=== PATIENT | female | born 1985 | race Caucasian/White ===

== ENCOUNTER 2024-09-24 13:46 | Emergency (ER) | payer BC, SELFPAY ==
[2024-09-24 14:00] VITALS: BP 139/83; PULSE 108; TEMP 37.2; O2SAT 100; BMI 29.2
--- NOTE | 2024-09-24 14:08 | ED.UPPEXIN1 ---
HPI HPI - Extremity Injury (Upper) General Chief Complaint: Extremity Injury, Upper Stated Complaint: UPPER EXTREMITY INJURY Time Seen by Provider: 09/24/24 14:01 Source: patient Mode of arrival: walk-in Limitations: no limitations History of Present Illness HPI narrative: 39 year old female presents to the ED for right wrist pain, N/T. Onset was today while using her wood splitter. States it pulled on her arm. The pain is worse when making a fist. Denies kierra to the elbow. Related Data Allergies Allergy/AdvReac Type Severity Reaction Status Date / Time acetaminophen (From Vicodin) AdvReac Severe teeth icth Verified 09/24/24 14:04 hydrocodone (From Vicodin) AdvReac Severe teeth icth Verified 09/24/24 14:04 Opioid HPI Opioid Management Most Recent Pain and Opioid Data: No Data to Display Review of Systems ROS Constitutional Denies: fever or chills Ears, nose, mouth, and throat Denies: neck pain Cardiovascular Denies: chest pain Respiratory Denies: shortness of breath Musculoskeletal Reports: extremity pain and joint pain; Denies: back pain, neck pain or extremity swelling Neurological Reports: numbness in extremities; Denies: weakness in extremities PFSH PFSH Social History Little interest or pleasure in doing things: not at all Feeling down, depressed, or hopeless: not at all Exam Constitutional Vital Signs, click to edit/add: Last Vital Signs Temp 99 F 09/24/24 14:00 Pulse 108 H 09/24/24 14:00 Resp 20 09/24/24 14:00 BP 139/83 09/24/24 14:00 Pulse Ox 100 09/24/24 14:00 O2 Del Method Room Air 09/24/24 14:00 Common normals: no apparent distress and oriented x3 General appearance: cooperative Eye Common normals: conjunctivae normal and no scleral icterus Neck & C-Spine Common normals: supple Chest Chest: symmetrical chest wall rise Cardio Common normals: regular rate Rate: regular rate Peripheral pulses: radial pulses present Extremity Other: Tenderness to right wrist. No swelling or deformity noted. Full ROM to right hand and elbow. Denies tenderness to right hand and elbow. Distal sensation intact. Neuro Common normals: oriented x3 and moves all extremities Sensorium/orientation: awake and alert Course Vital Signs Vital signs: Vital Signs Temperature 99 F 09/24/24 14:00 Pulse Rate 108 H 09/24/24 14:00 Respiratory Rate 20 09/24/24 14:00 Blood Pressure 139/83 09/24/24 14:00 Pulse Oximetry 100 09/24/24 14:00 Oxygen Delivery Method Room Air 09/24/24 14:00 Temperature 99 F 09/24/24 14:00 Pulse Rate 108 H 09/24/24 14:00 Respiratory Rate 20 09/24/24 14:00 Blood Pressure 139/83 09/24/24 14:00 Pulse Oximetry 100 09/24/24 14:00 Oxygen Delivery Method Room Air 09/24/24 14:00 MDM - Extremity Injury (Upper) MDM Narrative Medical decision making narrative: X-ray showed no acute osseous abnormality. Findings were discussed. An vi wrap was applied. The application was checked and was appropriate; the RUE remained NVI. Follow up with pcp and/or an orthopedist for a recheck, further evaluation and treatment. Differential Diagnosis Differential diagnosis: Likely sprain and strain of wrist and fracture of wrist Medical Records Attestation: I reviewed the patient's medical records. Imaging Data XR: Attestation: I have reviewed the pertinent imaging results. Radiologist's impression: ITS Impressions Wrist X-Ray 09/24/24 14:17 IMPRESSION: 1. No acute bone abnormality. Electronically authenticated by: MARCELLO JOHNS Date: 09/24/2024 14:35 Discharge Plan Discharge Chief Complaint: Extremity Injury, Upper Clinical Impression: Sprain of right wrist Patient Disposition: Home, Self-Care Time of Disposition Decision: 14:42 Condition: Good Mode of Transportation: Private Vehicle Print Language: Filipino Instructions: How to Use an Elastic Bandage (ED), Wrist Sprain (ED) Additional Instructions: Return to the ER for worsening symptoms. Referrals: FRACISCO YI [Primary Care Provider] - 1 week Marcello Granger MD [Physician] - 1 week
--- NOTE | 2024-09-24 14:17 | XR_ITS ---
The [address] [address] Patient Name: GÓMEZ MCRAE MRN: [id number] date: 1985 Sex: F Assigned Patient Location: ER Current Patient Location: ED.MAIN Accession/Order Number: [id number] Exam Date: 09/24/2024 14:10 Report Date: 09/24/2024 14:35 At the request of: LILIBETH CANNON Procedure: XR wrist RT min 3V PROCEDURE: XR wrist RT min 3V HISTORY: injury COMPARISON: None. FINDINGS: BONES:Separate corticated ossification distal to the ulnar stylet process; remote fracture with incomplete osseous healing versus an ectopic bone formation. No acute fracture, dislocation, bone lesion. No significant degenerative joint disease. SOFT TISSUES:No visible soft tissue swelling. EFFUSION:None visible. OTHER: Negative. XR/XR wrist RT min 3V IMPRESSION: 1. No acute bone abnormality. Electronically authenticated by: PATSY JOHNS Date: 09/24/2024 14:35
== END 2024-09-24 15:00 | disposition home or self-care (01) ==
PROVIDERS: Emergency Provider Emergency Medicine; PCP Family Medicine
DX: S63.501A Unspecified sprain of right wrist, initial encounter (principal); X50.9XXA Other and unspecified overexertion or strenuous movements or postures, initial encounter
CPT/HCPCS: 73110; 99283

== ENCOUNTER 2024-11-25 11:42 | Outpatient (OUT) | payer BC, SELFPAY ==
--- NOTE | 2024-11-25 | XR_ITS ---
[address] [address] Patient Name: GÓMEZ MCRAE MRN: [id number] date: 1985 Sex: F Assigned Patient Location: Current Patient Location: Accession/Order Number: [id number] Exam Date: 11/25/2024 13:25 Report Date: 11/25/2024 13:26 At the request of: PATSY MARTÍNEZ MD Procedure: XR wrist RT min 3V 3 views right wrist plain film COMPARISON: 09/24/2024 HISTORY: Acute right wrist pain. Pain into the fifth metacarpal region. ACUTE FINDINGS: No acute findings. Old ulnar styloid fracture. DEGENERATIVE CHANGE: Unremarkable SOFT TISSUE FINDINGS: Unremarkable JOINT EFFUSION: None POSTOP CHANGES: None BONE MINERALIZATION: Adequate XR/XR wrist RT min 3V IMPRESSION: No acute bony findings. Impression dictated by: Luciano Stratton M.D.11/25/2024 1:26 PM Dictation Location: [facility] Electronically authenticated by: [id number] Y Date: 11/25/2024 13:26
--- OUTSIDE RECORDS SUMMARY | 2024-11-25 11:56 | XMS_ITS | CCD ---
Author Organization [facility] Care Team Providers Care Mobile Home Installer Name Role Phone DEANGELO MUKHERJEE Unavailable Unavailable CHRIS RAMOS Unavailable Unavailable Daren, Jayson U. Unavailable Unavailable No Family Physician Unavailable Unavailable No Family Physician Unavailable Unavailable Daren, Jayson U. Unavailable Unavailable No Family Physician Unavailable Unavailable No Family Physician Unavailable Unavailable Daren, Jayson Uddin Unavailable Unavailable Yunier, Humaira Unavailable Unavailable Yunier, Humaira Unavailable Unavailable Yunier, Humaira Unavailable Unavailable Yunier, Humaira Unavailable Unavailable EPIFANIO MOSLEY JR Referring Unavailable Pawel HA Admitting Unavailable Pawel HA Attending Unavailable EPIFANIO MOSLEY JR Referring Unavailable Unavailable Primary Care Provider UnavailANNA Cooley Attending Unavailable FLAVIA VILLANUEVA Primary Care Unavailable Bunting, DO Saad Primary Care Provider [phone] Bunting, DO Saad Attending Provider Bunting, DO Saad Primary Care Provider DO Bharath Soto Attending Provider Bunting, DO Saad Primary Care Provider [phone] DO Bharath Soto Attending Provider Bunting, Saad R Primary Care Provider Bunting, DO Saad Primary Care Provider [phone] Bunting, DO Saad Attending Provider MICHAEL LEIGH Attending Unavailable MICHAEL LEIGH Referring Unavailable MICHAEL LEIGH Attending Unavailable MAHESH ZAPATA Attending Unavailable Bunting, Saad Attending Unavailable Bunting, Saad Primary Care Unavailable Bunting, Saad Admitting Unavailable Bunting, Saad Attending Unavailable Bunting, Saad Primary Care Unavailable Bunting, Saad Admitting Unavailable Allergies Allergy Classification Reported Allergen(s) Allergy Type Date of Onset Reaction(s) Facility (6 sources) Acetaminophen / HYDROcodone; Translations: [HYDROCODONE-ACET AMINOPHEN] Drug Allergy 5 Rash [facility] Repository (6 sources) avocado oil; Translations: [AVOCADO] Drug Allergy 5 Other (See Comments), Anaphylaxis, Hives, Itching, Unknown [facility] Repository Medications Current Medications Medication Drug Class(es) Dates Sig (Normalized) Sig (Original) fluticasone propionate 0.05 mg/actuat metered dose nasal spray (1 source) Corticosteroid Start: 12-07-2020 take 2 spray(s) nasal route once daily fluticasone (FLONASE) 50 MCG/ACT nasal spray Indications: Retention cyst of nasal sinus SPRAY 2 SPRAYS INTO EACH NOSTRIL EVERY DAY 1 Bottle 1 12/07/2020 Active ibuprofen 200 mg oral tablet (4 sources) Nonsteroidal Anti-inflammatory Drug ibuprofen 200 MG tablet Take by mouth Active meloxicam 15 mg oral tablet (1 source) Nonsteroidal Anti-inflammatory Drug Start: 03-19-2022 take 1 tablet by mouth once daily as needed for pain meloxicam (MOBIC) 15 MG tablet Take 1 tablet by mouth daily as needed for Pain 90 tablet 1 03/19/2022 Active SUMAtriptan 50 mg oral tablet (1 source) Serotonin-1b and Serotonin-1d Receptor Agonist Start: 05-03-2018 SUMAtriptan (IMITREX) 50 MG tablet Indications: Intractable migraine with status migrainosus, unspecified migraine type Take 1 tablet by mouth once as needed for Migraine Can take second dose 2 hrs later if headache persists 9 tablet 0 05/03/2018 Active Completed/Discontinued Medications Medication Drug Class(es) Dates Sig (Normalized) Sig (Original) acetaminophen 500 mg oral tablet (5 sources) Start: 03-19-2022 End: 03-19-2022 acetaminophen (TYLENOL) tablet 1,000 mg acetaminophen (T ylenol) 325 MG suppository Insert into the rectum Active 1 ml ketorolac tromethamine 30 mg/ml cartridge (1 source) Nonsteroidal Anti-inflammatory Drug, Cyclooxygenase Inhibitor Start: 03-19-2022 End: 03-19-2022 ketorolac (TORADOL) injection 30 mg Problems Active Problems Problem Classification Problem Date Documented Date Episodic/Chronic Abdominal pain (2 sources) Finding of sensation of abdomen; Translations: [Unspecified abdominal pain] 05-14-2024 Episodic Adjustment disorders (1 source) Adjustment disorder with depressed mood; Translations: [Adjustment disorder with depressed mood] Onset: 07-07-2018 07-07-2018 Chronic Disorders of lipid metabolism (1 source) Hypercholesterolemia; Translations: [Pure hypercholesterolemia, unspecified] Onset: 05-11-2004 05-01-2018 Chronic Headache; including migraine (1 source) Migraine; Translations: [Migraine, unspecified, not intractable, without status migrainosus] Onset: 07-04-2018 07-04-2018 Chronic Immunizations and screening for infectious disease (2 sources) Patient encounter status; Translations: [Encounter for screening for human papillomavirus (HPV)] 05-14-2024 Episodic Nonmalignant breast conditions (1 source) Unspecified lump in the right breast, unspecified quadrant; Translations: [Unspecified lump in the right breast, unspecified quadrant] Onset: 06-06-2024 Episodic Other endocrine disorders (1 source) Polycystic ovary; Translations: [Polycystic ovarian syndrome] Onset: 02-27-2004 08-25-2017 Chronic Other female genital disorders (2 sources) Cervical intraepithelial neoplasia grade 1; Translations: [Mild cervical dysplasia] 05-14-2024 Episodic Other non-traumatic joint disorders (1 source) Pain in right hip; Translations: [Pain in right hip] Onset: 10-05-2018 Episodic Other screening for suspected conditions (not mental disorders or infectious disease) (2 sources) Cancer cervix screening status; Translations: [Encounter for screening for malignant neoplasm of cervix] 05-14-2024 Episodic Superficial injury; contusion (1 source) Contusion of right forearm; Translations: [Contusion of right forearm, initial encounter] Episodic Unclassified (1 source) Unknown / UNK(Unknown) Onset: 05-07-2018 Past or Other Problems Problem Classification Problem Date Documented Date Episodic/Chronic Cancer of cervix (1 source) Low grade squamous intraepithelial lesion on cervical Papanicolaou smear; Translations: [Low grade squamous intraepithelial lesion on cytologic smear of cervix (LGSIL)] Onset: 09-21-2016 08-25-2017 Episodic Residual codes; unclassified (1 source) Influenza vaccination declined; Translations: [Immunization not carried out because of patient refusal] Onset: 08-12-2020 08-12-2020 Episodic Residual codes; unclassified (1 source) Tobacco user; Translations: [Tobacco use] Onset: 08-12-2020 08-12-2020 Episodic Sprains and strains (1 source) Acetabular labrum tear; Translations: [Other sprain of unspecified hip, initial encounter] Onset: 10-27-2015 08-25-2017 Episodic Unclassified (1 source) R51 XRAY Onset: 05-07-2018 Results Test Name Value Interpretation Reference Range Facility US extremity nonvascularon 1 US extremity nonvascular [facility] Main [place] [address] [place] [address] Ultrasound Report Signed Patient: Jayla Perla MR#: [id number] : 1985 Acct:[id number] Age/Sex: 39 / F ADM Date: 06/06/24 Loc: [facility] Room: Type: [facility] Attending Dr: Saad Mcclain DO Ordering Provider: Saad Mcclain DO Date of Service: 06/06/24 US/US extremity nonvascular: BILATERAL AXILLARY MASS ([id number]) US/US extremity nonvascular: AXILLARY Copies to: Saad Mcclain DO US extremity nonvascular, US extremity nonvascular 06/06/2024 8:09 AM SIGNS AND SYMPTOMS: Axillary pain bilaterally COMPARISON: None. FINDINGS: Grayscale and color Doppler sonographic images of the axilla were obtained bilaterally. Within the left axilla there are benign-appearing lymph nodes measuring up to 1.1 cm in short axis without evidence of cortical thickening. There is no evidence of mass, architectural distortion, fluid collection, or cystic change. Within the right axilla there are benign-appearing lymph nodes measuring up to 0.5 cm in short axis. There is no evidence of cortical thickening. No evidence of mass, architectural distortion, fluid collection, or cystic change. US/US extremity nonvascular IMPRESSION: Prominent axillary lymph nodes are noted, left greater than right. No features suspicious for malignancy. Close clinical observation is recommended with repeat imaging as symptoms warrant. ASSESSMENT: BIRADS-2 Benign RECOMMENDATION: Close clinical observation is recommended with repeat imaging as symptoms warrant. Impression dictated by: Sri Ricci M.D.06/06/2024 8:36 AM Dictation Location: [facility] Tech: Jennifer Méndez Transcribed By: JAMIE 06/06/24835 Dictated By: Sri Ricci II, MD 06/06/24830 Signed By: 06/06/24835 Normal [facility] Alanine aminotransferase [En zymatic activity/volume] in Serum or PlasmaOrdered By: Saad Bunting on 05-29-2024 ALT [Catalytic activity/Vol] 9 U/L Normal 7-52 [facility] Comment on above: Performed By: #### C MP, CBC, LIPID, LDH #### [place] [address] [place] Albumin [Mass/volume] in Ser um or Plasma by Bromocresol green (BCG) dye binding methoOrdered By: Saad Bunting on 05-29-2024 Albumin BCG dye [Mass/Vol] 4.6 g/dL 3.5-5.7 [facility] Alkaline phosphatase [Enzyma tic activity/volume] in Serum or PlasmaOrdered By: Saad Bunting on 05-29-2024 ALP [Catalytic activity/Vol] 63 U/L Normal 34-104 [facility] Comment on above: Performed By: #### C MP, CBC, LIPID, LDH #### [facility] [address] [place] [address] Aspartate aminotransferase [ Enzymatic activity/volume] in Serum or PlasmaOrdered By: Saad Bunting on 05-29-2024 AST [Catalytic activity/Vol] 13 U/L Normal 13-39 [facility] Comment on above: Performed By: #### C MP, CBC, LIPID, LDH #### [facility] [address] [place] [address] Automated basophil %Ordered By: Saad Bunting on 05-29-2024 Basophils/100 WBC (Bld) 0.7 % Normal . [facility] Comment on above: Performed By: #### C MP, CBC, LIPID, LDH #### [facility] [address] [place] [address] [place] Automated basophil countOrde red By: Saad Bunting on 10-09-2024 Basophils (Bld) [#/Vol] 0.0 10*3/uL Normal 0.0-0.2 [facility] Comment on above: Result Comment: PERF ORMED BY: [place] [address] PATHOLOGIST ENAMEL APPLIER RENE VALENZUELA M.D. Performed By: #### C MP, CBC, LIPID, LDH #### [address] Automated blood monocyte cou ntOrdered By: Saad Bunting on 05-29-2024 Monocytes (Bld) [#/Vol] 0.4 10*3/uL Normal 0.0-0.8 [facility] Comment on above: Performed By: #### C MP, CBC, LIPID, LDH #### [address] Automated eosinophil %Ordere d By: Saad Bunting on 05-29-2024 Eosinophils/100 WBC (Bld) 1.9 % Normal . [facility] Comment on above: Performed By: #### C MP, CBC, LIPID, LDH #### [address] Automated eosinophil countOr dered By: Saad Bunting on 05-29-2024 Eosinophils (Bld) [#/Vol] 0.1 10*3/uL Normal 0.0-0.45 [facility] Comment on above: Performed By: #### C MP, CBC, LIPID, LDH #### [address] Automated monocyte %Ordered By: Saad Bunting on 05-29-2024 Monocytes/100 WBC (Bld) 5.1 % Normal . [facility] Comment on above: Performed By: #### C MP, CBC, LIPID, LDH #### [address] Automated neutrophil %Ordere d By: Saad Bunting on 05-29-2024 Neutrophils/100 WBC (Bld) 60.9 % Normal . [facility] Comment on above: Performed By: #### C MP, CBC, LIPID, LDH #### [facility] [address] [place] [address] [place] Bilirubin.total [Mass/volume ] in Serum or PlasmaOrdered By: Saad Bunting on 05-29-2024 Bilirubin [Mass/Vol] 0.6 mg/dL Normal 0.3-1.0 [facility] Comment on above: Performed By: #### C MP, CBC, LIPID, LDH #### [facility] [address] [place] [address] [place] Calcium [Mass/volume] in Ser um or PlasmaOrdered By: Saad Bunting on 05-29-2024 Calcium [Mass/Vol] 9.4 mg/dL Normal 8.6-10.3 [facility] Comment on above: Performed By: #### C MP, CBC, LIPID, LDH #### [facility] [address] Carbon dioxide, total [Moles /volume] in Serum or PlasmaOrdered By: Saad Bunting on 05-29-2024 CO2 [Moles/Vol] 23.8 mmol/L Normal 21.0-31.0 [facility] Comment on above: Performed By: #### C MP, CBC, LIPID, LDH #### [facility] [address] [place] [address] [place] Chloride [Moles/volume] in S nidhi or PlasmaOrdered By: Saad Bunting on 05-29-2024 Chloride [Moles/Vol] 107 mmol/L Normal 98-107 [facility] Comment on above: Performed By: #### C MP, CBC, LIPID, LDH #### [facility] [address] [place] [address] [place] Cholesterol [Mass/volume] in Serum or PlasmaOrdered By: Saad Bunting on 05-29-2024 Cholesterol [Mass/Vol] 204 mg/dL High 140-200 [facility] Comment on above: Chol less than 200 m g/dl low riskChol 201-239 mg/dl borderline riskChol 240 mg/dl and greater high risk Result Comment: Chol less than 200 mg/dl low risk Chol 201-239 mg/dl borderline risk Chol 240 mg/dl and greater high risk Performed By: #### C MP, CBC, LIPID, LDH #### [address] Cholesterol in LDL Calc [Mas s/Vol]Ordered By: Saad Mcclain on 05-29-2024 Cholesterol in LDL [Mass/Vol] 127 mg/dL High 0-100 [facility] Comment on above: LDL ATP III CLASSIFI CATIONLDL less than 100 mg/dL OptimalLDL 100-129 mg/dL Near or above optimalLDL 130-159 mg/dL Borderline highLDL 160-189 mg/dL HighLDL greater than 189 mg/dL Very high Cholesterol in VLDL Calc [Ma ss/Vol]Ordered By: Saad Mcclain on 05-29-2024 Cholesterol in VLDL [Mass/Vol] 32 mg/dL [facility] Complete Blood Count Auto Di ffon 05-29-2024 Mean Corpuscular HGB Conc 33.8 g/dL Normal 32.0-35.0 [facility] Comment on above: Performed By: #### C MP, CBC, LIPID, LDH #### [address] NRBC% 0.1 /100{WBC} Normal 0-0.5 [facility] Comment on above: Performed By: #### C MP, CBC, LIPID, LDH #### [address] Comprehensive Metabolic Pane aurora 05-29-2024 Albumin [Mass/Vol] 4.6 g/dL Normal 3.5-5.7 [facility] Comment on above: Performed By: #### C MP, CBC, LIPID, LDH #### [place] [address] [place] GFR/1.73 sq M.predicted MDRD (S/P/Bld) [Vol rate/Area] mL/min/{1.73_m2} Normal [facility] Comment on above: Performed By: #### C MP, CBC, LIPID, LDH #### [address] Creatinine [Mass/volume] in Serum or PlasmaOrdered By: Saad Mcclain on 05-29-2024 Creatinine [Mass/Vol] 0.73 mg/dL Normal 0.60-1.20 [facility] Comment on above: Performed By: #### C MP, CBC, LIPID, LDH #### [facility] [address] Erythrocyte distribution wid th [Ratio] by Automated countOrdered By: Saad Mcclain on 05-29-2024 Erythrocyte distribution width (RBC) [Ratio] 13.5 % Normal 11.9-15.3 [facility] Comment on above: Performed By: #### C MP, CBC, LIPID, LDH #### [address] Erythrocytes [#/volume] in B lood by Automated countOrdered By: Saad Mcclain on 05-29-2024 RBC (Bld) [#/Vol] 4.57 10*6/uL Normal 3.60-5.00 [facility] Comment on above: Performed By: #### C MP, CBC, LIPID, LDH #### [address] Glucose [Mass/volume] in Ser um or PlasmaOrdered By: Saad Mcclain on 05-29-2024 Glucose [Mass/Vol] 93 mg/dL Normal 70-100 [facility] Comment on above: ADA recommended refe rence rangeRandom Glucose Reference Range is dependent on time and content of last meal. Glucose of more than 200 mg/dL in a nonstressed, ambulatory subject supports the diagnosis of Diabetes Mellitus. Result Comment: [place] om Glucose Reference Range is dependent on time and content of last meal. Glucose of more than 200 mg/dL in a nonstressed, ambulatory subject supports the diagnosis of Diabetes Mellitus. ADA recommended reference range Performed By: #### C MP, CBC, LIPID, LDH #### [address] Hematocrit [Volume Fraction] of Blood by Automated countOrdered By: Saad Mcclain on 05-29-2024 Hematocrit (Bld) [Volume fraction] 40.2 % Normal 34.0-46.4 [facility] Comment on above: Performed By: #### C MP, CBC, LIPID, LDH #### [facility] [address] Hemoglobin [Mass/volume] in BloodOrdered By: Saad Mcclain on 05-29-2024 Hemoglobin (Bld) [Mass/Vol] 13.6 g/dL Normal 11.8-15.4 [facility] Comment on above: Performed By: #### C MP, CBC, LIPID, LDH #### [facility] [address] LDH Lactate Dehydrogenaseon 05-29-2024 LDH Lactate Dehydrogenase 117 U/L Low 140-271 [facility] Comment on above: Performed By: #### C MP, CBC, LIPID, LDH #### [facility] [address] Lactate dehydrogenase [Enzym atic activity/volume] in Serum or Plasma by Lactate to pyOrdered By: Saad Mcclain on 05-29-2024 LDH Lactate to pyruvate reaction [Catalytic activity/Vol] 117 U/L Low 140-271 [facility] Leukocytes [#/volume] correc peggy for nucleated erythrocytes in Blood by Automated counOrdered By: Saad Mcclain on 05-29-2024 WBC corrected for nucl RBC Auto (Bld) [#/Vol] 6.9 10*3/uL 3.8-11.6 [facility] Leukocytes [#/volume] in Blo od by Automated countOrdered By: Saad Mcclain on 05-29-2024 WBC (Bld) [#/Vol] 6.9 10*3/uL Normal 3.8-11.6 [facility] Comment on above: Performed By: #### C MP, CBC, LIPID, LDH #### [facility] [address] Lipid Panelon 05-29-2024 LDL Cholesterol,Calculate d 127 mg/dL High 0-100 [facility] Comment on above: Result Comment: LDL ATP III CLASSIFICATION LDL less than 100 mg/dL Optimal LDL 100-129 mg/dL Near or above optimal LDL 130-159 mg/dL Borderline high LDL 160-189 mg/dL High LDL greater than 189 mg/dL Very high Performed By: #### C MP, CBC, LIPID, LDH #### [address] Triglyceride w/Reflex 164 mg/dL High 0-149 [facility] Comment on above: Result Comment: TRIG ATP III CLASSIFICATION TRIG less than 150 mg/dL Normal TRIG 150-199 mg/dL Borderline high TRIG 200-500 mg/dL High TRIG greater than 500 mg/dL Very high Standard traceable to the Center for Disease Conrtrol and Prevention (CDC) test method. Performed By: #### C MP, CBC, LIPID, LDH #### [address] VLDL CHOLESTEROL 32 mg/dL Normal [facility] Comment on above: Performed By: #### C MP, CBC, LIPID, LDH #### [address] Lymphocytes [#/volume] in Bl ood by Automated countOrdered By: Saad Bunting on 05-29-2024 Lymphocytes (Bld) [#/Vol] 2.2 10*3/uL Normal 1.00-4.8 [facility] Comment on above: Performed By: #### C MP, CBC, LIPID, LDH #### [address] Lymphocytes/100 leukocytes i n Blood by Automated countOrdered By: Saad Bunting on 05-29-2024 Lymphocytes/100 WBC (Bld) 31.4 % Normal . [facility] Comment on above: Performed By: #### C MP, CBC, LIPID, LDH #### [address] MCH [Entitic mass] by Automa peggy countOrdered By: Saad Bunting on 05-29-2024 MCH (RBC) [Entitic mass] 29.7 pg Normal 24.7-34.3 [facility] Comment on above: Performed By: #### C MP, CBC, LIPID, LDH #### [address] MCHC Auto (RBC) [Mass/Vol]Or dered By: Saad Bunting on 05-29-2024 MCHC (RBC) [Mass/Vol] 33.8 g/dL 32.0-35.0 [facility] MCV [Entitic volume] by Auto mated countOrdered By: Saad Bunting on 05-29-2024 MCV (RBC) [Entitic vol] 87.9 fL Normal 80-100 [facility] Comment on above: Performed By: #### C MP, CBC, LIPID, LDH #### [address] [place] 05-29-2024 Monotest Negative Normal Negative [facility] Comment on above: Result Comment: PERF ORMED BY: [place] [address] PATHOLOGIST ENAMEL APPLIER RENE VALENZUELA M.D. Performed By: #### M ONOTEST #### [address] Neutrophils [#/volume] in Bl ood by Automated countOrdered By: Saad Bunting on 05-29-2024 Neutrophils (Bld) [#/Vol] 4.2 10*3/uL Normal 1.8-7.7 [facility] Comment on above: Performed By: #### C MP, CBC, LIPID, LDH #### [address] No Panel InformationOrdered By: Saad Bunting on 05-29-2024 Estimated GFR (CKD-EPI) > 60.0 mL/Min [facility] Creatinine Clearance (Chem N/A [facility] Nucleated erythrocytes [Pres ence] in Blood by Automated countOrdered By: Saad Bunting on 05-29-2024 Nucleated RBC Auto Ql (Bld) 0.1 /100{WBC} 0-0.5 [facility] Platelet mean volume [Entiti c volume] in Blood by Automated countOrdered By: Saad Bunting on 05-29-2024 Platelet mean volume (Bld) [Entitic vol] 8.4 fL Normal 6.3-10.7 [facility] Comment on above: Performed By: #### C MP, CBC, LIPID, LDH #### [address] Platelets [#/volume] in Bloo d by Automated countOrdered By: Saad Bunting on 05-29-2024 Platelets (Bld) [#/Vol] 304 10*3/uL Normal 150-450 [facility] Comment on above: Performed By: #### C MP, CBC, LIPID, LDH #### [address] Potassium [Moles/volume] in Serum or PlasmaOrdered By: Saad Bunting on 05-29-2024 Potassium [Moles/Vol] 4.0 mmol/L Normal 3.5-5.1 [facility] Comment on above: Performed By: #### C MP, CBC, LIPID, LDH #### [address] Protein [Mass/volume] in Ser um or PlasmaOrdered By: Saad Bunting on 05-29-2024 Protein [Mass/Vol] 7.1 g/dL Normal 6.4-8.9 [facility] Comment on above: Performed By: #### C MP, CBC, LIPID, LDH #### [address] Serum globulin measurement b y calculation (mass/volume)Ordered By: Saad Bunting on 05-29-2024 Globulin (S) [Mass/Vol] 2.5 g/dL Normal [facility] Comment on above: Performed By: #### C MP, CBC, LIPID, LDH #### [address] Serum heterophile antibody d etection by latex agglutinationOrdered By: Saad Bunting on 05-29-2024 Heterophile Ab LA Ql (S) Negative Negative [facility] Serum or plasma albumin/glob ulin mass ratioOrdered By: Saad Bunting on 05-29-2024 Albumin/Globulin [Mass ratio] 1.8 {ratio} Normal [facility] Comment on above: Performed By: #### C MP, CBC, LIPID, LDH #### [address] [place] [address] [place] Serum or plasma anion gap de terminationOrdered By: Saad Bunting on 05-29-2024 Anion gap [Moles/Vol] 11.2 mmol/L Normal 6.0-15.0 [facility] Comment on above: Performed By: #### C MP, CBC, LIPID, LDH #### [address] Serum or plasma high density lipoprotein (HDL) cholesterol measurementOrdered By: Saad Bunting on 05-29-2024 Cholesterol in HDL [Mass/Vol] 44 mg/dL Normal 23-92 [facility] Comment on above: HDL CHOL ATP-III CLA SSIFICATION Cardiovascular RiskHDL > or equal to 60 mg/dL LOWHDL < 40 mg/dL HIGH Result Comment: HDL CHOL ATP-III CLASSIFICATION Cardiovascular Risk HDL > or equal to 60 mg/dL LOW HDL < 40 mg/dL HIGH Performed By: #### C MP, CBC, LIPID, LDH #### [address] Serum or plasma total choles terol/high density lipoprotein (HDL) cholesterol mass ratOrdered By: Saad Bunting on 05-29-2024 Cholesterol.total/Cho lesterol in HDL [Mass ratio] 4.6 {ratio} Normal <5.0 [facility] Comment on above: Result Comment: PERF ORMED BY: [place] [address] PATHOLOGIST ENAMEL APPLIER RENE VALENZUELA M.D. Performed By: #### C MP, CBC, LIPID, LDH #### [address] Sodium [Moles/volume] in Ser um or PlasmaOrdered By: Saad Bunting on 05-29-2024 Sodium [Moles/Vol] 138 mmol/L Normal 136-145 [facility] Comment on above: Performed By: #### C MP, CBC, LIPID, LDH #### [address] Triglyceride [Mass/volume] i n Serum or PlasmaOrdered By: Saad Bunting on 05-29-2024 Triglyceride [Mass/Vol] 164 mg/dL High 0-149 [facility] Comment on above: TRIG ATP III CLASSIF ICATIONTRIG less than 150 mg/dL NormalTRIG 150-199 mg/dL Borderline highTRIG 200-500 mg/dL High TRIG greater than 500 mg/dL Very highStandard traceable to the Center for Disease Conrtrol and Prevention (CDC) test method. Urea nitrogen [Mass/volume] in Serum or PlasmaOrdered By: Saad Mcclain on 05-29-2024 Urea nitrogen [Mass/Vol] 13 mg/dL Normal 7-25 [facility] Comment on above: Performed By: #### C MP, CBC, LIPID, LDH #### [facility] [address] Image-guided pap and hpv mrn a e6/e7 reflex genotypes 16, 18/45on 05-21-2024 Radio Antenna Installer Cyto stain Nom (Cvx/Vag) [ID] Comment [facility] Comment on above: Mynor ramesh, Seed Trucker (ASCP) Cytology report Cyto stain Doc (Cvx/Vag) Comment Abnormal [facility] Comment on above: EPITHELIAL CELL ABNO RMALITY. LOW-GRADE SQUAMOUS INTRAEPITHELIAL LESION (LSIL); (ENCOMPASSING HUMAN PAPILLOMAVIRUS /MILD DYSPLASIA/CIN1). Cytology report Cyto stain.thin prep Doc (Cvx/Vag) Comment [facility] Comment on above: This liquid based Th inPrep(R) pap test was screened with the use of an image guided system. HPV 16+18+31+33+35+39+45+ 51+52+56+58+59+66+68 DNA Probe+sig amp Ql (Cvx) Negative Negative [facility] Comment on above: This nucleic acid am plification test detects fourteen high- risk HPV types (16,18,31,33,35,39,45,51,52,56,58,59,66,68) without differentiation. HPV Genotype Reflex Comment [facility] Comment on above: Criteria not met, HP V Genotype not performed. Interpretation and review of laboratory results Abnormal [facility] Microscopic observation Other stain Nom (Unsp spec) . [facility] Note: Comment [facility] Comment on above: The Pap smear is a s creening test designed to aid in the detection of premalignant and malignant conditions of the uterine cervix. It is not a diagnostic procedure and should not be used as the sole means of detecting cervical cancer. Both false-positive and false-negative reports do occur. Pathologist Cyto stain Nom (Cvx/Vag) [ID] Comment [facility] Comment on above: Evelia Moran MD, Pa thologist Recommended follow-up Cyto stain Nom (Cvx/Vag) Comment Abnormal [facility] Comment on above: Suggest follow up as clinically appropriate. Statement of adequacy Cyto stain (Cvx/Vag) [Interp] Comment [facility] Comment on above: Satisfactory for wandy luation. Endocervical and/or squamous metaplastic cells (endocervical component) are present. Performed at: - [facility] [address] [id number] Park Interpretive Specialist: Ashley Ladd MD, Phone: [phone] Performed at: - [facility] [id number] Park Interpretive Specialist: Ashley Ladd MD, Phone: [phone] Specimen Comment: No. of containers..01 ThinPrep Vial [facility] No Panel Informationon 05-21 Diagnosis ICD code [Identifier] Comment [facility] Comment on above: Z12.4 Z11.51 R87.612 Choriogonadotropin.beta subu nit [Units/volume] in Serum or PlasmaOrdered By: Bharath Soto on 11-02-2022 HCG.beta subunit Qn m[IU]/mL [facility] Comment on above: Approximate Approxim ate hCG Gestational Age Range (mIU/ml) (weeks)0.2-1 5-50 1-2 50-500 2-3 100-5,000 3-4 500-10,000 4-5 1,000-50,000 5-6 10,000-100,000 6-8 15,000-200,000 8-12 10,000-100,000 Choriogonadotropin.beta subu nit [Units/volume] in Serum or PlasmaOrdered By: Bharath Soto on 10-04-2022 HCG.beta subunit Qn 1.01 m[IU]/mL [facility] Comment on above: Approximate Approxim ate hCG Gestational Age Range (mIU/ml) (weeks)0.2-1 5-50 1-2 50-500 2-3 100-5,000 3-4 500-10,000 4-5 1,000-50,000 5-6 10,000-100,000 6-8 15,000-200,000 8-12 10,000-100,000 Albumin [Mass/volume] in Ser um or PlasmaOrdered By: Saad Mcclain on 05-25-2022 Albumin [Mass/Vol] 4.0 g/dL 3.2-5.5 [facility] Cholesterol [Mass/volume] in Serum or PlasmaOrdered By: Saad Mcclain on 05-25-2022 Cholesterol [Mass/Vol] 215 mg/dL 140-200 [facility] Comment on above: Chol less than 200 m g/dl low riskChol 201-239 mg/dl borderline riskChol 240 mg/dl and greater high risk Cholesterol in LDL Calc [Mas s/Vol]Ordered By: Saad Mcclain on 05-25-2022 Cholesterol in LDL [Mass/Vol] 131 mg/dL 0-100 [facility] Comment on above: LDL ATP III CLASSIFI CATIONLDL less than 100 mg/dL OptimalLDL 100-129 mg/dL Near or above optimalLDL 130-159 mg/dL Borderline highLDL 160-189 mg/dL HighLDL greater than 189 mg/dL Very high Cholesterol in VLDL Calc [Ma ss/Vol]Ordered By: Saad Mcclain on 05-25-2022 Cholesterol in VLDL [Mass/Vol] 32 mg/dL [facility] Creatinine and Glomerular fi ltration rate.predicted panel (S/P/Bld)Ordered By: Saad Mcclain on 05-25-2022 Creatinine [Mass/Vol] 0.73 mg/dL 0.44-1.03 [facility] Estimated glomerular filtrat ion rate (GFR) non- AmericanOrdered By: Saad Mcclain on 05-25-2022 GFR/1.73 sq M.predicted among non-blacks MDRD (S/P/Bld) [Vol rate/Area] > 60 mL/Min [facility] Globulin Calc (S) [Mass/Vol] Ordered By: Saad Mcclain on 05-25-2022 Globulin (S) [Mass/Vol] 2.9 g/dL [facility] No Panel InformationOrdered By: Saad Mcclain on 05-25-2022 Estimated GFR () > 60 mL/Min [facility] Comment on above: GFR estimated refere nce range: According to KDOQI guidelines, <60 ml/min/1.73m2 is sufficient to diagnose a patient with chronic kidney disease. Pharmacy Creatinine Clearance (Chem N/A [facility] Protein [Mass/volume] in Ser um or PlasmaOrdered By: Saad Mcclain on 05-25-2022 Protein [Mass/Vol] 6.9 g/dL 6.1-7.9 [facility] Serum or plasma alanine jean-baptiste otransferase measurement without P-5'-P (enzymatic activiOrdered By: Saad Mcclain on 05-25-2022 ALT No additional P-5'-P [Catalytic activity/Vol] 17 U/L 1060 [facility] Serum or plasma albumin/glob ulin mass ratioOrdered By: Saad Mcclain on 05-25-2022 Albumin/Globulin [Mass ratio] 1.4 {ratio} [facility] Serum or plasma alkaline elbert sphatase measurement (enzymatic activity/volume)Ordered By: Saad Mcclain on 05-25-2022 ALP [Catalytic activity/Vol] 69 U/L 32-92 [facility] Serum or plasma anion gap de terminationOrdered By: Saad Mcclain on 05-25-2022 Anion gap [Moles/Vol] 13.5 mmol/L 6.0-15.0 [facility] Serum or plasma aspartate am inotransferase measurement (enzymatic activity/volume)Ordered By: Saad Mcclain on 05-25-2022 AST [Catalytic activity/Vol] 21 U/L 10-42 [facility] Serum or plasma calcium brandin urement (mass/volume)Ordered By: Saad Mcclain on 05-25-2022 Calcium [Mass/Vol] 9.5 mg/dL 8.2-10.2 [facility] Serum or plasma chloride anthony surement (moles/volume)Ordered By: Saad Mcclain on 05-25-2022 Chloride [Moles/Vol] 103 mmol/L 95-114 [facility] Serum or plasma glucose brandin urement (mass/volume)Ordered By: Saad Mcclain on 05-25-2022 Glucose [Mass/Vol] 79 mg/dL 70-100 [facility] Comment on above: ADA recommended refe rence rangeRandom Glucose Reference Range is dependent on time and content of last meal. Glucose of more than 200 mg/dL in a nonstressed, ambulatory subject supports the diagnosis of Diabetes Mellitus. Serum or plasma high density lipoprotein (HDL) cholesterol measurementOrdered By: Saad Mcclain on 05-25-2022 Cholesterol in HDL [Mass/Vol] 51 mg/dL 35-85 [facility] Comment on above: HDL CHOL ATP-III CLA SSIFICATION Cardiovascular RiskHDL > or equal to 60 mg/dL LOWHDL < 40 mg/dL HIGH Serum or plasma potassium me asurement (moles/volume)Ordered By: Saad Mcclain on 05-25-2022 Potassium [Moles/Vol] 4.0 mmol/L 3.5-5.1 [facility] Serum or plasma sodium measu rement (moles/volume)Ordered By: Saad Mcclain on 05-25-2022 Sodium [Moles/Vol] 137 mmol/L 136-146 [facility] Serum or plasma total biliru bin measurement (mass/volume)Ordered By: Saad Mcclain on 05-25-2022 Bilirubin [Mass/Vol] 0.8 mg/dL 0.3-1.2 [facility] Serum or plasma total carbon dioxide measurement (moles/volume)Ordered By: Saad Mcclain on 05-25-2022 CO2 [Moles/Vol] 24.5 mmol/L 22.0-30.0 [facility] Serum or plasma total choles terol/high density lipoprotein (HDL) cholesterol mass ratOrdered By: Saad Mcclain on 05-25-2022 Cholesterol.total/Cho lesterol in HDL [Mass ratio] 4.2 {ratio} <5.0 [facility] Serum or plasma urea nitroge n measurement (mass/volume)Ordered By: Saad Mcclain on 05-25-2022 Urea nitrogen [Mass/Vol] 9 mg/dL 9- [facility] Triglyceride [Mass/volume] i n Serum or PlasmaOrdered By: Saad Mcclain on 05-25-2022 Triglyceride [Mass/Vol] 163 mg/dL 35-149 [facility] Comment on above: TRIG ATP III CLASSIF ICATIONTRIG less than 150 mg/dL NormalTRIG 150-199 mg/dL Borderline highTRIG 200-500 mg/dL High TRIG greater than 500 mg/dL Very highStandard traceable to the Center for Disease Conrtrol and Prevention (CDC) test method. XR RADIUS ULNA RIGHT (2 VIEW S)on 03-19-2022 XR RADIUS ULNA RIGHT (2 VIEWS) EXAMINATION: XR RADIUS ULNA RIGHT (2 VIEWS) HISTORY: Pain after a fall COMPARISON: None available. TECHNIQUE: AP and lateral views of the radius and ulna. FINDINGS: No acute fracture. Chronic ossific density along the tip of the ulnar styloid process. Soft tissues appear within normal limits. IMPRESSION: No acute osseous abnormality. Interpreted by: Flavio Phipps DO Signed by: Flavio Phipps DO 03/20/22 Final result Normal [facility] CBC With Platelet and Differ entialon 08-12-2020 Basophils (Bld) [#/Vol] 0.0 10*3/uL Normal 0.0-0.2 [facility] Comment on above: Performed By: #### C BCWD #### [facility] [address] [place] [address] Basophils/100 WBC (Bld) 0.5 % Normal [facility] Comment on above: Performed By: #### C BCWD #### [facility] [address] [place] [address] Eosinophils (Bld) [#/Vol] 0.2 10*3/uL Normal 0.0-0.7 [facility] Comment on above: Performed By: #### C BCWD #### [facility] [address] [place] [address] Eosinophils/100 WBC (Bld) 2.1 % Normal [facility] Comment on above: Performed By: #### C BCWD #### [facility] [address] [place] [address] Erythrocyte distribution width (RBC) [Ratio] 14.3 % Normal 11.5-14.5 [facility] Comment on above: Performed By: #### C BCWD #### [facility] [address] [place] [address] Hematocrit (Bld) [Volume fraction] 41.5 % Normal 37.0-47.0 [facility] Comment on above: Performed By: #### C BCWD #### [facility] [address] [place] [address] Hemoglobin (Bld) [Mass/Vol] 13.8 g/dL Normal 12.0-16.0 [facility] Comment on above: Performed By: #### C BCWD #### [facility] [address] [place] [address] Lymphocytes (Bld) [#/Vol] 2.0 10*3/uL Normal 1.0-4.8 [facility] Comment on above: Performed By: #### C BCWD #### [facility] [address] [place] [address] Lymphocytes/100 WBC (Bld) 24.9 % Normal [facility] Comment on above: Performed By: #### C BCWD #### [facility] [address] [place] [address] MCH (RBC) [Entitic mass] 29.9 pg Normal 27.0-31.3 [facility] Comment on above: Performed By: #### C BCWD #### [facility] [address] [place] [address] MCHC (RBC) [Mass/Vol] 33.2 % Normal 33.0-37.0 [facility] Comment on above: Performed By: #### C BCWD #### [facility] [address] [place] [address] MCV (RBC) [Entitic vol] 90.2 fL Normal 82.0-100.0 [facility] Comment on above: Performed By: #### C BCWD #### [facility] [address] [place] [address] Monocytes (Bld) [#/Vol] 0.4 10*3/uL Normal 0.2-0.8 [facility] Comment on above: Performed By: #### C BCWD #### [facility] [address] [place] [address] Monocytes/100 WBC (Bld) 4.5 % Normal [facility] Comment on above: Performed By: #### C BCWD #### [facility] [address] [place] [address] Neutrophils (Bld) [#/Vol] 5.5 10*3/uL Normal 1.4-6.5 [facility] Comment on above: Performed By: #### C BCWD #### [facility] [address] [place] [address] Neutrophils/100 WBC (Bld) 68.0 % Normal [facility] Comment on above: Performed By: #### C BCWD #### [facility] [address] [place] [address] Platelets (Bld) [#/Vol] 292 10*3/uL Normal 130-400 [facility] Comment on above: Performed By: #### C BCWD #### [facility] [address] [place] [address] RBC (Bld) [#/Vol] 4.60 10*6/uL Normal 4.20-5.40 [facility] Comment on above: Performed By: #### C BCWD #### [facility] [address] [place] [address] WBC (Bld) [#/Vol] 8.1 10*3/uL Normal 4.8-10.8 [facility] Comment on above: Performed By: #### C BCWD #### [facility] [address] [place] [address] Comprehensive Metabolic Pane [place] 08-12-2020 Albumin [Mass/Vol] 4.8 g/dL Critically high 3.5-4.6 [facility] Comment on above: Performed By: #### C MP #### [facility] [address] [place] [address] ALP [Catalytic activity/Vol] 87 U/L Normal 40-130 [facility] Comment on above: Performed By: #### C MP #### [facility] [address] [place] [address] ALT [Catalytic activity/Vol] 8 U/L Normal 0-33 [facility] Comment on above: Performed By: #### C MP #### [facility] [address] [place] [address] Anion gap [Moles/Vol] 11 mmol/L Normal 9-15 [facility] Comment on above: Performed By: #### C MP #### [facility] [address] [place] [address] AST [Catalytic activity/Vol] 20 U/L Normal 0-35 [facility] Comment on above: Performed By: #### C MP #### [facility] [address] [place] [address] Bilirubin [Mass/Vol] 0.5 mg/dL Normal 0.2-0.7 [facility] Comment on above: Performed By: #### C MP #### [facility] [address] [place] [address] Calcium [Mass/Vol] 9.4 mg/dL Normal 8.5-9.9 [facility] Comment on above: Performed By: #### C MP #### [facility] [address] [place] [address] Chloride [Moles/Vol] 103 mmol/L Normal 95-107 [facility] Comment on above: Performed By: #### C MP #### [facility] [address] [place] [address] CO2 [Moles/Vol] 23 mmol/L Normal 20-31 [facility] Comment on above: Performed By: #### C MP #### [facility] [address] [place] [address] Creatinine [Mass/Vol] 0.60 mg/dL Normal 0.50-0.90 [facility] Comment on above: Performed By: #### C MP #### [facility] [address] [place] [address] GFR/1.73 sq M predicted among blacks MDRD (S/P/Bld) [Vol rate/Area] mL/min/{1.73_m2} Normal >60 [facility] Comment on above: Result Comment: >60 mL/min/1.73m2 EGFR, calc. for ages 18 and older using the MDRD formula (not corrected for weight), is valid for stable renal function. Performed By: #### C MP #### [facility] [address] [place] [address] GFR/1.73 sq M.predicted MDRD (S/P/Bld) [Vol rate/Area] mL/min/{1.73_m2} Normal >60 [facility] Comment on above: Result Comment: >60 mL/min/1.73m2 EGFR, calc. for ages 18 and older using the MDRD formula (not corrected for weight), is valid for stable renal function. Performed By: #### C MP #### [facility] [address] [place] [address] Globulin (S) [Mass/Vol] 2.4 g/dL Normal 2.3-3.5 [facility] Comment on above: Performed By: #### C MP #### [facility] [address] [place] [address] Glucose [Mass/Vol] 89 mg/dL Normal 70-99 [facility] Comment on above: Performed By: #### C MP #### [facility] [address] [place] [address] Potassium [Moles/Vol] 4.4 mmol/L Normal 3.4-4.9 [facility] Comment on above: Performed By: #### C MP #### [facility] [address] [place] [address] Protein [Mass/Vol] 7.2 g/dL Normal 6.3-8.0 [facility] Comment on above: Performed By: #### C MP #### [facility] [address] [place] [address] Sodium [Moles/Vol] 137 mmol/L Normal 135-144 [facility] Comment on above: Performed By: #### C MP #### [facility] [address] [place] [address] Urea nitrogen [Mass/Vol] 7 mg/dL Normal 6-20 [facility] Comment on above: Performed By: #### C MP #### [facility] [address] [place] [address] Lipid Panelon 08-12-2020 Cholesterol [Mass/Vol] 198 mg/dL Normal 0-199 [facility] Comment on above: Result Comment: ATP III Cholesterol classification is Desirable. Performed By: #### L IPID #### [facility] [address] [place] [address] Cholesterol in HDL [Mass/Vol] 43 mg/dL Normal 40-59 [facility] Comment on above: Result Comment: ATP III HDL Cholesterol Classification is Desirable. Expected Values: Males: >55 = No Risk 35-55 = Moderate Risk <35 = High Risk Females: >65 = No Risk 45-65 = Moderate Risk <45 = High Risk NCEP Guidelines: Third Report December 2000 >59 = negative risk factor for CHD <40 = major risk factor for CHD Performed By: #### L IPID #### [facility] [address] [place] [address] Cholesterol in LDL [Mass/Vol] 117 mg/dL Normal 0-129 [facility] Comment on above: Result Comment: ATP III LDL Classification is Near Optimal. Performed By: #### L IPID #### [facility] [address] [place] [address] Triglyceride [Mass/Vol] 191 mg/dL Critically high 0-150 [facility] Comment on above: Result Comment: ATP III Triglycerides Classification is Borderline High. Performed By: #### L IPID #### [facility] [address] [place] [address] MRI LUMBAR SPINE WO IVCONon 11-22-2018 MRI LUMBAR SPINE WO IVCON * * *Final Report* * * DATE OF EXAM: Nov 22 2018 4:18PM [facility]NM 0303 - MRI LUMBAR SPINE WO IVCON / PROCEDURE REASON: multiple diagnoses * * * * Physician Interpretation * * * * EXAMINATION: MRI LUMBAR SPINE WO IVCON CLINICAL HISTORY: Chronic low back pain without sciatica. TECHNIQUE: Routine lumbosacral spine MR protocol without gadolinium. MQ: [id number] COMPARISON: None. RESULT: Counting reference: Lumbosacral junction. For the purposes of this report, L4-5 is considered the level of the iliac crest and there are 5 lumbar-type vertebrae. Anatomic variant: Transitional L5 vertebral body. Alignment: There is a levoscoliosis of lumbar spine with apex at L2. No segmentation anomalies are identified. Bone marrow signal/fracture: No evidence of pathologic marrow infiltration. No evidence of prior fracture. Conus: The conus is within normal limits of signal intensity and morphology. Conus terminates at L1. Nerve roots are normal in appearance. Paraspinal soft tissues: Paraspinal soft tissues are within normal limits. Lower thoracic spine: Visualized lower thoracic canal and foramina are patent. T12-L1: Canal and foramina are patent. L1-L2: Canal and foramina are patent. L2-L3: Canal and foramina are patent L3-L4: Canal and foramina are patent L4-L5: Canal and foramina are patent. Facet hypertrophy bilaterally. L5-S1: Canal and foramina are patent Sacrum and iliac wings: The visualized sacrum and iliac wings are within normal limits. IMPRESSION: Mild degenerative facet disease in lower lumbar spine. No focal protrusion or extrusion. Anatomic Thoracic/Lumbar Variant: Transitional L5 vertebral body. L4-5 is considered the level of the iliac crest and there are 5 lumbar-type vertebrae. Material Coordinator: PSCBeck Transcribe Date/Time: Nov 22 2018 4:20P Dictated by : DELORIS RAM MD This examination was interpreted and the report reviewed and electronically signed by: DELORIS RAM MD on Nov 22 2018 4:35PM EST [id number] Normal [facility] PROGRESSon 11-22-2018 PROGRESS HNO ID: [id number] Author: Jose Armando Perdue [employer] Service: ? Author Type: ? Type: Progress Notes Filed: 11/22/2018 4:19 PM Note Text: Radiology Service Progress Note PATIENT NAME: Jayla Perla DATE OF SERVICE: November 22, 2018 TIME: 3:49 PM PATIENT IDENTITY VERIFICATION COMPLETED USING TWO (2) METHODS: Patient confirmed name verbally. PATIENT GENDER DATA: Female. status: : No status: NO. PATIENT RELEVANT IMPLANT DATA REVIEWED: Yes RADIOLOGY DEPARTMENT: MR; Exam(s) Completed: Spine: Lumbar spine PERIPHERAL IV DATA: Not applicable SIGNED BY: Jose Armando Perdue [employer] November 22, 2018 3:49 PM Normal [facility] CNOVon 11-08-2018 CNOV Office Visit (PAINLN ) JAYLA PERLA ([id number]) 1985 F Date Time Provider Department 11/08/18 3:15 PM SURAJ DANIELSON During your visit today, we recorded the following information about you: Pulse Blood pressure Weight Height 101/minute 119/76 82.4 kg 1.626 m Suraj Danielson MD 11/25/2018 2:15 PM Signed SUBJECTIVE: Ms. Perla a 33 year old female referred by Dr. Dodson presents with the complaint of low back and rt hip/leg pain. Patient reports the date of onset of symptoms as 6 months ago and describes the location of the pain as low back, rt hip that radiates down rt leg.. The pain is chronic, Back is sore, rt hip is stabbing and numbness that shoots down her leg, and rated as back is a 1 or 2, hip is 7/10 on a scale of 1-10, with radiation. PAIN RATIO: (back:leg): rt hip Patient reports that LBP is increased by walking and relieved by heat/ice. Ambulation distance (before needing to sit): hard to say has to push through pain at work Standing time (before needing to sit): has to push through pain at work OTHER BACK PAIN SYMPTOMS: NIGHT PAIN: yes PARESTHESIA: down the right leg POOR SLEEP: yes BOWEL/BLADDER INCONTINENCE OR RETENTION: No ACTIVITY LIMITATIONS: pushes through it PREVIOUS TREATMENTS LASTING SIX WEEKS IN THE LAST SIX MONTHS Active conservative therapy lasting 6 weeks in the last six months (see below) 1. Physical therapy: No 2. Home exercise program after PT: yes 3. Occupational therapy: No 4. A physician supervised home exercise program (HEP): No 5. Guest Services Officer: No Passive conservative therapy lasting 6 weeks in the last six months (see below) 1. Medical devises: No 2. Acupuncture: No 3. Tens unit: has used in the past and this did help 4. Prescription pain medication: Yes - flexeril 5. NSAIDS: aleve prn OCCUPATIONAL HISTORY: HISTORY OF TRAUMA/OVERUSE OF AREA: No REVIEW OF SYSTEMS: GENERAL: fatigue HEENT: Negative for frequent or significant headaches NECK: Negative for lumps, goiter, pain and significant neck swelling RESPIRATORY: Negative for cough, hemoptysis, wheezing, COPD, dyspnea or shortness of breath CARDIOVASCULAR: Negative for chest pain, leg swelling, hypertension, CHF or palpitations GI: No nausea, vomiting, or diarrhea and No heartburn or reflux symptoms : No history of dysuria, frequency or incontinence, No difficulty urinating, nocturia > 1 time per night or hematuria 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 LMP: 10/03/18. MUSCULOSKELETAL: low back, rt hip SKIN: Negative for lesions, rash, and itching PSYCH: anxiety, sleep disturbance HEMATOLOGY/LYMPHOLOGY Positive for bruises easily ENDOCRINE: Negative for cold or heat intolerance, polyuria, polydipsia and goiter PAST MEDICAL HISTORY Diagnosis Date - LGSIL on Pap smear of cervix 09/2016 colpo 03/2017 ascus only, neg hpv - Nipple discharge 07/2015 right - Obesity (BMI 30-39.9) 09/16/2015 - Papanicolaou smear of cervix with low grade squamous intraepithelial lesion (LGSIL) 07/09/2015 Did not follow up with colposcopy - Right hip pain - Smoker 09/16/2015 - Urolithiasis PAST MEDICAL HISTORY Diagnosis Date - LGSIL on Pap smear of cervix 09/2016 colpo 03/2017 ascus only, neg hpv - Nipple discharge 07/2015 right - Obesity (BMI 30-39.9) 09/16/2015 - Papanicolaou smear of cervix with low grade squamous intraepithelial lesion (LGSIL) 07/09/2015 Did not follow up with colposcopy - Right hip pain - Smoker 09/16/2015 - Urolithiasis PAST SURGICAL HISTORY Procedure Laterality Date - COLONOSCOPY - EGD - HIP SURGERY HX 09/2015 - PAST SURGICAL HISTORY OF 07/28/2015 left breast ductotomy EXAMINATION: [id number]: Scoliosis: No Pelvic Tilt: No Leg Length discrepancy: Equal LATERAL: Cervical Lordosis: No Thoracic Kyphosis: No Lumbar Lordosis: No RANGE OF MOTION CERVICAL: Flexion: Not Limited Extension: Not Limited Rotation L: Not Limited Rotation R: Not Limited Side Bending R: Not Limited Side Bending L: Not Limited LUMBAR: Flexion: Not Limited Extension: Not Limited Rotation L: Not Limited Rotation R: Not Limited Side Bending R: Not Limited Side Bending L: Not Limited FINGER TO FLOOR DISTANCE: Knee Gait: Normal Toe Walking: Normal Heel Walking: Normal REFLEXES R L Biceps (C6): 1-2+ 1-2+ Triceps (C7): 1-2+ 1-2+ Brachioradiolis (C6): 1-2+ 1-2+ Ankle (S1): 2+ 2+ Knee (L4): 2+ 2+ STRENGTH (0-5): R L Deltoid (AB:C5,6): 5 5 Biceps (Flex:C5,6): 5 5 Wrist Ext.(C6,7): 5 5 Interrosei (C8,T1): 5 5 PSOAS (L2,3): 5 5 Gluteus (L5,S1,2): 5 5 Quadriceps (L3,4): 5 5 EHL (L5): 5 5 Soleus (S1): 5 5 SLR: Seated - Right Negative, Left Negative Babinski Negative Negative HIP: ROM is WNL with pain in flexion, extension and internal rotation. FABERES: Negative ENOCH TEST 1) Tenderness: Appropriate 2) Simulation/Axial Loading/ROT: Appropriate 3) Distraction: Seated SLR: Appropriate 4) Reqional Disturbances: Appropriate 5) Overreaction: Appropriate PHYSICAL EXAMINATION: GENERAL APPEARANCE: Well appearing, in no acute distress SKIN: Skin color, texture, turgor normal. No rashes or lesions. HEAD: Normocephalic. No masses, lesions, tenderness or abnormalities EYES: Conjunctivae/corneas clear. Pupils are equally round and reactive to light. Extraocular movements are intact. NECK: Neck supple, no adenopathy; thyroid symmetric, normal size, no bruits. LUNGS: Lungs clear to auscultation, No wheezing or rhonchi HEART: negative. RRR without murmur, gallop, or rubs. No ectopy. ABDOMEN: Abdomen soft, non-tender. Bowel sounds normal. No masses, organomegaly EXTREMITIES: Extremities normal. No deformities, edema, or skin discoloration. Good capillary refill. PULSES: Normal lower extremity pulses. NEURO: Gait normal. Reflexes normal and symmetric. Sensation grossly intact. IMPRESSION: This is a 33 year old female with history of chronic right hip and low back pain. She reports she started to have this pain approximately 8 years ago. She reports initially she would have some intermittent right groin. She reports this would occur with external/internal rotation of her hip. She reports feeling a popping sensation would this would occur. She initially as seen by Orthopedics and was found to have labrum tear. She is s/p Right hip arthroscopy with Dr. Clay 09/21/2015. She reports following this surgery she reports she did not have any relief of her pain. She has tried PT with no relief of her pain. She got an MRI of hip that showed a labrum tear. She does report having some low back pain (band like across her low back) . She reports having associated numbness and tingling (entire leg to the foot - constant) that started 6 months ago. She reports this numbness and tingling is constant. She reports changing position does not worsen or improve this numbness. She reports her low back pain is the same despite position. She has tried PT, flexeril, alleve with no relief of her pain. PLAN: Discussed the above findings and potential options with the patient. MRI of lumbar spine Return to office after the above. Suraj Danielson MD addendum: MRI appears to show no lumbar structural pathology that would be obviously concordant with her Rt LE pain pattern. Has facet OA L 4-5 - may explain some axial LBP with some degree of radiation into LE. Will see her in [facility] - option for LE EMG after reviewing symptoms with her at that time. Suraj Danielson MD Referring Provider: CHUYITA CLAY [[id number]] Allergies As of Date: 11/08/2018 Noted Allergy Reaction AVOCADO 07/27/2015 16 - Unknown VICODIN (HYDROCODONE-ACETAMINOPHE* 2 - Rash Date Reviewed: 11/08/2018 Reviewed by: Deb Hsu Ma - Fully Assessed Reason for Visit: Low Back Pain [126] rt hip pain [Other] Visit Diagnosis:Chronic bilateral low back pain without sciatica [M54.5, G89.29] Order(s):MRI LUMBAR SPINE WO IVCON [[id number]] Order #: [id number] FUTURE Prescriptions as of 11/08/2018 Sig: FLEXERIL ORAL Take 10 mg by mouth as needed. Problem List As Of Date 11/08/2018 Noted Resolved Migraine without aura, without mention of intra*INVALID FOR*09/16/2015 Headache(784.0) [R51] INVALID FOR*09/16/2015 Epistaxis [R04.0] INVALID FOR*07/27/2015 Migraine [346] INVALID FOR*09/16/2015 POLYCYSTIC OVARIES [E28.2] INVALID FOR* HYPERLIPIDEMIA NEC/NOS [E78.5] INVALID FOR* Calculus of ureter [N20.1] INVALID FOR*07/27/2015 Nipple discharge [N64.52] INVALID FOR*08/12/2015 More... Obesity (BMI 30-39.9) [E66.9] INVALID FOR* Smoker [F17.200] INVALID FOR* Acetabular labrum tear [S73.199A] INVALID FOR* Status post arthroscopy of hip [Z98.890] INVALID FOR* Papanicolaou smear of cervix with low grade squ*INVALID FOR* More... Status post colposcopy [Z98.890] INVALID FOR* More... Right hip pain [M25.551] LGSIL on Pap smear of cervix [R87.612] INVALID FOR* More... Encounter Status:Closed by SURAJ DANIELSON MD on 11/25/18 [facility] PROGRESSon 11-08-2018 PROGRESS HNO ID: [id number] Author: Suraj Danielson Service: ? Author Type: Physician Type: Progress Notes Filed: 11/25/2018 2:15 PM Note Text: SUBJECTIVE: Ms. Perla a 33 year old female referred by Dr. Dodson presents with the complaint of low back and rt hip/leg pain. Patient reports the date of onset of symptoms as 6 months ago and describes the location of the pain as low back, rt hip that radiates down rt leg.. The pain is chronic, Back is sore, rt hip is stabbing and numbness that shoots down her leg, and rated as back is a 1 or 2, hip is 7/10 on a scale of 1-10, with radiation. PAIN RATIO: (back:leg): rt hip Patient reports that LBP is increased by walking and relieved by heat/ice. Ambulation distance (before needing to sit): hard to say has to push through pain at work Standing time (before needing to sit): has to push through pain at work OTHER BACK PAIN SYMPTOMS: NIGHT PAIN: yes PARESTHESIA: down the right leg POOR SLEEP: yes BOWEL/BLADDER INCONTINENCE OR RETENTION: No ACTIVITY LIMITATIONS: pushes through it PREVIOUS TREATMENTS LASTING SIX WEEKS IN THE LAST SIX MONTHS Active conservative therapy lasting 6 weeks in the last six months (see below) 1. Physical therapy: No 2. Home exercise program after PT: yes 3. Occupational therapy: No 4. A physician supervised home exercise program (HEP): No 5. Guest Services Officer: No Passive conservative therapy lasting 6 weeks in the last six months (see below) 1. Medical devises: No 2. Acupuncture: No 3. Tens unit: has used in the past and this did help 4. Prescription pain medication: Yes - flexeril 5. NSAIDS: aleve prn OCCUPATIONAL HISTORY: HISTORY OF TRAUMA/OVERUSE OF AREA: No REVIEW OF SYSTEMS: GENERAL: fatigue HEENT: Negative for frequent or significant headaches NECK: Negative for lumps, goiter, pain and significant neck swelling RESPIRATORY: Negative for cough, hemoptysis, wheezing, COPD, dyspnea or shortness of breath CARDIOVASCULAR: Negative for chest pain, leg swelling, hypertension, CHF or palpitations GI: No nausea, vomiting, or diarrhea and No heartburn or reflux symptoms : No history of dysuria, frequency or incontinence, No difficulty urinating, nocturia > 1 time per night or hematuria 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 LMP: 10/03/18. MUSCULOSKELETAL: low back, rt hip SKIN: Negative for lesions, rash, and itching PSYCH: anxiety, sleep disturbance HEMATOLOGY/LYMPHOLOGY Positive for bruises easily ENDOCRINE: Negative for cold or heat intolerance, polyuria, polydipsia and goiter PAST MEDICAL HISTORY Diagnosis Date - LGSIL on Pap smear of cervix 09/2016 colpo 03/2017 ascus only, neg hpv - Nipple discharge 07/2015 right - Obesity (BMI 30-39.9) 09/16/2015 - Papanicolaou smear of cervix with low grade squamous intraepithelial lesion (LGSIL) 07/09/2015 Did not follow up with colposcopy - Right hip pain - Smoker 09/16/2015 - Urolithiasis PAST MEDICAL HISTORY Diagnosis Date - LGSIL on Pap smear of cervix 09/2016 colpo 03/2017 ascus only, neg hpv - Nipple discharge 07/2015 right - Obesity (BMI 30-39.9) 09/16/2015 - Papanicolaou smear of cervix with low grade squamous intraepithelial lesion (LGSIL) 07/09/2015 Did not follow up with colposcopy - Right hip pain - Smoker 09/16/2015 - Urolithiasis PAST SURGICAL HISTORY Procedure Laterality Date - COLONOSCOPY - EGD - HIP SURGERY HX 09/2015 - PAST SURGICAL HISTORY OF 07/28/2015 left breast ductotomy EXAMINATION: [id number]: Scoliosis: No Pelvic Tilt: No Leg Length discrepancy: Equal LATERAL: Cervical Lordosis: No Thoracic Kyphosis: No Lumbar Lordosis: No RANGE OF MOTION CERVICAL: Flexion: Not Limited Extension: Not Limited Rotation L: Not Limited Rotation R: Not Limited Side Bending R: Not Limited Side Bending L: Not Limited LUMBAR: Flexion: Not Limited Extension: Not Limited Rotation L: Not Limited Rotation R: Not Limited Side Bending R: Not Limited Side Bending L: Not Limited FINGER TO FLOOR DISTANCE: Knee Gait: Normal Toe Walking: Normal Heel Walking: Normal REFLEXES R L Biceps (C6): 1-2+ 1-2+ Triceps (C7): 1-2+ 1-2+ Brachioradiolis (C6): 1-2+ 1-2+ Ankle (S1): 2+ 2+ Knee (L4): 2+ 2+ STRENGTH (0-5): R L Deltoid (AB:C5,6): 5 5 Biceps (Flex:C5,6): 5 5 Wrist Ext.(C6,7): 5 5 Interrosei (C8,T1): 5 5 PSOAS (L2,3): 5 5 Gluteus (L5,S1,2): 5 5 Quadriceps (L3,4): 5 5 EHL (L5): 5 5 Soleus (S1): 5 5 SLR: Seated - Right Negative, Left Negative Babinski Negative Negative HIP: ROM is WNL with pain in flexion, extension and internal rotation. FABERES: Negative ENOCH TEST 1) Tenderness: Appropriate 2) Simulation/Axial Loading/ROT: Appropriate 3) Distraction: Seated SLR: Appropriate 4) Reqional Disturbances: Appropriate 5) Overreaction: Appropriate PHYSICAL EXAMINATION: GENERAL APPEARANCE: Well appearing, in no acute distress SKIN: Skin color, texture, turgor normal. No rashes or lesions. HEAD: Normocephalic. No masses, lesions, tenderness or abnormalities EYES: Conjunctivae/corneas clear. Pupils are equally round and reactive to light. Extraocular movements are intact. NECK: Neck supple, no adenopathy; thyroid symmetric, normal size, no bruits. LUNGS: Lungs clear to auscultation, No wheezing or rhonchi HEART: negative. RRR without murmur, gallop, or rubs. No ectopy. ABDOMEN: Abdomen soft, non-tender. Bowel sounds normal. No masses, organomegaly EXTREMITIES: Extremities normal. No deformities, edema, or skin discoloration. Good capillary refill. PULSES: Normal lower extremity pulses. NEURO: Gait normal. Reflexes normal and symmetric. Sensation grossly intact. IMPRESSION: This is a 33 year old female with history of chronic right hip and low back pain. She reports she started to have this pain approximately 8 years ago. She reports initially she would have some intermittent right groin. She reports this would occur with external/internal rotation of her hip. She reports feeling a popping sensation would this would occur. She initially as seen by Orthopedics and was found to have labrum tear. She is s/p Right hip arthroscopy with Dr. Clay 09/21/2015. She reports following this surgery she reports she did not have any relief of her pain. She has tried PT with no relief of her pain. She got an MRI of hip that showed a labrum tear. She does report having some low back pain (band like across her low back) . She reports having associated numbness and tingling (entire leg to the foot - constant) that started 6 months ago. She reports this numbness and tingling is constant. She reports changing position does not worsen or improve this numbness. She reports her low back pain is the same despite position. She has tried PT, flexeril, alleve with no relief of her pain. PLAN: Discussed the above findings and potential options with the patient. MRI of lumbar spine Return to office after the above. Suraj Danielson MD addendum: MRI appears to show no lumbar structural pathology that would be obviously concordant with her Rt LE pain pattern. Has facet OA L 4-5 - may explain some axial LBP with some degree of radiation into LE. Will see her in [facility] - option for LE EMG after reviewing symptoms with her at that time. Suraj Danielson MD [facility] PROGRESS HNO ID: [id number] Author: Lis Morales (Rt) Hasmukh Service: ? Author Type: Federal Air Marshal Type: Progress Notes Filed: 11/08/2018 3:33 PM Note Text: Radiology Service Progress Note PATIENT NAME: Jayla Perla DATE OF SERVICE: November 08, 2018 TIME: 3:32 PM PATIENT IDENTITY VERIFICATION COMPLETED USING TWO (2) METHODS: Patient confirmed name verbally and Date of . PATIENT GENDER DATA: Female. status: : No status: NO. PATIENT RELEVANT IMPLANT DATA REVIEWED: Not Applicable RADIOLOGY DEPARTMENT: General X-ray: Exam(s) Completed: Spine X-Ray(s): Lumbar AP / LAT / L5-S1 PERIPHERAL IV DATA: Not applicable SIGNED BY: RT Andrew November 08, 2018 3:32 PM [facility] XR LUMBAR 2V AP/LATon 2018 XR LUMBAR 2V AP/LAT * * *Final Report* * * DATE OF EXAM: Nov 08 2018 3:34PM [id number] [id number] - XR LUMBAR 2V AP/LAT / PROCEDURE REASON: Back pain, unspecified back location, unspecified back pain laterality, unspecif * * * * Physician Interpretation * * * * XR LUMBAR 2V AP/LAT CLINICAL INDICATION: Back pain, unspecified back location, unspecified back pain laterality, unspecified chronicity COMPARISON: None. RESULT: L5 is a transitional vertebra. There is narrowing of the L5-S1 disc space. Vertebral body height and alignment is maintained. No spondylolisthesis. Levoscoliosis centered at the L2-3 level. IMPRESSION: Transitional L5 vertebral body. Levoscoliosis. Material Coordinator: PSCB Transcribe Date/Time: Nov 08 2018 3:42P Dictated by : KUMAR CHAN MD This examination was interpreted and the report reviewed and electronically signed by: KUMAR CHAN MD on Nov 08 2018 3:44PM EST [id number] [facility] CNOVon 10-30-2018 CNOV Office Visit (SPHTB) JAYLA PERLA ([id number]) 1985 F Date Time Provider Department 10/30/18 10:45 AM CHUYITA CLAY [facility] During your visit today, we recorded the following information about you: Weight Height 80.3 kg 1.626 m Krissy Peace MD 10/30/2018 4:51 PM Signed DEPARTMENT OF ORTHOPAEDICS Consultation as a request of Dr. Mosley. Chief Complaint: Right hip pain HISTORY OF PRESENT ILLNESS: This is a pleasant 33 year old female, who presents today with a chief complaint of right hip pain. She had labral repair by Dr. Clay 3 years ago and had continued pain after the surgery. She had an intra-articular injection that took all of her pain away for 24 hours but then it returned. She was mostly pain free until 6 months ago. She notes return of the sharp stabbing pain in her hip joint. She also notes that the entire right leg will go numb. She states this is almost constant. She notes the numbness is interferring with her work. Injury/ Trauma: Denies PAIN EVALUATION 10/30/2018 Pain Level: 6 Pain Location: ? right hip right hip Description: Aching;Sharp;Stabbing Duration Amount of Time: ? 6 months 6 months Frequency: Continuous Intervention: Medication;Reposition;Exerci se;Cold;Relaxation Pain location: anterior Duration of pain/ symptoms: 6 months Frequency: intermittent Intensity: moderate Quality: sharp, aching and shooting She Denies nocturnal pain. She reports numbness or tingling of the entire extremity She denies popping, clicking, catching, locking, grinding, instability, buckling, or giving way. 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: PAST MEDICAL HISTORY Diagnosis Date - LGSIL on Pap smear of cervix 09/2016 colpo 03/2017 ascus only, neg hpv - Nipple discharge 07/2015 right - Obesity (BMI 30-39.9) 09/16/2015 - Papanicolaou smear of cervix with low grade squamous intraepithelial lesion (LGSIL) 07/09/2015 Did not follow up with colposcopy - Right hip pain - Smoker 09/16/2015 - Urolithiasis PAST SURGICAL HISTORY Procedure Laterality Date - COLONOSCOPY - EGD - HIP SURGERY HX 09/2015 - PAST SURGICAL HISTORY OF 07/28/2015 left breast ductotomy Current Outpatient Medications: cyclobenzaprine HCl (FLEXERIL ORAL) Take 10 mg by mouth as needed. Disp: Rfl: No current facility-administered medications for this visit. ALLERGIES Allergen Reactions - Avocado Unknown - Vicodin [Hydrocodon* Rash FAMILY HISTORY Problem Relation Age of Onset - Breast Cancer Paternal Grandmother 40's - Cancer Father mesothelioma - Hypertension Father - Diabetes Mother - Diabetes Paternal Grandfather - Hypertension Sister - Coronary Artery Disease Sister - Ischemic Heart Disease Maternal Grandfather Social History Tobacco Use - Smoking status: Current Every Day Smoker Packs/day: 1.00 Years: 10.00 Pack years: 10.00 Types: Cigarettes Start date: 07/27/2005 - Smokeless tobacco: Never Used - Tobacco comment: 1.0 pack per day Substance Use Topics - Alcohol use: Yes Comment: Once per month if that (rarely) - Drug use: No REVIEW OF SYSTEMS: GENERAL: No weight loss, malaise or fevers HEENT: Negative for frequent or significant headaches, No changes in hearing or vision, no nose bleeds or other nasal problems NECK: Negative for lumps, goiter, pain and significant neck swelling RESPIRATORY: Negative for cough, hemoptysis, wheezing, COPD, dyspnea or shortness of breath CARDIOVASCULAR: Negative for chest pain, leg swelling, hypertension, CHF or palpitations GI: No nausea, vomiting, or diarrhea : No history of dysuria, frequency or incontinence TRANSIT AUTHORITY POLICE OFFICER: Negative for abnormal vaginal bleeding, abnormal vaginal discharge MUSCULOSKELETAL: R hip pain and RLE numbness SKIN: Negative for lesions, rash, and itching HEMATOLOGY/LYMPHOLOGY: Negative for prolonged bleeding, bruising easily or swollen nodes ENDOCRINE: Negative for cold or heat intolerance, polyuria, polydipsia and goiter RADIOGRAPHS: right AP pelvis, AP hip and frog lateral dated within 90 days revealed no acute processes, fractures, or dislocations. There is not a cam lesion. X-Rays Reviewed and discussed. OTHER STUDIES: Not applicable right MRI dated within 30 days revealed increased labral signal medial to prior anchor/repair PHYSICAL EXAM: Ht 5' 4 (1.63m) Wt 177 lb (80.3kg) BMI 30.37 kg/(m2). General: Appears stated age, well built, in no apparent distress. Psychiatric: Mood and affect appropriate. Alert and oriented x 3 without evidence of abnormal respiratory effort. Musculoskeletal Exam: Gait normal, Posture: erect and normal. Exam: Right Left Single Leg Trendelenburg Negative Negative Hip flexion 110 110 IR 60 60 ER 20 20 Anterior impingement positive negative Dynamic labral stress positive negative ANNEMARIE positive negative Posterior Impingement negative negative EVAN negative negative Strength Right Left Supine HF 5/5 5/5 Upright HF 5/5 5/5 Adduction 5/5 5/5 Abduction 5/5 5/5 Tenderness with Palpation: Right Left Greater Troch Negative Negative Gluteus Medius Negative Negative Piriformis Negative Negative Adductor tendons Positive Negative PROCEDURE: Not applicable IMPRESSION: 1. right Hip Labral Tear. 2. RLE numbness PLAN: 1. Medication: None. 2. Test(s)/Imaging/Referral(s): Spine referral. 3. Intervention: Diagnostic hip injection. She will keep ap ain diary after the injection 4. Follow-up: Following above. Krissy Peace MD Sports Medicine/Orthopaedic Surgery Chuyita Clay MD 10/30/2018 4:51 PM Signed I have reviewed the history and physical obtained by my resident or fellow. HPI explored in detail with the patient. Pt was seen by me and killian findings were confirmed. I agree with the findings as documented. I personally participated the patient's assessment and treatment recommendations. Chuyita Clay MD Referring Provider: SELF [[id number]] Allergies As of Date: 10/30/2018 Noted Allergy Reaction AVOCADO 07/27/2015 16 - Unknown VICODIN (HYDROCODONE-ACETAMINOPHE* 2 - Rash Date Reviewed: 10/30/2018 Reviewed by: Chuyita Clay - Fully Assessed Reason for Visit: Pain [78] Cmt: right hip consult Primary Visit Diagnosis:Pain in right hip [M25.551] Other Visit Diagnosis:Radiculopathy, lumbar region [M54.16] Order(s):IMAGING GUIDED ASP/INJ HIP JT/BURSA RT [[id number]] Order #: [id number] F[facility]URE CONSULT TO [facility] [[id number]] Order #: [id number]: 1 Prescriptions as of 10/30/2018 Sig: FLEXERIL ORAL Take 10 mg by mouth as needed. Problem List As Of Date 10/30/2018 Noted Resolved Migraine without aura, without mention of intra*INVALID FOR*09/16/2015 Headache(784.0) [R51] INVALID FOR*09/16/2015 Epistaxis [R04.0] INVALID FOR*07/27/2015 Migraine [346] INVALID FOR*09/16/2015 POLYCYSTIC OVARIES [E28.2] INVALID FOR* HYPERLIPIDEMIA NEC/NOS [E78.5] INVALID FOR* Calculus of ureter [N20.1] INVALID FOR*07/27/2015 Nipple discharge [N64.52] INVALID FOR*08/12/2015 More... Obesity (BMI 30-39.9) [E66.9] INVALID FOR* Smoker [F17.200] INVALID FOR* Acetabular labrum tear [S73.199A] INVALID FOR* Status post arthroscopy of hip [Z98.890] INVALID FOR* Papanicolaou smear of cervix with low grade squ*INVALID FOR* More... Status post colposcopy [Z98.890] INVALID FOR* More... Right hip pain [M25.551] LGSIL on Pap smear of cervix [R87.612] INVALID FOR* More... Disposition: Return for patient to contact office 2 weeks after injection. Follow-up and Disposition History Recorded Encounter Status:Closed by CHUYITA CLAY MD on 10/30/18 [facility] PROGRESSon 10-30-2018 PROGRESS HNO ID: [id number] Author: Chuyita Clay Service: ? Author Type: Physician Type: Progress Notes Filed: 10/30/2018 4:51 PM Note Text: I have reviewed the history and physical obtained by my resident or fellow. HPI explored in detail with the patient. Pt was seen by me and killian findings were confirmed. I agree with the findings as documented. I personally participated the patient's assessment and treatment recommendations. Chuyita Clay MD [facility] PROGRESS HNO ID: [id number] Author: Lis Hickey (Rt) Service: ? Author Type: Federal Air Marshal Type: Progress Notes Filed: 10/30/2018 3:16 PM Note Text: Radiology Service Progress Note PATIENT NAME: Jayla Perla DATE OF SERVICE: October 30, 2018 TIME: 3:15 PM PATIENT IDENTITY VERIFICATION COMPLETED USING TWO (2) METHODS: Patient confirmed name verbally and Date of . PATIENT GENDER DATA: Female. status: : No status: NO. PATIENT RELEVANT IMPLANT DATA REVIEWED: Not Applicable RADIOLOGY DEPARTMENT: General X-ray: Exam(s) Completed: THERAPEUTIC JOINT INJECTION Right Hip PERIPHERAL IV DATA: Not applicable SIGNED BY: RT Alon October 30, 2018 3:15 PM [facility] PROGRESS HNO ID: [id number] Author: Krissy Peace (Fel) Service: ? Author Type: Fellow Type: Progress Notes Filed: 10/30/2018 4:51 PM Note Text: DEPARTMENT OF ORTHOPAEDICS Consultation as a request of Dr. Mosley. Chief Complaint: Right hip pain HISTORY OF PRESENT ILLNESS: This is a pleasant 33 year old female, who presents today with a chief complaint of right hip pain. She had labral repair by Dr. Clay 3 years ago and had continued pain after the surgery. She had an intra-articular injection that took all of her pain away for 24 hours but then it returned. She was mostly pain free until 6 months ago. She notes return of the sharp stabbing pain in her hip joint. She also notes that the entire right leg will go numb. She states this is almost constant. She notes the numbness is interferring with her work. Injury/ Trauma: Denies PAIN EVALUATION 10/30/2018 Pain Level: 6 Pain Location: ? right hip right hip Description: Aching;Sharp;Stabbing Duration Amount of Time: ? 6 months 6 months Frequency: Continuous Intervention: Medication;Reposition;Exerci se;Cold;Relaxation Pain location: anterior Duration of pain/ symptoms: 6 months Frequency: intermittent Intensity: moderate Quality: sharp, aching and shooting She Denies nocturnal pain. She reports numbness or tingling of the entire extremity She denies popping, clicking, catching, locking, grinding, instability, buckling, or giving way. 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: PAST MEDICAL HISTORY Diagnosis Date - LGSIL on Pap smear of cervix 09/2016 colpo 03/2017 ascus only, neg hpv - Nipple discharge 07/2015 right - Obesity (BMI 30-39.9) 09/16/2015 - Papanicolaou smear of cervix with low grade squamous intraepithelial lesion (LGSIL) 07/09/2015 Did not follow up with colposcopy - Right hip pain - Smoker 09/16/2015 - Urolithiasis PAST SURGICAL HISTORY Procedure Laterality Date - COLONOSCOPY - EGD - HIP SURGERY HX 09/2015 - PAST SURGICAL HISTORY OF 07/28/2015 left breast ductotomy Current Outpatient Medications: cyclobenzaprine HCl (FLEXERIL ORAL) Take 10 mg by mouth as needed. Disp: Rfl: No current facility-administered medications for this visit. ALLERGIES Allergen Reactions - Avocado Unknown - Vicodin [Hydrocodon* Rash FAMILY HISTORY Problem Relation Age of Onset - Breast Cancer Paternal Grandmother 40's - Cancer Father mesothelioma - Hypertension Father - Diabetes Mother - Diabetes Paternal Grandfather - Hypertension Sister - Coronary Artery Disease Sister - Ischemic Heart Disease Maternal Grandfather Social History Tobacco Use - Smoking status: Current Every Day Smoker Packs/day: 1.00 Years: 10.00 Pack years: 10.00 Types: Cigarettes Start date: 07/27/2005 - Smokeless tobacco: Never Used - Tobacco comment: 1.0 pack per day Substance Use Topics - Alcohol use: Yes Comment: Once per month if that (rarely) - Drug use: No REVIEW OF SYSTEMS: GENERAL: No weight loss, malaise or fevers HEENT: Negative for frequent or significant headaches, No changes in hearing or vision, no nose bleeds or other nasal problems NECK: Negative for lumps, goiter, pain and significant neck swelling RESPIRATORY: Negative for cough, hemoptysis, wheezing, COPD, dyspnea or shortness of breath CARDIOVASCULAR: Negative for chest pain, leg swelling, hypertension, CHF or palpitations GI: No nausea, vomiting, or diarrhea : No history of dysuria, frequency or incontinence TRANSIT AUTHORITY POLICE OFFICER: Negative for abnormal vaginal bleeding, abnormal vaginal discharge MUSCULOSKELETAL: R hip pain and RLE numbness SKIN: Negative for lesions, rash, and itching HEMATOLOGY/LYMPHOLOGY: Negative for prolonged bleeding, bruising easily or swollen nodes ENDOCRINE: Negative for cold or heat intolerance, polyuria, polydipsia and goiter RADIOGRAPHS: right AP pelvis, AP hip and frog lateral dated within 90 days revealed no acute processes, fractures, or dislocations. There is not a cam lesion. X-Rays Reviewed and discussed. OTHER STUDIES: Not applicable right MRI dated within 30 days revealed increased labral signal medial to prior anchor/repair PHYSICAL EXAM: Ht 5' 4 (1.63m) Wt 177 lb (80.3kg) BMI 30.37 kg/(m2). General: Appears stated age, well built, in no apparent distress. Psychiatric: Mood and affect appropriate. Alert and oriented x 3 without evidence of abnormal respiratory effort. Musculoskeletal Exam: Gait normal, Posture: erect and normal. Exam: Right Left Single Leg Trendelenburg Negative Negative Hip flexion 110 110 IR 60 60 ER 20 20 Anterior impingement positive negative Dynamic labral stress positive negative ANNEMARIE positive negative Posterior Impingement negative negative EVAN negative negative Strength Right Left Supine HF 5/5 5/5 Upright HF 5/5 5/5 Adduction 5/5 5/5 Abduction 5/5 5/5 Tenderness with Palpation: Right Left Greater Troch Negative Negative Gluteus Medius Negative Negative Piriformis Negative Negative Adductor tendons Positive Negative PROCEDURE: Not applicable IMPRESSION: 1. right Hip Labral Tear. 2. RLE numbness PLAN: 1. Medication: None. 2. Test(s)/Imaging/Referral(s): Spine referral. 3. Intervention: Diagnostic hip injection. She will keep ap ain diary after the injection 4. Follow-up: Following above. Krissy Peace MD Sports Medicine/Orthopaedic Surgery Normal [facility] XR ASP/INJ HIP JT/BURSA RTon 10-30-2018 XR ASP/INJ HIP JT/BURSA RT * * *Final Report* * * DATE OF EXAM: Oct 30 2018 3:14PM SHX [id number] - XR ASP/INJ HIP JT/BURSA RT / PROCEDURE REASON: Pain in right hip * * * * Physician Interpretation * * * * FLUOROSCOPICALLY GUIDED RIGHT HIP THERAPEUTIC INJECTION 1. INDICATION: The patient is a 33 year old Female who presented with hip pain. 2. CONSENT: The risks, benefits, treatment options, potential complications and personnel to be involved were discussed (including the risks of radiation exposure, instruments to be used, contrast and anesthesia administration) with the patient. All questions were answered and consent was obtained. The patient indicated willingness to proceed. 3. GENERAL: a) Medication Reconciliation: The patient's medications and allergies were reviewed in the electronic medical record and reconciled to the proposed procedure/treatment. Pre-procedure Sign-in: Safety Checklist Performed Yes c) Positioning: The patient was placed Supine on the fluoroscopy table. d) The hip was then sterilely prepped and draped. e) Time Out: A time out was performed immediately prior to procedure start with the nursing, anesthesia and interventional team, correctly identifying the patient name, date of , procedure, anatomy (including marking of site and side), patient position, procedure consent form, relevant diagnostic and radiology test results, antibiotic administration, safety precautions, and procedure-specific equipment needs. Timeout Time: 14:33 PM Procedure Start Time: 14:33 PM f) Anesthesia Type: Local anesthesia: 6 mL 1% Lidocaine 4. PROCEDURE: a) Procedure Details:A 20g spinal needle was inserted into the hip joint. No joint fluid could be aspirated. 1 ml Omnipaque 300 was injected to confirm intra-articular placement of needle. Contrast was observed to flow into the intra-articular space of the joint without significant resistance. 7 mL of injectate was administered into the joint . The needle was removed. Images were stored to the permanent digital archive documenting needle position. b) Injectate Contents: 6 mL 0.5% Ropivacaine (Naropin) 1 mL Triamcinolone Acetonide (Kenalog) 40mg/ml c) Estimated Blood Loss: 0 mls d) Number and Type of Removed Specimens: None RADIATION DOSE Plane A, Air Kerma: 1.2 mGy mGy Dose Area Product (DAP): 20.6 mGy*cmS2 mGycm2 Fluoro time: 0:06 min:sec POST PROCEDURE: a) Hemostasis: Hemostasis was achieved using light manual compression. b) Sign-out: Communication Performed Yes d) Procedure End Time: 14:35 PM e) Conclusion: The patient was discharged from the radiology department in stable condition. COMPLICATIONS: a) Significant Patient Complication: None b) Complications during the procedure: None 10. RESULTS:Medication was injected into the joint. 11. IMPRESSION: SUCCESSFUL FLUOROSCOPICALLY GUIDED THERAPEUTIC INJECTION OF THE RIGHT HIP DESCRIBED ABOVE. Attending Radiologist: Dr. Smith aH MD Tire Fabricator: Dr. Vivian Bustos DO The procedure was performed by the kitchen assistant, and the attending radiologist was not present but immediately available to furnish services during the entire procedure. Material Coordinator: LAVERNE Transcribe Date/Time: Oct 30 2018 3:29P Dictated by : VIVIAN BUSTOS MD This examination was interpreted and the report reviewed and electronically signed by: SMIHT HA MD on Oct 30 2018 3:45PM EST [id number] Normal [facility] NURSING PROGon 10-15-2018 Protein mass conc HNO ID: [id number] Author: Yu (Rn) KATIE Vargas Service: Radiology Author Type: Registered Nurse Type: Nursing Progress Note Filed: 10/15/2018 2:23 PM Note Text: PATIENT EDUCATION TOPIC: PROCEDURE / SURGERY: Procedure/Surgery: arthrogram with MRI PATIENT NAME: Jayla Perla PATIENT LOCATION: INTERVENTIONAL RADIOL* READINESS TO LEARN COGNITIVE ABILITY: Alert and oriented MOTIVATION TO LEARN: Interested FAMILY SUPPORT: Unable to assess - Family not present INSTRUCTION PROVIDED TO: Patient PATIENT LEARNS BEST BY: Individual Instruction Written Instruction - Hand-outs Verbal Instruction FACTORS AFFECTING LEARNING: None PHYSICAL LIMITATIONS AFFECTING LEARNING: None LEARNING RESPONSE DIAGNOSIS: ADULT: pain PATIENT/FAMILY RESPONSE: Verbalizes understanding of: POST-PROCEDURE INSTRUCTIONS-Correct actions to take to reduce post procedure complications METHOD OF INSTRUCTION: Individual instruction Written instruction - handouts Verbal instruction FOLLOW-UP PLAN: Complete - No need for follow-up INSTRUCTIONAL AIDS USED: NA SUPPLEMENTAL MATERIAL PROVIDED TO PATIENT: None REFERRAL (RECOMMENDATION): None Electronically Signed By: Yu Vargas RN [facility] XR INJ ARTHROGRAM HIP RTon 0 10-15-2018 XR INJ ARTHROGRAM HIP RT * * *Final Report* * * DATE OF EXAM: Oct 15 2018 2:51PM KENNEDY 0065 - XR INJ ARTHROGRAM HIP RT / PROCEDURE REASON: ACETABULAR TEAR RT HIP * * * * Physician Interpretation * * * * PROCEDURE NOTE: PATIENT: JAYLA PERLA. . PRIMARY PROVIDER: Ayleen Ha MD. NURSE PRIVATE DUTY(S): RT. Yu Ayala RN. PROCEDURE: XR INJ ARTHROGRAM HIP RT. Right hip arthrography with fluoroscopic guidance and gadolinium injection prior to MRI. POST-OP DIAGNOSIS: ACETABULAR TEAR RT HIP. PROCEDURE DESCRIPTION: The risks and benefits were explained to the patient who signed informed consent. A sign in and audible timeout was completed prior to starting the procedure. The skin was prepped and draped in sterile fashion. A subcutaneous injection of 5 mL lidocaine 1% was given for local anesthesia. A 22-gauge needle was advanced to the right hip joint space utilizing fluoroscopic guidance. A 12.0-mL injection of 0.1-mL gadolinium/5.0-mL Omnipaque 300/15.0-mL sterile saline solution was completed with no immediate adverse effects. TECHNIQUE/VIEWS: 1 AP right hip fluoroscopic spot image(s) stored in a permanent archive. COMPLICATIONS: None. ESTIMATED BLOOD LOSS: None. SPECIMEN: N/A. IMPRESSION: Completed right hip arthrogram with injection of intra-articular gadolinium prior to MRI. Right hip MRI to be performed and dictated separately. Fluoroscopic Radiation Summary: Plane A, Air Kerma: 5.2 mGy Dose Area Product (DAP): 0.0 mGy*cmS2 Fluoro time: 0:18 min:sec Material Coordinator: LAVERNE Transcribe Date/Time: Oct 15 2018 3:04P Dictated by : Pawel HA MD This examination was interpreted and the report reviewed and electronically signed by: Pawel HA MD on Oct 15 2018 3:12PM EST [id number] [facility] HOSPon 10-10-2018 HOSP Patient:Imer Perla MRN: Height:5' 3 (1.6 m) Weight:No patient weight recorded within the last 30 days. Outpatient Medications as of 10/15/18: Patient has no current outpatient medications. Admission/Clinic Administered Medications as of 10/15/18: Patient has no admission medications. Problem List: Polycystic ovaries [E28.2] Other and unspecified hyperlipidemia [E78.5] Obesity (BMI 30-39.9) [E66.9] Smoker [F17.200] Acetabular labrum tear [S73.199A] Status post arthroscopy of hip [Z98.890] Papanicolaou smear of cervix with low grade squamous intraepithelial lesion (LGSIL) [R87.612] Status post colposcopy [Z98.890] Right hip pain [M25.551] LGSIL on Pap smear of cervix [R87.612] Allergies: Avocado Vicodin [Hydrocodone-Acetaminophen] Date Verified: 10/05/18 Lab Values No results within the last 30 days for the following basenames: K,HCT Progress Notes ([facility]): Yarelis Danielle PA-C 10/11/2018 3:07 PM Signed Responded via [address]. Yarelis Danielle PA-C Progress Notes ([facility]): RT Ion 09/21/2018 12:59 PM Signed Radiology Service Progress Note PATIENT NAME: Jayla Perla DATE OF SERVICE: September 21, 2018 TIME: 12:56 PM PATIENT IDENTITY VERIFICATION COMPLETED USING TWO (2) METHODS: Patient confirmed name verbally and Date of . PATIENT GENDER DATA: Female. status: : No status: NO. PATIENT RELEVANT IMPLANT DATA REVIEWED: Not Applicable RADIOLOGY DEPARTMENT: General X-ray: Exam(s) Completed: Pelvis X-Ray: Pelvis with Hip Right PERIPHERAL IV DATA: Not applicable SIGNED BY: JHONY James September 21, 2018 12:56 PM [facility] BRIEF OP NOTon 10-05-2018 BRIEF OP NOT HNO ID: [id number] Author: Sri Weber Service: Radiology Author Type: Physician Type: Brief Op Note Filed: 10/05/2018 3:35 PM Note Text: Procedure: Joint injection right hip Pre-procedure Diagnosis: Joint pain Post-procedure Diagnosis Joint pain Anesthesia: local Findings: none Estimated blood loss: none Complication: none Specimen: none Sri Weber MD [facility] MRI ARTHROGRAM HIP RTon 09-21 MRI ARTHROGRAM HIP RT * * *Final Report* * * DATE OF EXAM: Oct 05 2018 2:19PM LUM [id number] - MRI ARTHROGRAM HIP RT / PROCEDURE REASON: Pain of right hip joint * * * * Physician Interpretation * * * * EXAMINATION: MRI ARTHROGRAM HIP RT HISTORY: History of right-sided acetabular labral tear status post repair. Pain of right hip joint . TECHNIQUE: MRI ARTHROGRAM HIP RT COMPARISON: Right hip radiographs dated 09/21/2018. MRI arthrogram of the right hip dated 02/04/2016. RESULT: The patient was brought back for a repeat intra-articular injection. On today's study there is contrast in the joint. Suture anchor tracks identified in the anterior superior and superolateral right acetabulum. There is evidence of a labral tear in the anterior superior labrum seen on sagittal series 7 image #19. This is probably just anterior to the anterior most suture anchor. Small areas of chondral fissuring in the anterior superior acetabular labrum. There appears to have been prior femoroplasty No fractures. The tendons around the right hip are all intact appearing. There are no bone marrow replacing lesions. IMPRESSION: TEAR OF THE ANTERIOR-SUPERIOR RIGHT ACETABULAR LABRUM EITHER AT OR JUST ANTERIOR TO THE ANTERIORMOST SUTURE ANCHOR FROM PRIOR REPAIR. MILD ACETABULAR CHONDRAL FISSURING. Material Coordinator: PSCB Transcribe Date/Time: Oct 05 2018 2:32P Dictated by : MARY KAY KEMP MD This examination was interpreted and the report reviewed and electronically signed by: CARSON CARRASQUILLO MD on Oct 15 2018 4:08PM EST [id number] [facility] XR INJ ARTHROGRAM HIP RTon 0 10-05-2018 XR INJ ARTHROGRAM HIP RT * * *Final Report* * * DATE OF EXAM: Oct 05 2018 1:25PM KENNEDY 0065 - XR INJ ARTHROGRAM HIP RT / PROCEDURE REASON: TEAR RT ACETABULAR LABRUM * * * * Physician Interpretation * * * * JOINT INJECTION-RIGHT hip The patient was informed of indications risks, and alternatives. The patient was told how procedure would be performed and who would assist. She appeared to understand and gave consent. Pre-procedure Sign-in: Safety Checklist Performed: Yes. The team confirmed the correct patient, correct site, site marking, correct procedure, and correct position. Sign-out: Communication performed: Yes Under sterile conditions with one percent lidocaine as local anesthetic a 22 gauge spinal needle was advanced with fluoroscopic guidance into the RIGHT hip joint. 2-3 cc of Omnipaque 300 contrast was administered to confirm position of needle tip in the joint. Subsequently, approximately 10 cc of 1:125 diluted Dotaram was administered. The patient tolerated the procedure without incident. Fluoroscopic Radiation Summary: Plane A, Air Kerma: 26.4 mGy Dose Area Product (DAP): 0.0 mGy*cmS2 Fluoro time: 0:48 min:sec An MRI was performed and will be dictated separately. MRI demonstrated fluid in RIGHT hip joint. However, no appreciable T1 hyperintensity in the fluid, uncertain etiology. Plan is to repeat hip injection on a subsequent day with repeat MR imaging. Material Coordinator: PSCB Transcribe Date/Time: Oct 05 2018 3:32P Dictated by : SRI WEBER MD This examination was interpreted and the report reviewed and electronically signed by: SRI WEBER MD on Oct 05 2018 3:34PM EST [id number] [facility] HOSPon 09-24-2018 HOSP Patient:Imer Perla MRN: Height:5' 3 (1.6 m) Weight:No patient weight recorded within the last 30 days. Outpatient Medications as of 10/05/18: Patient has no current outpatient medications. Admission/Clinic Administered Medications as of 10/05/18: Patient has no admission medications. Problem List: Polycystic ovaries [E28.2] Other and unspecified hyperlipidemia [E78.5] Obesity (BMI 30-39.9) [E66.9] Smoker [F17.200] Acetabular labrum tear [S73.199A] Status post arthroscopy of hip [Z98.890] Papanicolaou smear of cervix with low grade squamous intraepithelial lesion (LGSIL) [R87.612] Status post colposcopy [Z98.890] Right hip pain [M25.551] LGSIL on Pap smear of cervix [R87.612] Allergies: Avocado Vicodin [Hydrocodone-Acetaminophen] Date Verified: 09/21/18 Lab Values No results within the last 30 days for the following basenames: K,HCT Progress Notes ([facility]): RT Ion 09/21/2018 12:59 PM Signed Radiology Service Progress Note PATIENT NAME: Jayla Perla DATE OF SERVICE: September 21, 2018 TIME: 12:56 PM PATIENT IDENTITY VERIFICATION COMPLETED USING TWO (2) METHODS: Patient confirmed name verbally and Date of . PATIENT GENDER DATA: Female. status: : No status: NO. PATIENT RELEVANT IMPLANT DATA REVIEWED: Not Applicable RADIOLOGY DEPARTMENT: General X-ray: Exam(s) Completed: Pelvis X-Ray: Pelvis with Hip Right PERIPHERAL IV DATA: Not applicable SIGNED BY: JHONY James September 21, 2018 12:56 PM Progress Notes ([facility]): Epifanio Mosley Jr, MD 09/21/2018 1:32 PM Signed HISTORY OF PRESENT ILLNESS: Jayla is a 33 year old female. She is here for evaluation of Right hip pain. She reports that 3 years ago she had a hip arthroscopy done. She says that she never got any better after the surgery and had an MRI 6 months after the surgery and it showed a persistent labral tear. She has not had anything done with the hip over the past 2-1/2 years. Injury:No Metal allergy: No Location of pain: Right groin and anterior thigh Pain: Yes LOCATION: Right groin and anterior thigh PAIN SCALE: 8 on a scale of 0-10 PAIN CHARACTER: aching DURATION: (How long have you had the pain?) 2-1/2 years FREQUENCY: (How often does the pain occur?) occurs daily Onset: progressive Quality: aching and stabbing Swelling: Patient does not note any swelling of the joint. Aggravating/alleviating factors:Aggravating Factors: Regular daily ambulation Alleviating Factors: Rest Radicular Symptoms:No Bowel/Bladder Dysfunction: No Activities: walking Restriction: none Progression: Worsening Previous treatment: surgery (has undergone Arthroscopic labral repair, no paperwork received) NSAIDS: Patient has not used any prescription, OTC or herbal medications to aid in relief of this problem. PT:No physical therapy program has been initiated. MEDICATIONS No current outpatient prescriptions on file prior to visit. No current facility-administered medications on file prior to visit. ALLERGIES ALLERGIES Allergen Reactions - Avocado Unknown - Vicodin [Hydrocodon* Rash PAST MEDICAL HISTORY PAST MEDICAL HISTORY Diagnosis Date - LGSIL on Pap smear of cervix 09/2016 colpo 03/2017 ascus only, neg hpv - Nipple discharge 07/2015 right - Obesity (BMI 30-39.9) 09/16/2015 - Papanicolaou smear of cervix with low grade squamous intraepithelial lesion (LGSIL) 07/09/2015 Did not follow up with colposcopy - Right hip pain - Smoker 09/16/2015 - Urolithiasis PAST SURGICAL HISTORY PAST SURGICAL HISTORY Procedure Laterality Date - COLONOSCOPY - EGD - HIP SURGERY HX 09/2015 - PAST SURGICAL HISTORY OF 07/28/2015 left breast ductotomy SOCIAL HISTORY Marital Status: single (never ) Tobacco: Smoker Alcohol: Unknown FAMILY HISTORY Does a similar condition to what you are experiencing run in your family? 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 [employer] ROS: Have you or are you being treated for any conditions in the following areas: Head: No Eyes: No ENT: No Lungs: No Heart/BP: No Gastrointestinal: No Nephrology: No Neurological: No Psych: No Diabetes: No Rheumatology: No PHYSICAL EXAM: Gait: Normal No Limp antalgic:right Symmetry: Swelling no Redness no Ecchymosis no Examination of the Right hip Right: ROM: Extension: 5 degree flexion contracture Flexion: 110 degrees Internal Rotation: 10 degrees External Rotation: 30 degrees Abduction: 40 degrees Adduction: 5 degrees Strength: Abduction 5/5 and Flexion 5/5 Palpation: No tenderness Log roll: painful. Straight leg raise: Negative Neurovascular Status: Sensation Intact, Moves foot and ankle up AND down and 2+ dorsalis pedis Fabere sign is positive RADIOGRAPHS (personally reviewed): Patient's maintaining a joint space in both hips MRI: None DIAGNOSIS Encounter Diagnosis ICD-10-CM 1. Tear of right acetabular labrum, subsequent encounter S73.191D XR INJ ARTHROGRAM HIP RT 2. Pain of right hip joint M25.551 MRI ARTHROGRAM HIP RT PLAN Suspicion is for a recurrent acetabular labral tear on the right side. I discussed this with the patient. We show schedule an MR arthrogram and have her follow up with one of our sports medicine colleagues for surgical consideration. PROCEDURE: None. Epifanio Mosley Jr, MD [facility] Office Visit ([facility] ) GARFIELDJAYLA PETERSEN ([id number]) 1985 F Date Time Provider Department 09/21/18 1:00 PM EPIFANIO MOSLEY JR During your visit today, we recorded the following information about you: Epifanio Mosley Jr, MD 09/21/2018 1:32 PM Signed HISTORY OF PRESENT ILLNESS: Jayla is a 33 year old female. She is here for evaluation of Right hip pain. She reports that 3 years ago she had a hip arthroscopy done. She says that she never got any better after the surgery and had an MRI 6 months after the surgery and it showed a persistent labral tear. She has not had anything done with the hip over the past 2-1/2 years. Injury:No Metal allergy: No Location of pain: Right groin and anterior thigh Pain: Yes LOCATION: Right groin and anterior thigh PAIN SCALE: 8 on a scale of 0-10 PAIN CHARACTER: aching DURATION: (How long have you had the pain?) 2-1/2 years FREQUENCY: (How often does the pain occur?) occurs daily Onset: progressive Quality: aching and stabbing Swelling: Patient does not note any swelling of the joint. Aggravating/alleviating factors:Aggravating Factors: Regular daily ambulation Alleviating Factors: Rest Radicular Symptoms:No Bowel/Bladder Dysfunction: No Activities: walking Restriction: none Progression: Worsening Previous treatment: surgery (has undergone Arthroscopic labral repair, no paperwork received) NSAIDS: Patient has not used any prescription, OTC or herbal medications to aid in relief of this problem. PT:No physical therapy program has been initiated. MEDICATIONS No current outpatient prescriptions on file prior to visit. No current facility-administered medications on file prior to visit. ALLERGIES ALLERGIES Allergen Reactions - Avocado Unknown - Vicodin [Hydrocodon* Rash PAST MEDICAL HISTORY PAST MEDICAL HISTORY Diagnosis Date - LGSIL on Pap smear of cervix 09/2016 colpo 03/2017 ascus only, neg hpv - Nipple discharge 07/2015 right - Obesity (BMI 30-39.9) 09/16/2015 - Papanicolaou smear of cervix with low grade squamous intraepithelial lesion (LGSIL) 07/09/2015 Did not follow up with colposcopy - Right hip pain - Smoker 09/16/2015 - Urolithiasis PAST SURGICAL HISTORY PAST SURGICAL HISTORY Procedure Laterality Date - COLONOSCOPY - EGD - HIP SURGERY HX 09/2015 - PAST SURGICAL HISTORY OF 07/28/2015 left breast ductotomy SOCIAL HISTORY Marital Status: single (never ) Tobacco: Smoker Alcohol: Unknown FAMILY HISTORY Does a similar condition to what you are experiencing run in your family? 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 ROS: Have you or are you being treated for any conditions in the following areas: Head: No Eyes: No ENT: No Lungs: No Heart/BP: No Gastrointestinal: No Nephrology: No Neurological: No Psych: No Diabetes: No Rheumatology: No PHYSICAL EXAM: Gait: Normal No Limp antalgic:right Symmetry: Swelling no Redness no Ecchymosis no Examination of the Right hip Right: ROM: Extension: 5 degree flexion contracture Flexion: 110 degrees Internal Rotation: 10 degrees External Rotation: 30 degrees Abduction: 40 degrees Adduction: 5 degrees Strength: Abduction 5/5 and Flexion 5/5 Palpation: No tenderness Log roll: painful. Straight leg raise: Negative Neurovascular Status: Sensation Intact, Moves foot and ankle up AND down and 2+ dorsalis pedis Fabere sign is positive RADIOGRAPHS (personally reviewed): Patient's maintaining a joint space in both hips MRI: None DIAGNOSIS Encounter Diagnosis ICD-10-CM 1. Tear of right acetabular labrum, subsequent encounter S73.191D XR INJ ARTHROGRAM HIP RT 2. Pain of right hip joint M25.551 MRI ARTHROGRAM HIP RT PLAN Suspicion is for a recurrent acetabular labral tear on the right side. I discussed this with the patient. We show schedule an MR arthrogram and have her follow up with one of our sports medicine colleagues for surgical consideration. PROCEDURE: None. Epifanio Mosley Jr, MD Referring Provider: SELF [[id number]] Allergies As of Date: 09/21/2018 Noted Allergy Reaction AVOCADO 07/27/2015 16 - Unknown VICODIN (HYDROCODONE-ACETAMINOPHE* 2 - Rash Date Reviewed: 09/21/2018 Reviewed by: Heavenly Saravia Ma - Fully Assessed Reason for Visit: Right Hip Pain [1554] Primary Visit Diagnosis:Tear of right acetabular labrum, subsequent encounter [S73.191D] Other Visit Diagnosis:Pain of right hip joint [M25.551] Order(s):MRI ARTHROGRAM HIP RT [[id number]] Order #: [id number] FUTURE XR INJ ARTHROGRAM HIP RT [[id number]] Order #: [id number] FUTURE Problem List As Of Date 09/21/2018 Noted Resolved Migraine without aura, without mention of intra*INVALID FOR*09/16/2015 Headache(784.0) [R51] INVALID FOR*09/16/2015 Epistaxis [R04.0] INVALID FOR*07/27/2015 Migraine [346] INVALID FOR*09/16/2015 POLYCYSTIC OVARIES [E28.2] INVALID FOR* HYPERLIPIDEMIA NEC/NOS [E78.5] INVALID FOR* Calculus of ureter [N20.1] INVALID FOR*07/27/2015 Nipple discharge [N64.52] INVALID FOR*08/12/2015 More... Obesity (BMI 30-39.9) [E66.9] INVALID FOR* Smoker [F17.200] INVALID FOR* Acetabular labrum tear [S73.199A] INVALID FOR* Status post arthroscopy of hip [Z98.890] INVALID FOR* Papanicolaou smear of cervix with low grade squ*INVALID FOR* More... Status post colposcopy [Z98.890] INVALID FOR* More... Right hip pain [M25.551] LGSIL on Pap smear of cervix [R87.612] INVALID FOR* More... Medications Discontinued During This Encounter naproxen (NAPROSYN) 500 mg tablet 60 t* 1 05/05/2017 09/21/2018 Route: ORAL Sig: Take 1 tablet by mouth twice daily as needed (Take with meals). Disc: Reason for discontinue is not on file. Encounter Status:Closed by EPIFANIO MOSLEY JR, MD on 09/21/18 [facility] PROGRESSon 09-21-2018 PROGRESS HNO ID: [id number] Author: Epifanio Mosley Jr. Service: (none) Author Type: Physician Type: Progress Notes Filed: 09/21/2018 1:32 PM Note Text: HISTORY OF PRESENT ILLNESS: Jayla is a 33 year old female. She is here for evaluation of Right hip pain. She reports that 3 years ago she had a hip arthroscopy done. She says that she never got any better after the surgery and had an MRI 6 months after the surgery and it showed a persistent labral tear. She has not had anything done with the hip over the past 2-1/2 years. Injury:No Metal allergy: No Location of pain: Right groin and anterior thigh Pain: Yes LOCATION: Right groin and anterior thigh PAIN SCALE: 8 on a scale of 0-10 PAIN CHARACTER: aching DURATION: (How long have you had the pain?) 2-1/2 years FREQUENCY: (How often does the pain occur?) occurs daily Onset: progressive Quality: aching and stabbing Swelling: Patient does not note any swelling of the joint. Aggravating/alleviating factors:Aggravating Factors: Regular daily ambulation Alleviating Factors: Rest Radicular Symptoms:No Bowel/Bladder Dysfunction: No Activities: walking Restriction: none Progression: Worsening Previous treatment: surgery (has undergone Arthroscopic labral repair, no paperwork received) NSAIDS: Patient has not used any prescription, OTC or herbal medications to aid in relief of this problem. PT:No physical therapy program has been initiated. MEDICATIONS No current outpatient prescriptions on file prior to visit. No current facility-administered medications on file prior to visit. ALLERGIES ALLERGIES Allergen Reactions - Avocado Unknown - Vicodin [Hydrocodon* Rash PAST MEDICAL HISTORY PAST MEDICAL HISTORY Diagnosis Date - LGSIL on Pap smear of cervix 09/2016 colpo 03/2017 ascus only, neg hpv - Nipple discharge 07/2015 right - Obesity (BMI 30-39.9) 09/16/2015 - Papanicolaou smear of cervix with low grade squamous intraepithelial lesion (LGSIL) 07/09/2015 Did not follow up with colposcopy - Right hip pain - Smoker 09/16/2015 - Urolithiasis PAST SURGICAL HISTORY PAST SURGICAL HISTORY Procedure Laterality Date - COLONOSCOPY - EGD - HIP SURGERY HX 09/2015 - PAST SURGICAL HISTORY OF 07/28/2015 left breast ductotomy SOCIAL HISTORY Marital Status: single (never ) Tobacco: Smoker Alcohol: Unknown FAMILY HISTORY Does a similar condition to what you are experiencing run in your family? 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 ROS: Have you or are you being treated for any conditions in the following areas: Head: No Eyes: No ENT: No Lungs: No Heart/BP: No Gastrointestinal: No Nephrology: No Neurological: No Psych: No Diabetes: No Rheumatology: No PHYSICAL EXAM: Gait: Normal No Limp antalgic:right Symmetry: Swelling no Redness no Ecchymosis no Examination of the Right hip Right: ROM: Extension: 5 degree flexion contracture Flexion: 110 degrees Internal Rotation: 10 degrees External Rotation: 30 degrees Abduction: 40 degrees Adduction: 5 degrees Strength: Abduction 5/5 and Flexion 5/5 Palpation: No tenderness Log roll: painful. Straight leg raise: Negative Neurovascular Status: Sensation Intact, Moves foot and ankle up AND down and 2+ dorsalis pedis Fabere sign is positive RADIOGRAPHS (personally reviewed): Patient's maintaining a joint space in both hips MRI: None DIAGNOSIS Encounter Diagnosis ICD-10-CM 1. Tear of right acetabular labrum, subsequent encounter S73.191D XR INJ ARTHROGRAM HIP RT 2. Pain of right hip joint M25.551 MRI ARTHROGRAM HIP RT PLAN Suspicion is for a recurrent acetabular labral tear on the right side. I discussed this with the patient. We show schedule an MR arthrogram and have her follow up with one of our sports medicine colleagues for surgical consideration. PROCEDURE: None. Epifanio Mosley Jr, MD Normal [facility] PROGRESS HNO ID: [id number] Author: Pat (RtAlysha Horowitz Service: (none) Author Type: [employer] Type: Progress Notes Filed: 09/21/2018 12:59 PM Note Text: Radiology Service Progress Note PATIENT NAME: Jayla Perla DATE OF SERVICE: September 21, 2018 TIME: 12:56 PM PATIENT IDENTITY VERIFICATION COMPLETED USING TWO (2) METHODS: Patient confirmed name verbally and Date of . PATIENT GENDER DATA: Female. status: : No status: NO. PATIENT RELEVANT IMPLANT DATA REVIEWED: Not Applicable RADIOLOGY DEPARTMENT: General X-ray: Exam(s) Completed: Pelvis X-Ray: Pelvis with Hip Right PERIPHERAL IV DATA: Not applicable SIGNED BY: JHONY James September 21, 2018 12:56 PM Normal [facility] XR HIP 3V PELV+ AP/LAT RTon 09-21-2018 XR HIP 3V PELV+ AP/LAT RT * * *Final Report* * * DATE OF EXAM: Sep 21 2018 12:58PM LZX [id number] - XR HIP 3V PELV+ AP/LAT RT / PROCEDURE REASON: Pain * * * * Physician Interpretation * * * * HISTORY: Chronic right hip pain, patient states history of labral tear and surgical repair. Pain . TECHNIQUE: XR HIP 3V PELV+ AP/LAT RT Laterality: RIGHT Number of different views (projections): 3 COMPARISON: 2014 RESULT: No change in the appearance of the right hip since the prior study. There is no fracture. No joint space narrowing. The bony pelvis is intact. Normal SI joints. IMPRESSION: No change in the appearance of the hip since the prior study. Material Coordinator: PSCB Transcribe Date/Time: Sep 21 2018 1:10P Dictated by : YOVANY ROGERS MD This examination was interpreted and the report reviewed and electronically signed by: YOVANY ROGERS MD on Sep 21 2018 5:33PM EST [id number] Normal [facility] BRAIN W AND WO CONTRASTon BRAIN W AND WO CONTRAST STUDY:BRAIN W WO CONTRAST; 05/16/2018 7:10 pmINDICATION:CERVICOGENIC HEADACHE.COMPARISON:None.ACC ESSION NUMBER(S):[id number] RING CLINICIAN:Jayson MercedesTECHNIQUE:Axial diffusion, axial T2, axial gradient echo T2, axial FLAIR, axialT1, post gadolinium volumetric T1, as well as post gadolinium axial,sagittal, and coronal T1 weighted MRI images of the brain wereobtained. The patient received 18 mL of MultiHance gadoliniumintravenously.FIND INGS:The diffusion weighted images fail to demonstrate abnormal diffusionrestriction to suggest acute infarction.The ventricular system is nondilated.No brain parenchymal signal abnormality is noted.No abnormal intracranial mass lesion or abnormal intracranialenhancement is identified on the postcontrast images.There is partial opacification of the right maxillary sinus. Theremaining paranasal sinuses and mastoid air cells are clear.IMPRESSION:No brain parenchymal signal abnormality or abnormal intracranial masslesion is noted.The study was interpreted at [facility]. Normal [facility] CERVICAL SP APANDLAT OR 2-3 VWSon 05-07-2018 CERVICAL SP APANDLAT OR 2-3 VWS STUDY:CERVICAL SP AP LAT OR 2-3 VWS; 05/07/2018 11:39 amINDICATION:CERVICOGENIC HEADACHE.COMPARISON:None.[facility] ESSION NUMBER(S):[id number] RING CLINICIAN:Jayson MercedesFINDINGS:Multiple views of the cervical spine are obtained. Alignment isintact except for straightening of the lower cervical lordosis.. Thevertebral body heights and disc heights are preserved. . No acutefracture-dislocation.IM PRESSION:Straightening of normal cervical lordosis. Otherwise unremarkableexam. Normal [facility] Office Visit (Neuro-General) on 05-07-2018 Office Visit (Neuro-General) Chief ComplaintNPV for severe migraines History of Present IllnessThis is a 32-year-old lady who is been having headaches for the past several months that begin in the sub-occipital region bilaterally, and occur more than 15 days per month, accompanied by photophobia, phonophobia, nausea, and patient is relatively incapacitated during the headaches. She does have a visual aura and balance issues during the headache, but there is no associated history of double vision, slurring of speech, asymmetric weakness of the extremities, or numbness/tingling, during the headache. No history of head trauma, meningitis, developmental delay, abnormal history or family history of symptoms. She was started on Inderal 60 mg daily, with some improvement, and it was therefore increased to 120mg daily, last week. She also was given Imitrex , which was increased from 25-50 mg.I personally reviewed family history. I personally reviewed 12-system [id number] checklist completed by patient, included in medical chart.I personally reviewed medical records and conveyed findings to patient. I personally reviewed bloodwork and conveyed findings to patient. CBC showed increased white count last year. Active Problems Abdominal pain (789.00) (R10.9) Acute left flank pain (789.09,338.19) (R10.9) Cervical radiculopathy (723.4) (M54.12) Hematuria (599.70) (R31.9) Hyperlipidemia (272.4) (E78.5) Left ankle pain (719.47) (M25.572) Migraines (346.90) (G43.909) Neck pain (723.1) (M54.2) Paresthesias/numbness (782.0) (R20.9) Physical exam, annual (V70.0) (Z00.00) Renal colic (788.0) (N23) Seizure (780.39) (R56.9) Smoking trying to quit (305.1) (Z72.0) UTI (urinary tract infection) (599.0) (N39.0) Past Medical History No pertinent past medical history Surgical History History of Hip Surgery History of Oral Surgery Tooth Extraction Family History Family history of Pre-diabetes Family history of malignant neoplasm (V16.9) (Z80.9) Family history of Mesothelioma, malignant Family history of myocardial infarction (V17.3) (Z82.49) FHx: early [place] (V17.3) (Z82.49) Family history of malignant neoplasm of breast (V16.3) (Z80.3) Family history of diabetes mellitus (V18.0) (Z83.3) Family history of myocardial infarction (V17.3) (Z82.49) Family history of malignant neoplasm (V16.9) (Z80.9) Social History Current every day smoker (305.1) (F17.200) Marijuana daily No alcohol use No drug use Occupation Smoking trying to quit (305.1) (Z72.0) Tobacco use (305.1) (Z72.0) Allergies Vicodin TABS Hives;; Recorded By: Saritha Clemente; 10/29/2014 11:53:42 AM Current Meds Medication NameInstructionReasonInderal LA 120 MG CPCRMigrainesFluticasone Propionate 50 MCG/ACT Nasal SuspensionSUMAtriptan Succinate 50 MG Oral Tablet Vitals Vital Signs Recorded: 38Uwr6738 09:59AMHeart Zqgd39Uwlvpb7 ft 4 xvQjfmap697 lb BMI Adwluuitej71.9BSA Calculated1.87 Physical ExamConstitutional: General appearance: no acute distress Auscultation of Heart: Regular rate and rhythm, no murmurs, normal S1 and S2. Carotid Arteries: Intact without any bruits Peripheral Vascular Exam: Pulses +2 and equal in all extremities. No swelling, varicosities, edema or tenderness to palpations Mental status: The patient was in no distress, alert, interactive and cooperative. Affect is appropriate. Orientation: oriented to person, oriented to place and oriented to time. Memory: recent memory intact and remote memory intact. Attention: normal attention span and normal concentrating ability. Language: normal comprehension and no difficulty naming common objects. Fund of knowledge: Patient displays adequate knowledge of current events, adequate fund of knowledge regarding past history and adequate fund of knowledge regarding vocabulary. Eyes: The ophthalmoscopic examination was normal. The fundi are visualized with normal disc margins and without hemorrhages Cranial nerve II: Visual [place] full to confrontation. Cranial nerves III, IV, and : Pupils round, equally reactive to light; no ptosis. EOMs intact. No nystagmus. Cranial Nerve V: Facial sensation intact bilaterally. Cranial nerve VII: Normal and symmetric facial strength. Cranial nerve VIII: Hearing is intact bilaterally to finger rub / whisper. Cranial nerves IX and X: Palate elevates symmetrically. Cranial nerve XI: Shoulder shrug and neck rotation strength are intact. Cranial nerve XII: Tongue midline with normal strength. Motor: Motor exam was normal. Muscle bulk was normal in both upper and lower extremities. Muscle tone was normal in both upper and lower extremities. Muscle strength was 5/5 throughout. no abnormal or adventitious movements were present. Deep Tendon Reflexes: left biceps 2+ , right biceps 2+, left triceps 2+, right triceps 2+, left brachioradialis 2+, right brachioradialis 2+, left patella 2+, right patella 2+, left ankle jerk 2+, right ankle jerk 2+ Plantar Reflex: Toes downgoing to plantar stimulation on the left. Toes downgoing to plantar stimulation on the right. Sensory Exam: Normal to light touch. Coordination: There is no limb dystaxia and rapid alternating movements are intact. Gait: Gait is normal without spasticity, ataxia or bradykinesia. Stance is stable with a negative Romberg. Diagnoses/Problems Cervicogenic headache (784.0) (R51) OrdersCervicogenic headache MRI Brain w/wo Contrast; Status:Hold For - Scheduling; Requested for:[id number]; Perform:[facility]; Due:[id number];Ordered; For:Cervicogenic headache; Ordered By:Jayson Mercedes;Radiologist to Determine Optimal Study : YWhat are the patient's signs and symptoms? : Headache Xray Cervical Spine 2 or 3 View; Status:Hold For - Scheduling; Requestedfor:[id number]; Perform:[facility]; Due:64Gdn5040;Ordered; For:Cervicogenic headache; Ordered By:Jayson Mercedes;Radiologist to Determine Optimal Study : YWhat are the patient's signs and symptoms? : Headache Physical Medicine and Rehab Referral Evaluation and Treatment Evaluate AND Treat Status:Hold For - Scheduling Requested for: [id number] Ordered;For: Cervicogenic headache; Ordered By: Jayson Mercedes Performed: Due: [id number] Physical Therapy Referral Evaluation and Treatment Evaluate AND Treat Status: Hold For -Scheduling Requested for: [id number] Ordered;For: Cervicogenic headache; Ordered By: Jayson Mercedes Performed: Due: [id number] Provider ImpressionsPatient most likely has migraine headache disorder, however, has of the suboccipital location and onset, I imagine that there may be a cervicogenic component. Therefore, I will recommend physical therapy to strengthen posterior neck muscles, and referral to a specialist for consideration of occipital nerve block.I will order MRI scan of brain, as well.I had an extensive discussion with patient regarding pathophysiology, diagnosis, differential diagnosis, and management of migraine headaches. I discussed abortive therapies, including triptan medications, and discussed the differences between the different triptan medications. I discussed prophylactic medications, including Topamax, Cymbalta, Depakote, and, Inderal. I also discussed Botox therapy, nerve stimulators, and local nerve blocks. I discussed the mechanism of occipital neuralgia as a result of chronic posterior cervical muscle tension secondary to stress, that approximates facet joints to the point of inflammation and irritation of the occipital nerve fibers at the level of C2 or possibly C3, that refers pain to the head regions described by patient. I discussed several treatments including physical therapy, acupuncture, massage, muscle relaxants, nerve blocking agents such as gabapentin or pregabalin, pain medicine, occipital nerve block, epidural steroid injections, and cervical decompression surgery. I will order physical therapy to strengthen posterior cervical muscles, and I will order a cervical spine x-ray to rule out any injury that would require intervention.If the above measures are not successful in reducing symptoms, then I will order MRI scan of the cervical spine.Patient's migraines can severely impair quality of life, therefore, I urged adherence to management regimen and recommendations in order to hasten treatment. Patient Discussion/SummaryPlease schedule physical therapy to strengthen posterior cervical musclesPlease have x-ray of cervical spine performedFollow-up in 4-6 weeks, at which time we will consider MRI cervical spine, if symptoms persistPlease schedule an appointment for occipital nerve block, consideration PMNRPlease have MRI scan of brainThank Mellisa Mercedes MD MPH Signatures Electronically signed by : Jayson Mercedes MD; May 07 2018 10:41AM EST (Author) Normal [employer] XR ANKLE LEFT COMPLETEon XR ANKLE LEFT COMPLETE Clinical Indication: Remote injury/persistent lateral painFindings: LeftThe examination reveals soft tissues are unremarkable, osseousstructures are well mineralized. There is no evidence of fracture,dislocation or other osseous abnormality. Ankle mortise is intact.Impression:Negative left ankle. Technologist: KMDictated By: Joy VELAZQUEZ MD By: Joy VELAZQUEZ MD Out: 05/10/17 16:45:00 Normal [facility] XR FOOT LEFT COMPLETEon 04-22 XR FOOT LEFT COMPLETE Clinical Indicatio n: Remote injury/persistent painFindings: LeftThe soft tissues are unremarkable, the osseous structures are wellmineralized. There is no evidence of fracture, dislocation or otherosseous abnormality. The joint spaces are intact. Incidentally notedmild hammertoe deformity.Impression:Negativ e left foot.Technologist: KMDictated By: Joy VELAZQUEZ MD By: Joy VELAZQUEZ MD Out: 05/10/17 16:43:48 Normal [facility] Vital Signs Date Time Vital Sign Value Performing Clinician Facility 05-15-2024 14:49-0400 Body mass index (BMI) [Ratio] 30.04 kg/m2 Mahesh Zapata MD Work Phone: [facility] 05-15-2024 14:49-0400 Body weight 79.38 kg Mahesh Zapata MD Work Phone: [facility] 05-15-2024 14:49-0400 Diastolic blood pressure 78 mm[Hg] Mahesh Zapata MD Work Phone: [facility] 05-15-2024 14:49-0400 Systolic blood pressure 122 mm[Hg] Mahesh Zapata MD Work Phone: [facility] 03-19-2022 18:37-0400 Body height 162.6 cm [facility] Rubi [facility] 03-19-2022 18:37-0400 Body mass index (BMI) [Ratio] 30.04 kg/m2 Anna Rubi MD Work Phone: [employer] 03-19-2022 18:37-0400 Body temperature 98.2 [degF] Anna Rubi MD Work Phone: [facility] [employer] [facility] 03-19-2022 18:37-0400 Body weight 79.38 kg Anna Rubi MD Work Phone: [facility] [employer] [facility] 03-19-2022 18:37-0400 Diastolic blood pressure 96 mm[Hg] Anna Rubi MD Work Phone: [employer] 03-19-2022 18:37-0400 Heart rate 83 /min Anna Rubi MD Work Phone: [employer] 03-19-2022 18:37-0400 SaO2% (BldA) [Mass fraction] 100 % Anna Rubi MD Work Phone: [employer] 03-19-2022 18:37-0400 Systolic blood pressure 151 mm[Hg] Anna Rubi MD Work Phone: [facility] Encounters Encounter Date Encounter Type Care Provider Facility Start: 06-06-2024 End: 06-06-2024 Patient encounter procedure DO Saad Bunting Work Phone: [facility] Start: 06-06-2024 End: 06-06-2024 ambulatory DO Saad Bunting Work Phone: [facility] Work Phone: Start: 06-04-2024 End: 06-04-2024 ambulatory MICHAEL LEIGH Not Available Start: 05-29-2024 End: 05-29-2024 Patient encounter procedure DO Saad Bunting Work Phone: [facility] [place] Work Phone: Start: 05-29-2024 End: 05-29-2024 ambulatory DO Saad Bunting Work Phone: [facility] Work Phone: Start: 05-29-2024 Encounter for genera l adult medical examination without abnormal findings Saad Bunting [facility] Start: 05-15-2024 End: 05-15-2024 ambulatory MAHESH ZAPATA Not Available Start: 05-15-2024 End: 05-15-2024 Initial preventive medicine new pt age 18-39yrs Mahesh Zapata MD Work Phone: [facility] Comment on above: Well woman exam with routine gynecological exam; Cervical cancer screening; Screening for HPV (human papillomavirus); Mild dysplasia of cervix (CHAS I); Abdominal cramping Start: 05-15-2024 End: 05-15-2024 Patient encounter procedure Mahesh Zapata MD Work Phone: [facility] Start: 05-15-2024 End: 05-15-2024 Bamboo flowsheet Mahesh Zapata MD Work Phone: [facility] Start: 05-15-2024 End: 05-15-2024 Bamboo flowsheet Mahesh Zapata MD Work Phone: [facility] Start: 05-15-2024 End: 05-21-2024 Orders Only Mahesh Zapata MD Work Phone: [facility] External Department Unsolicited Start: 10-19-2023 End: 10-19-2023 ambulatory MICHAEL LEIGH Not Available Start: 09-07-2023 End: 09-07-2023 ambulatory MICHAEL LEIGH Not Available Start: 11-02-2022 End: 11-02-2022 ambulatory DO Saad Bunting Work Phone: [facility] Work Phone: Start: 11-02-2022 End: 11-02-2022 Patient encounter procedure DO Saad Bunting Work Phone: [facility] Start: 10-04-2022 End: 10-04-2022 ambulatory DO Saad Bunting Work Phone: [facility] Work Phone: Start: 10-04-2022 End: 10-04-2022 Patient encounter procedure DO Saad Bunting Work Phone: [facility] [place] Work Phone: Start: 05-25-2022 End: 05-25-2022 ambulatory DO Saad Bunting Work Phone: [facility] Work Phone: Start: 05-25-2022 End: 05-25-2022 Patient encounter procedure DO Saad Bunting Work Phone: [facility] [place] Start: 03-19-2022 End: 03-19-2022 Emergency department patient visit ANNA RUBI [facility] Start: 03-19-2022 End: 03-19-2022 Emergency department patient visit Anna Rubi MD Work Phone: [facility] ED Comment on above: Contusion of right f orearm, initial encounter (Primary Dx) Start: 10-15-2018 Patient encounter procedure [facility] Start: 10-05-2018 Patient encounter procedure EPIFANIO MOSLEY [facility] Start: 05-16-2018 Patient encounter Jayson Salinas ility:[facility] Start: 05-16-2018 Patient encounter Humaira Salinas ility:[id number] Start: 05-07-2018 Patient encounter Jayson Salinas ility:[facility] Start: 05-07-2018 Patient encounter Jayson Mercedes Facility:[id number] Start: 05-07-2018 Patient encounter Humaira Salinas ility:[id number] Start: 05-10-2017 End: 05-11-2017 Ambulatory DEANGELO MUKHERJEE Facility:[id number] Procedures Date Procedure Procedure Detail Performing Clinician Start: 06-06-2024 End: 06-06-2024 Ultrasonography of limb DO Saad yañez Work Phone: Start: 05-15-2024 Cytp c/v auto thin l yr prepj scr mnl rescr phys Mahesh Zapata MD Work Phone: Start: 01-09-2017 Microscopic observat ion [Identifier] in Cervix by Cyto stain Anna Rubi MD Work Phone: Plan of Treatment Date Care Activity Detail Author Start: 06-04-2024 End: 06-04-2024 Professional / ancillary services management 06/04/2024 8:30 AM EDT Ancillary Procedure [facility] [address] [place] [id number] [facility] Start: 04-21-2022 Influenza vaccination Flu vaccine (# 1) [facility] Start: 08-12-2021 Depression Screen Depression Screen [facility] Start: 01-10-2020 Screening for malign ant neoplasm of cervix [facility] Start: 2016 Screening for malign ant neoplasm of cervix HPV (without or with Pap) [employer] [facility] Start: 2005 DTaP/Tdap/Td vaccine (1 - Tdap) DTaP/Tdap/Td vaccine (1 - Tdap) [employer] [facility] Start: 2004 Hepatitis C screening Hepatitis C sc reen [facility] Start: 2001 HIV screening HIV screen [facility] Start: 1992 Pneumococcal 0-64 ye ars Vaccine (1 - PCV) Pneumococcal 0-64 years Vaccine (1 - PCV) [facility] Start: 1987 Varicella vaccine (1 of 2 - 2-dose childhood series) Varicella vaccine (1 of 2 - 2-dose childhood series) [facility] Start: 1986 COVID-19 Vaccine (#1) COVID-19 Vacci ne (#1) [facility] IGP, APTIMA HPV, RFX 16/18,45 ([facility]) IGP, APTIMA HPV, RFX 16/18,45 ([facility]) Lab Routine Cervical cancer screening Screening for HPV (human papillomavirus) Ordered: 05/15/2024 [facility] Work Phone: Comment on above: Ordered: 05/15/2024 End: 03-19-2022 XR RADIUS ULNA RIGHT (2 VIEWS) [facility] Work Phone: Comment on above: Once for 1 Occurrenc es starting 03/19/2022 until 03/19/2022 Payers Date Payer Category Payer Self-pay 2020 Unknown BCBS BCBS [id number] 2020-Present [phone] [address] [place] [address] [id number] 2019 [facility] [id number] 1985 Unknown [id number] 56 1985 Unknown [id number] 56 1986 Unknown [id number] 56 1986 Unknown [id number] 85 1986 Unknown [id number] 259 1986 Unknown [id number] 259 1986 Unknown [id number] 259 1986 Unknown [id number] 259 1986 Unknown [id number] 259 Unknown [id number] 31 Unknown [id number] 31 Social History Date Type Detail Facility Start: 03-19-2022 End: 05-15-2024 Tobacco smoking status [facility] Ex-smoker [facility] History of tobacco use Current smoker [facility] Phone: History of tobacco use Cigarette Smoker [facility] Phone: Start: 03-19-2022 End: 05-15-2024 Cigarettes smoked current (pack per day) - Reported 1 [facility] Phone: Start: 03-19-2022 End: 05-15-2024 Tobacco use and exposure Smokeless tobacco non-user [facility] Phone: Start: 03-19-2022 Alcohol intake 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) [facility] Phone: Start: 08-12-2020 History 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 5 [facility] Phone: Start: 08-12-2020 History SDOH Food Worry 1 [facility] Phone: Start: 1985 Sex Assigned At Not on file B [facility] [employer] Phone: Start: 03-09-2022 End: 03-19-2022 Exposure to SARS-CoV-2 (event) Not sure [facility] [employer] Phone: Start: 1985 Sex Assigned At Female F [place] Start: 05-14-2024 End: 05-15-2024 Alcoholic beverage intake Ex-drinker (finding) [facility] Start: 10-19-2023 End: 05-15-2024 Tobacco use panel [facility] Start: 09-04-2023 Alcohol Comment caffeine intak e: 2-3 cups per day Coffee [facility] Start: 09-07-2023 Tobacco smoking status NHIS Smokes tobacco daily [facility] NEGATED: Highlighted rowStart: NINF History of tobacco use Passive smoker [facility] Phone: History of Present illness Narrative 05-15-2024 Mahesh Zapata MD - 05/15/2024 2:45 PM EDT Note Date & Type Note Facility 05-15-2024 History of Presen t illness Narrative Images from the original note were not included. Mahesh Zapata MD Obstetrics and Gynecology Patient: Jayla Perla, : 1985 (38 y.o.) DOS 05/15/24 Exam Date: 05/15/2024 HPI: Yearly. Pt is is a same-sex marriage. She had been trying ov ind with IUI to conceive. This has been unsuccessful and abandoned. However, since stopping tx, her periods are monthly, reg, bleeds 1 d, but she cramps 3 weeks of the cycle Needs PAP. Colpo/Bx showed CHAS I 2 yrs ago Visit Vitals BP 122/78 Wt 175 lb LMP 04/29/2024 BMI 30.04 kg/m OB Status Having periods Smoking Status Former BSA 1.89 m OB History Para Term AB Living 0 0 0 0 0 0 SAB IAB Ectopic Multiple Live Births 0 0 0 0 0 Obstetric Comments Pap: 02/09-LSIL, HPV Neg Colpo: 03/11-CHAS I No control; every month, scant blood loss, LMP: 04/29/24 Medication and Allergies Medication Documentation Review Audit Reviewed by Angie Goode MA (Lap Machine Tender) on 05/15/24 at 1451 Medication Order Taking? Sig Documenting Provider Last Dose Status acetaminophen (Tylenol) 325 MG suppository [id number] No Insert into the rectum Michael Gail Leigh, DO Taking Active ibuprofen 200 MG tablet [id number] No Take by mouth Michael Leigh, DO Taking Active Allergies Allergen Reactions Avocado Anaphylaxis, Hives, Itching and Unknown Hydrocodone-Acetaminophen Rash Past Medical History: Diagnosis Date Abnormal Pap smear of cervix Arthritis Atypical nevus 06/2022 left chest, excised Tennis elbow Past Surgical History: Procedure Laterality Date HIP SURGERY Right 2017 [facility] OTHER SURGICAL HISTORY milk duct removal Physical Exam: Objective Physical Exam Constitutional: Appearance: Normal appearance. Genitourinary: Vulva normal. No vaginal discharge or bleeding. Right Adnexa: not palpable. Left Adnexa: not palpable. No cervical lesion. Uterus is tender. Uterus is not enlarged. Breasts: Right: Normal. Left: Normal. Pulmonary: Effort: Pulmonary effort is normal. Abdominal: Palpations: Abdomen is soft. Neurological: Mental Status: She is alert. Associated Treatments and Results - ICD-10-CM 1. Well woman exam with routine gynecological exam Z01.419 2. Cervical cancer screening Z12.4 IGP, APTIMA HPV, RFX 16/18,45 ([facility]) 3. Screening for HPV (human papillomavirus) Z11.51 IGP, APTIMA HPV, RFX 16/18,45 ([facility]) 4. Mild dysplasia of cervix (CHAS I) N87.0 5. Abdominal cramping R10.9 I suspect adenomyosis. Check sono Assessment/Plan Orders Placed This Encounter Procedures IGP, APTIMA HPV, RFX 16/18,45 ([facility]) Order Specific Question: Print requisition? Answer: No documented in this encounter [facility] Evaluation note Note Date & Type Note Facility Evaluation note Diagnosis Contusion of right forearm, initial encounter- Primary documented in this encounter [facility] [employer] Phone: Evaluation note Note Date & Type Note Facility Evaluation note No assessment information availa [facility] Work Phone: Evaluation note Note Date & Type Note Facility Evaluation note Diagnosis Well woman exam with routine gynecological exam Routine gynecological examination Cervical cancer screening Screening for malignant neoplasm of the cervix Screening for HPV (human papillomavirus) Special screening examination for human papillomavirus (HPV) Mild dysplasia of cervix (CHAS I) Mild dysplasia of cervix Abdominal cramping Abdominal pain, unspecified site documented in this encounter [facility] Hospital Discharge instructions Attachments Note Date & Type Note Facility Hospital Discharge instructions The following attachments cannot be sent through Care Everywhere.Contusion (Lebanese)documented in this encounter [facility] Work Phone: Summary Purpose Family History No Family History Records FoundNo Family History Records FoundNo Family History Records FoundNo Family History Records FoundNo Family History Records FoundNo Family History Records FoundNo Family History Records FoundNo Family History Records FoundNo Family History Records FoundNo Family History Records Found Advance Directives Advance Directive Response Recorded Date/ Time Advance Directives No May 24, 2022 11:14am Advance Directive Response Recorded Date/ Time Advance Directives No May 24, 2022 10:14am Chief Complaint and Reason for Visit Chief Complaint See order(s) Chief Complaint z32.01 Chief Complaint z32.01 Z32.00 Chief Complaint Lymphadenopathy, Z00 .00 Chief Complaint Lymphadenopathy, Z00 .00 bilateral axillary mass Additional Source Comments INFORMATION SOURCE (unrecogn ized section and content) DATE CREATED AUTHOR 02/14/2018 [facility] DATE CREATED AUTHOR AUTHOR'S ORGANIZ ATION 06/02/2018 [employer] DATE CREATED AUTHOR AUTHOR'S ORGANIZ ATION 06/16/2018 [facility] DATE CREATED AUTHOR AUTHOR'S ORGANIZ ATION 06/21/2018 [facility] DATE CREATED AUTHOR AUTHOR'S ORGANIZ ATION 10/15/2018 [facility] DATE CREATED AUTHOR AUTHOR'S ORGANIZ ATION 03/29/2019 [facility] DATE CREATED AUTHOR AUTHOR'S ORGANIZ ATION [facility] [place] DATE CREATED AUTHOR AUTHOR'S ORGANIZ ATION 03/22/2022 [facility] DATE CREATED AUTHOR AUTHOR'S ORGANIZ ATION 06/06/2024 [facility] d[facility] DATE CREATED AUTHOR AUTHOR'S ORGANIZ ATION 06/11/2024 [facility] Reason for Visit (unrecogniz ed section and content) Reason Comments Arm Injury Pt fell yesterday in to a wall and hit her rt forearm. Ordered Prescriptions (unrec ognized section and content) Prescription Sig Dispensed Refills Start Date End Da te meloxicam (MOBIC) 15 MG tablet Take 1 tablet by mouth daily as needed for Pain 90 tablet 1 03/19/2022 Scheduled Active and Recently Administ ered Medications (unrecognized section and content) Medication Order 03/17/2022 03/18/2022 03/19/2022 acetaminophen (TYLENOL) tablet 1,000 mg (COMPLETED) 1,000 mg, Oral, ONCE, 1 dose, On 03/19/22 at 1841, Maximum dose of acetaminophen is 4000 mg from all sources in 24 hours. 1856 (Given - Provid er: Diana Khan RN) ketorolac (TORADOL) injection 30 mg (COMPLETED) Ketorolac is contraindicated in patients with advanced renal impairment and in patients at risk of renal failure due to volume depletion. For 65 years of age and older OR weight less than 50 kg, use 15 mg IV every 6 hours; MAX dose: 60 mg/day. Dose greater than 30 mg must be administered via intramuscular route. Do not administer for more than 5 days., 30 mg, IntraMUSCular, ONCE, 1 dose, On 03/19/22 at 1841, Do not administer for more than 5 days. 1856 (Given - Provid er: Diana Khan RN) Care Teams (unrecognized sec tion and content) Team Status: Inactive Member Role Status Dates Saad Mcclain DO Primary Care Provider, Brooklynn blue Active Team Status: Active Member Role Status Dates Saad Mcclain , Primary Care Provider Active Team Status: Inactive Member Role Status Dates Saad Mcclain , Primary Care Provider Active Bharath Soto DO Attending Provider Active Mobile Home Installer Relationship Specialty Start Date End Date Saad Mcclain [address] [place] [address] PCP - General Family Medicine 09/07/23 Team Status: Inactive Member Role Status Dates Saad Bunting , DO Primary Care Provide r, Attending Provider Active Start: May 29, 2024 End: May 29, 2024 Team Status: Inactive Member Role Status Dates Saad Mcclain DO Primary Care Provide r, Attending Provider Active Start: June 06, 2024 End: June 06, 2024 Mobile Home Installer Relationship Specialty Start Date End Date Saad Mcclain [address] [place] [address] PCP - General Family Medicine 09/07/23 Mobile Home Installer Relationship Specialty Start Date End Date Saad Mcclain [address] [place] [address] PCP - General Family Medicine 09/07/23 Goals (unrecognized section and content) Goals may be documented in a n alternate sectionGoals may be documented in an alternate sectionGoals may be documented in an alternate sectionGoals may be documented in an alternate sectionGoals may be documented in an alternate section FOR RECORDS PERTAINING TO PATIENTS WHO ARE OR HAVE BEEN ENROLLED IN A CHEMICAL DEPENDENCY/SUBSTANCEABUSE PROGRAM, SOME INFORMATION MAY BE OMITTED. This clinical summary was aggregated from multiple sources. Caution should be exercised in using it in the provision of clinical care. This summary normalizes information from multiple sources, and as a consequence, information in this document may materially change the coding, format and clinical context of patient data. In addition, data may be omitted in some cases. CLINICAL DECISIONS SHOULD BE BASED ON THE PRIMARY CLINICAL RECORDS. [facility] [employer] [facility] provides no warranty or guarantee of the accuracy or completeness of information in this document.
== END 2024-11-25 11:43 | disposition home or self-care (01) ==
LOC: EC 11:43
PROVIDERS: PCP Family Medicine; Visit Provider Orthopaedic Surgery
DX: S69.91XD Unspecified injury of right wrist, hand and finger(s), subsequent encounter (principal)
CPT/HCPCS: 73110

== ENCOUNTER 2024-12-09 09:21 | Outpatient (OUT) | payer BC, SELFPAY ==
--- NOTE | 2024-12-09 09:24 | MR_ITS ---
[facility] [place] [id number] Patient Name: GÓMEZ MCRAE MRN: [id number] date: 1985 Sex: F Assigned Patient Location: MRI Current Patient Location: MRI Accession/Order Number: [id number] Exam Date: 12/09/2024 12:29 Report Date: 12/09/2024 16:32 At the request of: CLAUDINE KRAUS Procedure: MR wrist RT wo con MRI of the right wrist without contrast Routine technique HISTORY: Acute right wrist pain. Limited range of motion. Injury. COMPARISON: Plain film imaging 11/25/2024 appears demonstrates old ulnar styloid fracture. Old ulnar styloid fracture identified. No associated bone marrow edema. No acute bony contusion. No acute linear fracture seen. A triangle fibrocartilage intact. No joint effusion of the distal radial ulnar joint present. There is adequate bony alignment. No dislocation. No dissociation. No ligamentous disruption. No ganglion cyst. Tendons intact. No tenosynovitis. MR/MR wrist RT wo con IMPRESSION: Old ulnar styloid fracture. Intact the triangular fibrocartilage. No ligamentous disruption. Intact tendons. Impression dictated by: Luciano Stratton M.D.12/09/2024 4:32 PM Dictation Location: [place] [address] Electronically authenticated by: [id number] Y Date: 12/09/2024 16:32
--- OUTSIDE RECORDS SUMMARY | 2024-12-09 09:39 | XMS_ITS | CCD ---
Author Organization [facility] Care Team Providers Care Supervisor Beehive Kiln Name Role Phone DEANGELO MUKHERJEE Unavailable Unavailable [...] Unavailable Bunting, DO Saad Primary Care Provider [phone] Bunting, DO Saad Attending Provider [phone] Bunting, DO Saad Primary Care Provider DO Bharath Soto Attending Provider Bunting, DO Saad Primary Care Provider [phone] DO Bharath Soto Attending Provider Bunting, Saad R Primary Care Provider Bunting, DO Saad Primary Care Provider [phone] Bunting, DO Saad Attending Provider MICHAEL LEIGH [...] Translations: [HYDROCODONE-ACET AMINOPHEN] Drug Allergy 5 Rash [facility] Repository (6 sources) avocado oil; Translations: [AVOCADO] Drug Allergy 5 Other (See Comments), Anaphylaxis, Hives, Itching, Unknown [facility] Repository Medications Current Medications Medication Drug [...] US extremity nonvascularon 1 US extremity nonvascular [facility] [place] [address] [place] [address] Ultrasound Report Signed Patient: Jayla Perla MR#: [id number] : 1985 Acct:[id number] Age/Sex: 39 / F ADM Date: 06/06/24 Loc: [facility] Room: Type: [facility] Attending Dr: Saad Mcclain DO Ordering Provider: Saad Mcclain DO Date of Service: 06/06/24 US/US extremity nonvascular: BILATERAL AXILLARY MASS ([id number]) US/US extremity nonvascular: AXILLARY Copies to: Saad [...] Sri Ricci M.D.06/06/2024 8:36 AM Dictation Location: [facility] Tech: Jennifer Méndez Transcribed By: JAMIE 06/06/24835 Dictated By: Sri Ricci II, MD 06/06/24830 Signed By: 06/06/24835 Normal [facility] Alanine aminotransferase [En zymatic activity/volume] in Serum or PlasmaOrdered By: Saad Bunting on 05-29-2024 ALT [Catalytic activity/Vol] 9 U/L Normal 7-52 [facility] Comment on above: Performed By: #### C MP, CBC, LIPID, LDH #### [place] [address] [place] Albumin [Mass/volume] in Ser um or Plasma by Bromocresol green (BCG) dye binding methoOrdered By: Saad Bunting on 05-29-2024 Albumin BCG dye [Mass/Vol] 4.6 g/dL 3.5-5.7 [facility] Alkaline phosphatase [Enzyma tic activity/volume] in Serum or PlasmaOrdered By: Saad Bunting on 05-29-2024 ALP [Catalytic activity/Vol] 63 U/L Normal 34-104 [facility] Comment on above: Performed By: #### C MP, CBC, LIPID, LDH #### [facility] [address] [place] [address] Aspartate aminotransferase [ Enzymatic activity/volume] in Serum or PlasmaOrdered By: Saad Bunting on 05-29-2024 AST [Catalytic activity/Vol] 13 U/L Normal 13-39 [facility] Comment on above: Performed By: #### C MP, CBC, LIPID, LDH #### [facility] [address] [place] [address] Automated basophil %Ordered By: Saad Bunting on 05-29-2024 Basophils/100 WBC (Bld) 0.7 % Normal . [facility] Comment on above: Performed By: #### C MP, CBC, LIPID, LDH #### [facility] [address] [place] [address] [place] Automated basophil countOrde red By: Saad Bunting on 10-09-2024 Basophils (Bld) [#/Vol] 0.0 10*3/uL Normal 0.0-0.2 [facility] Comment on above: Result Comment: PERF ORMED BY: [place] [address] PATHOLOGIST [employer]ISH[employer] RENE VALENZUELA M.D. Performed By: #### C MP, CBC, LIPID, LDH #### [address] Automated blood monocyte cou ntOrdered By: Saad Bunting on 05-29-2024 Monocytes (Bld) [#/Vol] 0.4 10*3/uL Normal 0.0-0.8 [facility] Comment on above: Performed By: #### C MP, CBC, LIPID, LDH #### [address] Automated eosinophil %Ordere d By: Saad Bunting on 05-29-2024 Eosinophils/100 WBC (Bld) 1.9 % Normal . [facility] Comment on above: Performed By: #### C MP, CBC, LIPID, LDH #### [address] Automated eosinophil countOr dered By: Saad Bunting on 05-29-2024 Eosinophils (Bld) [#/Vol] 0.1 10*3/uL Normal 0.0-0.45 [facility] Comment on above: Performed By: #### C MP, CBC, LIPID, LDH #### [address] Automated monocyte %Ordered By: Saad Bunting on 05-29-2024 Monocytes/100 WBC (Bld) 5.1 % Normal . [facility] Comment on above: Performed By: #### C MP, CBC, LIPID, LDH #### [address] Automated neutrophil %Ordere d By: Saad Bunting on 05-29-2024 Neutrophils/100 WBC (Bld) 60.9 % Normal . [facility] Comment on above: Performed By: #### C MP, CBC, LIPID, LDH #### [facility] [address] [place] [address] [place] Bilirubin.total [Mass/volume ] in Serum or PlasmaOrdered By: Saad Bunting on 05-29-2024 Bilirubin [Mass/Vol] 0.6 mg/dL Normal 0.3-1.0 [facility] Comment on above: Performed By: #### C MP, CBC, LIPID, LDH #### [facility] [address] [place] [address] [place] Calcium [Mass/volume] in Ser um or PlasmaOrdered By: Saad Bunting on 05-29-2024 Calcium [Mass/Vol] 9.4 mg/dL Normal 8.6-10.3 [facility] Comment on above: Performed By: #### C MP, CBC, LIPID, LDH #### [facility] [address] Carbon dioxide, total [Moles /volume] in Serum or PlasmaOrdered By: Saad Bunting on 05-29-2024 CO2 [Moles/Vol] 23.8 mmol/L Normal 21.0-31.0 [facility] Comment on above: Performed By: #### C MP, CBC, LIPID, LDH #### [facility] [address] [place] [address] [place] Chloride [Moles/volume] in S nidhi or PlasmaOrdered By: Saad Bunting on 05-29-2024 Chloride [Moles/Vol] 107 mmol/L Normal 98-107 [facility] Comment on above: Performed By: #### C MP, CBC, LIPID, LDH #### [facility] [address] [place] [address] [place] Cholesterol [Mass/volume] in Serum or PlasmaOrdered By: Saad Bunting on 05-29-2024 Cholesterol [Mass/Vol] 204 mg/dL High 140-200 [facility] Comment on above: Chol less than 200 m g/dl low riskChol 201-239 mg/dl borderline riskChol 240 mg/dl and greater high risk Result Comment: Chol less than 200 mg/dl low risk Chol 201-239 mg/dl borderline risk Chol 240 mg/dl and greater high risk Performed By: #### C MP, CBC, LIPID, LDH #### [address] Cholesterol in LDL Calc [Mas s/Vol]Ordered By: Saad Mcclain on 05-29-2024 Cholesterol in LDL [Mass/Vol] 127 mg/dL High 0-100 [facility] Comment on above: LDL ATP III CLASSIFI CATIONLDL less than 100 mg/dL OptimalLDL 100-129 mg/dL Near or above optimalLDL 130-159 mg/dL Borderline highLDL 160-189 mg/dL HighLDL greater than 189 mg/dL Very high Cholesterol in VLDL Calc [Ma ss/Vol]Ordered By: Saad Mcclain on 05-29-2024 Cholesterol in VLDL [Mass/Vol] 32 mg/dL [facility] Complete Blood Count Auto Di ffon 05-29-2024 Mean Corpuscular HGB Conc 33.8 g/dL Normal 32.0-35.0 [facility] Comment on above: Performed By: #### C MP, CBC, LIPID, LDH #### [address] NRBC% 0.1 /100{WBC} Normal 0-0.5 [facility] Comment on above: Performed By: #### C MP, CBC, LIPID, LDH #### [address] Comprehensive Metabolic Pane aurora 05-29-2024 Albumin [Mass/Vol] 4.6 g/dL Normal 3.5-5.7 [facility] Comment on above: Performed By: #### C MP, CBC, LIPID, LDH #### [place] [address] [place] GFR/1.73 sq M.predicted MDRD (S/P/Bld) [Vol rate/Area] mL/min/{1.73_m2} Normal [facility] Comment on above: Performed By: #### C MP, CBC, LIPID, LDH #### [address] Creatinine [Mass/volume] in Serum or PlasmaOrdered By: Saad Mcclain on 05-29-2024 Creatinine [Mass/Vol] 0.73 mg/dL Normal 0.60-1.20 [facility] Comment on above: Performed By: #### C MP, CBC, LIPID, LDH #### [facility] [address] Erythrocyte distribution wid th [Ratio] by Automated countOrdered By: Saad Mcclain on 05-29-2024 Erythrocyte distribution width (RBC) [Ratio] 13.5 % Normal 11.9-15.3 [facility] Comment on above: Performed By: #### C MP, CBC, LIPID, LDH #### [address] Erythrocytes [#/volume] in B lood by Automated countOrdered By: Saad Mcclain on 05-29-2024 RBC (Bld) [#/Vol] 4.57 10*6/uL Normal 3.60-5.00 [facility] Comment on above: Performed By: #### C MP, CBC, LIPID, LDH #### [address] Glucose [Mass/volume] in Ser um or PlasmaOrdered By: Saad Mcclain on 05-29-2024 Glucose [Mass/Vol] 93 mg/dL Normal 70-100 [facility] Comment on above: ADA recommended refe rence rangeRandom Glucose Reference Range is dependent on time and content of last meal. Glucose of more than 200 mg/dL in a nonstressed, ambulatory subject supports the diagnosis of Diabetes Mellitus. Result Comment: [place] om Glucose Reference Range is dependent on time and content of last meal. Glucose of more than 200 mg/dL in a nonstressed, ambulatory subject supports the diagnosis of Diabetes Mellitus. ADA recommended reference range Performed By: #### C MP, CBC, LIPID, LDH #### [address] Hematocrit [Volume Fraction] of Blood by Automated countOrdered By: Saad Mcclain on 05-29-2024 Hematocrit (Bld) [Volume fraction] 40.2 % Normal 34.0-46.4 [facility] Comment on above: Performed By: #### C MP, CBC, LIPID, LDH #### [facility] [address] Hemoglobin [Mass/volume] in BloodOrdered By: Saad Mcclain on 05-29-2024 Hemoglobin (Bld) [Mass/Vol] 13.6 g/dL Normal 11.8-15.4 [facility] Comment on above: Performed By: #### C MP, CBC, LIPID, LDH #### [facility] [address] LDH Lactate Dehydrogenaseon 05-29-2024 LDH Lactate Dehydrogenase 117 U/L Low 140-271 [facility] Comment on above: Performed By: #### C MP, CBC, LIPID, LDH #### [facility] [address] Lactate dehydrogenase [Enzym atic activity/volume] in Serum or Plasma by Lactate to pyOrdered By: Saad Mcclain on 05-29-2024 LDH Lactate to pyruvate reaction [Catalytic activity/Vol] 117 U/L Low 140-271 [facility] Leukocytes [#/volume] correc peggy for nucleated erythrocytes in Blood by Automated counOrdered By: Saad Mcclain on 05-29-2024 WBC corrected for nucl RBC Auto (Bld) [#/Vol] 6.9 10*3/uL 3.8-11.6 [facility] Leukocytes [#/volume] in Blo od by Automated countOrdered By: Saad Mcclain on 05-29-2024 WBC (Bld) [#/Vol] 6.9 10*3/uL Normal 3.8-11.6 [facility] Comment on above: Performed By: #### C MP, CBC, LIPID, LDH #### [facility] [address] Lipid Panelon 05-29-2024 LDL Cholesterol,Calculate d 127 mg/dL High 0-100 [facility] Comment on above: Result Comment: LDL ATP III CLASSIFICATION LDL less than 100 mg/dL Optimal LDL 100-129 mg/dL Near or above optimal LDL 130-159 mg/dL Borderline high LDL 160-189 mg/dL High LDL greater than 189 mg/dL Very high Performed By: #### C MP, CBC, LIPID, LDH #### [address] Triglyceride w/Reflex 164 mg/dL High 0-149 [facility] Comment on above: Result Comment: TRIG ATP III CLASSIFICATION TRIG less than 150 mg/dL Normal TRIG 150-199 mg/dL Borderline high TRIG 200-500 mg/dL High TRIG greater than 500 mg/dL Very high Standard traceable to the Center for Disease Conrtrol and Prevention (CDC) test method. Performed By: #### C MP, CBC, LIPID, LDH #### [address] VLDL CHOLESTEROL 32 mg/dL Normal [facility] Comment on above: Performed By: #### C MP, CBC, LIPID, LDH #### [address] Lymphocytes [#/volume] in Bl ood by Automated countOrdered By: Saad Bunting on 05-29-2024 Lymphocytes (Bld) [#/Vol] 2.2 10*3/uL Normal 1.00-4.8 [facility] Comment on above: Performed By: #### C MP, CBC, LIPID, LDH #### [address] Lymphocytes/100 leukocytes i n Blood by Automated countOrdered By: Saad Bunting on 05-29-2024 Lymphocytes/100 WBC (Bld) 31.4 % Normal . [facility] Comment on above: Performed By: #### C MP, CBC, LIPID, LDH #### [address] MCH [Entitic mass] by Automa peggy countOrdered By: Saad Bunting on 05-29-2024 MCH (RBC) [Entitic mass] 29.7 pg Normal 24.7-34.3 [facility] Comment on above: Performed By: #### C MP, CBC, LIPID, LDH #### [address] MCHC Auto (RBC) [Mass/Vol]Or dered By: Saad Bunting on 05-29-2024 MCHC (RBC) [Mass/Vol] 33.8 g/dL 32.0-35.0 [facility] MCV [Entitic volume] by Auto mated countOrdered By: Saad Bunting on 05-29-2024 MCV (RBC) [Entitic vol] 87.9 fL Normal 80-100 [facility] Comment on above: Performed By: #### C MP, CBC, LIPID, LDH #### [address] [place] 05-29-2024 Monotest Negative Normal Negative [facility] Comment on above: Result Comment: PERF ORMED BY: [place] [address] PATHOLOGIST [employer]ISH[employer] HAND RENE VALENZUELA M.D. Performed By: #### M ONOTEST #### [address] Neutrophils [#/volume] in Bl ood by Automated countOrdered By: Saad Bunting on 05-29-2024 Neutrophils (Bld) [#/Vol] 4.2 10*3/uL Normal 1.8-7.7 [facility] Comment on above: Performed By: #### C MP, CBC, LIPID, LDH #### [address] No Panel InformationOrdered By: Saad Bunting on 05-29-2024 Estimated GFR (CKD-EPI) > 60.0 mL/Min [facility] Creatinine Clearance (Chem N/A [facility] Nucleated erythrocytes [Pres ence] in Blood by Automated countOrdered By: Saad Bunting on 05-29-2024 Nucleated RBC Auto Ql (Bld) 0.1 /100{WBC} 0-0.5 [facility] Platelet mean volume [Entiti c volume] in Blood by Automated countOrdered By: Saad Bunting on 05-29-2024 Platelet mean volume (Bld) [Entitic vol] 8.4 fL Normal 6.3-10.7 [facility] Comment on above: Performed By: #### C MP, CBC, LIPID, LDH #### [address] Platelets [#/volume] in Bloo d by Automated countOrdered By: Saad Bunting on 05-29-2024 Platelets (Bld) [#/Vol] 304 10*3/uL Normal 150-450 [facility] Comment on above: Performed By: #### C MP, CBC, LIPID, LDH #### [address] Potassium [Moles/volume] in Serum or PlasmaOrdered By: Saad Bunting on 05-29-2024 Potassium [Moles/Vol] 4.0 mmol/L Normal 3.5-5.1 [facility] Comment on above: Performed By: #### C MP, CBC, LIPID, LDH #### [address] Protein [Mass/volume] in Ser um or PlasmaOrdered By: Saad Bunting on 05-29-2024 Protein [Mass/Vol] 7.1 g/dL Normal 6.4-8.9 [facility] Comment on above: Performed By: #### C MP, CBC, LIPID, LDH #### [address] Serum globulin measurement b y calculation (mass/volume)Ordered By: Saad Bunting on 05-29-2024 Globulin (S) [Mass/Vol] 2.5 g/dL Normal [facility] Comment on above: Performed By: #### C MP, CBC, LIPID, LDH #### [address] Serum heterophile antibody d etection by latex agglutinationOrdered By: Saad Bunting on 05-29-2024 Heterophile Ab LA Ql (S) Negative Negative [facility] Serum or plasma albumin/glob ulin mass ratioOrdered By: Saad Bunting on 05-29-2024 Albumin/Globulin [Mass ratio] 1.8 {ratio} Normal [facility] Comment on above: Performed By: #### C MP, CBC, LIPID, LDH #### [address] [place] [address] [place] Serum or plasma anion gap de terminationOrdered By: Saad Bunting on 05-29-2024 Anion gap [Moles/Vol] 11.2 mmol/L Normal 6.0-15.0 [facility] Comment on above: Performed By: #### C MP, CBC, LIPID, LDH #### [address] Serum or plasma high density lipoprotein (HDL) cholesterol measurementOrdered By: Saad Bunting on 05-29-2024 Cholesterol in HDL [Mass/Vol] 44 mg/dL Normal 23-92 [facility] Comment on above: HDL CHOL ATP-III CLA SSIFICATION Cardiovascular RiskHDL > or equal to 60 mg/dL LOWHDL < 40 mg/dL HIGH Result Comment: HDL CHOL ATP-III CLASSIFICATION Cardiovascular Risk HDL > or equal to 60 mg/dL LOW HDL < 40 mg/dL HIGH Performed By: #### C MP, CBC, LIPID, LDH #### [address] Serum or plasma total choles terol/high density lipoprotein (HDL) cholesterol mass ratOrdered By: Sada Bunting on 05-29-2024 Cholesterol.total/Cho lesterol in HDL [Mass ratio] 4.6 {ratio} Normal <5.0 [facility] Comment on above: Result Comment: PERF ORMED BY: [place] [address] PATHOLOGIST [employer]ISH[employer] HAND RENE VALENZUELA M.D. Performed By: #### C MP, CBC, LIPID, LDH #### [address] Sodium [Moles/volume] in Ser um or PlasmaOrdered By: Saad Bunting on 05-29-2024 Sodium [Moles/Vol] 138 mmol/L Normal 136-145 [facility] Comment on above: Performed By: #### C MP, CBC, LIPID, LDH #### [address] Triglyceride [Mass/volume] i n Serum or PlasmaOrdered By: Saad Bunting on 05-29-2024 Triglyceride [Mass/Vol] 164 mg/dL High 0-149 [facility] Comment on above: TRIG ATP III CLASSIF ICATIONTRIG less than 150 mg/dL NormalTRIG 150-199 mg/dL Borderline highTRIG 200-500 mg/dL High TRIG greater than 500 mg/dL Very highStandard traceable to the Center for Disease Conrtrol and Prevention (CDC) test method. Urea nitrogen [Mass/volume] in Serum or PlasmaOrdered By: Saad Mcclain on 05-29-2024 Urea nitrogen [Mass/Vol] 13 mg/dL Normal 7-25 [facility] Comment on above: Performed By: #### C MP, CBC, LIPID, LDH #### [facility] [address] Image-guided pap and hpv mrn a e6/e7 reflex genotypes 16, 18/45on 05-21-2024 [employer] Cyto stain Nom (Cvx/Vag) [ID] Comment [facility] Comment on above: Mynor ramesh, Manager Public (ASCP) Cytology report Cyto stain Doc (Cvx/Vag) Comment Abnormal [facility] Comment on above: EPITHELIAL CELL ABNO RMALITY. LOW-GRADE SQUAMOUS INTRAEPITHELIAL LESION (LSIL); (ENCOMPASSING HUMAN PAPILLOMAVIRUS /MILD DYSPLASIA/CIN1). Cytology report Cyto stain.thin prep Doc (Cvx/Vag) Comment [facility] Comment on above: This liquid based Th inPrep(R) pap test was screened with the use of an image guided system. HPV 16+18+31+33+35+39+45+ 51+52+56+58+59+66+68 DNA Probe+sig amp Ql (Cvx) Negative Negative [facility] Comment on above: This nucleic acid am plification test detects fourteen high- risk HPV types (16,18,31,33,35,39,45,51,52,56,58,59,66,68) without differentiation. HPV Genotype Reflex Comment [facility] Comment on above: Criteria not met, HP V Genotype not performed. Interpretation and review of laboratory results Abnormal [facility] Microscopic observation Other stain Nom (Unsp spec) . [facility] Note: Comment [facility] Comment on above: The Pap smear is a s creening test designed to aid in the detection of premalignant and malignant conditions of the uterine cervix. It is not a diagnostic procedure and should not be used as the sole means of detecting cervical cancer. Both false-positive and false-negative reports do occur. Pathologist Cyto stain Nom (Cvx/Vag) [ID] Comment [facility] Comment on above: Evelia Moran MD, Pa thologist Recommended follow-up Cyto stain Nom (Cvx/Vag) Comment Abnormal [facility] Comment on above: Suggest follow up as clinically appropriate. Statement of adequacy Cyto stain (Cvx/Vag) [Interp] Comment [facility] Comment on above: Satisfactory for wandy luation. Endocervical and/or squamous metaplastic cells (endocervical component) are present. Performed at: - [facility] [address] [id number] Optometry Doctor: Ashley Ladd MD, Phone: [phone] Performed at: - [facility] [id number] Optometry Doctor: Ashley Ladd MD, Phone: [phone] Specimen Comment: No. of containers..01 ThinPrep Vial [facility] No Panel Informationon 05-21 Diagnosis ICD code [Identifier] Comment [facility] Comment on above: Z12.4 Z11.51 R87.612 Choriogonadotropin.beta subu nit [Units/volume] in Serum or PlasmaOrdered By: Bharath Soto on 11-02-2022 HCG.beta subunit Qn m[IU]/mL [facility] Comment on above: Approximate Approxim ate hCG Gestational Age Range (mIU/ml) (weeks)0.2-1 5-50 1-2 50-500 2-3 100-5,000 3-4 500-10,000 4-5 1,000-50,000 5-6 10,000-100,000 6-8 15,000-200,000 8-12 10,000-100,000 Choriogonadotropin.beta subu nit [Units/volume] in Serum or PlasmaOrdered By: Bharath Soto on 10-04-2022 HCG.beta subunit Qn 1.01 m[IU]/mL [facility] Comment on above: Approximate Approxim ate hCG Gestational Age Range (mIU/ml) (weeks)0.2-1 5-50 1-2 50-500 2-3 100-5,000 3-4 500-10,000 4-5 1,000-50,000 5-6 10,000-100,000 6-8 15,000-200,000 8-12 10,000-100,000 Albumin [Mass/volume] in Ser um or PlasmaOrdered By: Saad Mcclain on 05-25-2022 Albumin [Mass/Vol] 4.0 g/dL 3.2-5.5 [facility] Cholesterol [Mass/volume] in Serum or PlasmaOrdered By: Saad Mcclain on 05-25-2022 Cholesterol [Mass/Vol] 215 mg/dL 140-200 [facility] Comment on above: Chol less than 200 m g/dl low riskChol 201-239 mg/dl borderline riskChol 240 mg/dl and greater high risk Cholesterol in LDL Calc [Mas s/Vol]Ordered By: Saad Mcclain on 05-25-2022 Cholesterol in LDL [Mass/Vol] 131 mg/dL 0-100 [facility] Comment on above: LDL ATP III CLASSIFI CATIONLDL less than 100 mg/dL OptimalLDL 100-129 mg/dL Near or above optimalLDL 130-159 mg/dL Borderline highLDL 160-189 mg/dL HighLDL greater than 189 mg/dL Very high Cholesterol in VLDL Calc [Ma ss/Vol]Ordered By: Saad Mcclain on 05-25-2022 Cholesterol in VLDL [Mass/Vol] 32 mg/dL [facility] Creatinine and Glomerular fi ltration rate.predicted panel (S/P/Bld)Ordered By: Saad Mcclain on 05-25-2022 Creatinine [Mass/Vol] 0.73 mg/dL 0.44-1.03 [facility] Estimated glomerular filtrat ion rate (GFR) non- AmericanOrdered By: Saad Mcclain on 05-25-2022 GFR/1.73 sq M.predicted among non-blacks MDRD (S/P/Bld) [Vol rate/Area] > 60 mL/Min [facility] Globulin Calc (S) [Mass/Vol] Ordered By: Saad Mcclain on 05-25-2022 Globulin (S) [Mass/Vol] 2.9 g/dL [facility] No Panel InformationOrdered By: Saad Mcclain on 05-25-2022 Estimated GFR () > 60 mL/Min [facility] Comment on above: GFR estimated refere nce range: According to KDOQI guidelines, <60 ml/min/1.73m2 is sufficient to diagnose a patient with chronic kidney disease. Pharmacy Creatinine Clearance (Chem N/A [facility] Protein [Mass/volume] in Ser um or PlasmaOrdered By: Saad Mcclain on 05-25-2022 Protein [Mass/Vol] 6.9 g/dL 6.1-7.9 [facility] Serum or plasma alanine jean-baptiste otransferase measurement without P-5'-P (enzymatic activiOrdered By: Saad Mcclain on 05-25-2022 ALT No additional P-5'-P [Catalytic activity/Vol] 17 U/L 1060 [facility] Serum or plasma albumin/glob ulin mass ratioOrdered By: Saad Mcclain on 05-25-2022 Albumin/Globulin [Mass ratio] 1.4 {ratio} [facility] Serum or plasma alkaline elbert sphatase measurement (enzymatic activity/volume)Ordered By: Saad Mcclain on 05-25-2022 ALP [Catalytic activity/Vol] 69 U/L 32-92 [facility] Serum or plasma anion gap de terminationOrdered By: Saad Mcclain on 05-25-2022 Anion gap [Moles/Vol] 13.5 mmol/L 6.0-15.0 [facility] Serum or plasma aspartate am inotransferase measurement (enzymatic activity/volume)Ordered By: Saad Mcclain on 05-25-2022 AST [Catalytic activity/Vol] 21 U/L 10-42 [facility] Serum or plasma calcium brandin urement (mass/volume)Ordered By: Saad Mcclain on 05-25-2022 Calcium [Mass/Vol] 9.5 mg/dL 8.2-10.2 [facility] Serum or plasma chloride anthony surement (moles/volume)Ordered By: Saad Mcclain on 05-25-2022 Chloride [Moles/Vol] 103 mmol/L 95-114 [facility] Serum or plasma glucose brandin urement (mass/volume)Ordered By: Saad Mcclain on 05-25-2022 Glucose [Mass/Vol] 79 mg/dL 70-100 [facility] Comment on above: ADA recommended refe rence rangeRandom Glucose Reference Range is dependent on time and content of last meal. Glucose of more than 200 mg/dL in a nonstressed, ambulatory subject supports the diagnosis of Diabetes Mellitus. Serum or plasma high density lipoprotein (HDL) cholesterol measurementOrdered By: Saad Mcclain on 05-25-2022 Cholesterol in HDL [Mass/Vol] 51 mg/dL 35-85 [facility] Comment on above: HDL CHOL ATP-III CLA SSIFICATION Cardiovascular RiskHDL > or equal to 60 mg/dL LOWHDL < 40 mg/dL HIGH Serum or plasma potassium me asurement (moles/volume)Ordered By: Saad Mcclain on 05-25-2022 Potassium [Moles/Vol] 4.0 mmol/L 3.5-5.1 [facility] Serum or plasma sodium measu rement (moles/volume)Ordered By: Saad Mcclain on 05-25-2022 Sodium [Moles/Vol] 137 mmol/L 136-146 [facility] Serum or plasma total biliru bin measurement (mass/volume)Ordered By: Saad Mcclain on 05-25-2022 Bilirubin [Mass/Vol] 0.8 mg/dL 0.3-1.2 [facility] Serum or plasma total carbon dioxide measurement (moles/volume)Ordered By: Saad Mcclain on 05-25-2022 CO2 [Moles/Vol] 24.5 mmol/L 22.0-30.0 [facility] Serum or plasma total choles terol/high density lipoprotein (HDL) cholesterol mass ratOrdered By: Saad Mcclain on 05-25-2022 Cholesterol.total/Cho lesterol in HDL [Mass ratio] 4.2 {ratio} <5.0 [facility] Serum or plasma urea nitroge n measurement (mass/volume)Ordered By: Saad Mcclain on 05-25-2022 Urea nitrogen [Mass/Vol] 9 mg/dL 9- [facility] Triglyceride [Mass/volume] i n Serum or PlasmaOrdered By: Saad Mcclain on 05-25-2022 Triglyceride [Mass/Vol] 163 mg/dL 35-149 [facility] Comment on above: TRIG ATP III [...] Flavio Phipps DO 03/20/22 Final result Normal [facility] CBC With Platelet and Differ entialon 08-12-2020 Basophils (Bld) [#/Vol] 0.0 10*3/uL Normal 0.0-0.2 [facility] Comment on above: Performed By: #### C BCWD #### [facility] [address] [place] [address] Basophils/100 WBC (Bld) 0.5 % Normal [facility] Comment on above: Performed By: #### C BCWD #### [facility] [address] [place] [address] Eosinophils (Bld) [#/Vol] 0.2 10*3/uL Normal 0.0-0.7 [facility] Comment on above: Performed By: #### C BCWD #### [facility] [address] [place] [address] Eosinophils/100 WBC (Bld) 2.1 % Normal [facility] Comment on above: Performed By: #### C BCWD #### [facility] [address] [place] [address] Erythrocyte distribution width (RBC) [Ratio] 14.3 % Normal 11.5-14.5 [facility] Comment on above: Performed By: #### C BCWD #### [facility] [address] [place] [address] Hematocrit (Bld) [Volume fraction] 41.5 % Normal 37.0-47.0 [facility] Comment on above: Performed By: #### C BCWD #### [facility] [address] [place] [address] Hemoglobin (Bld) [Mass/Vol] 13.8 g/dL Normal 12.0-16.0 [facility] Comment on above: Performed By: #### C BCWD #### [facility] [address] [place] [address] Lymphocytes (Bld) [#/Vol] 2.0 10*3/uL Normal 1.0-4.8 [facility] Comment on above: Performed By: #### C BCWD #### [facility] [address] [place] [address] Lymphocytes/100 WBC (Bld) 24.9 % Normal [facility] Comment on above: Performed By: #### C BCWD #### [facility] [address] [place] [address] MCH (RBC) [Entitic mass] 29.9 pg Normal 27.0-31.3 [facility] Comment on above: Performed By: #### C BCWD #### [facility] [address] [place] [address] MCHC (RBC) [Mass/Vol] 33.2 % Normal 33.0-37.0 [facility] Comment on above: Performed By: #### C BCWD #### [facility] [address] [place] [address] MCV (RBC) [Entitic vol] 90.2 fL Normal 82.0-100.0 [facility] Comment on above: Performed By: #### C BCWD #### [facility] [address] [place] [address] Monocytes (Bld) [#/Vol] 0.4 10*3/uL Normal 0.2-0.8 [facility] Comment on above: Performed By: #### C BCWD #### [facility] [address] [place] [address] Monocytes/100 WBC (Bld) 4.5 % Normal [facility] Comment on above: Performed By: #### C BCWD #### [facility] [address] [place] [address] Neutrophils (Bld) [#/Vol] 5.5 10*3/uL Normal 1.4-6.5 [facility] Comment on above: Performed By: #### C BCWD #### [facility] [address] [place] [address] Neutrophils/100 WBC (Bld) 68.0 % Normal [facility] Comment on above: Performed By: #### C BCWD #### [facility] [address] [place] [address] Platelets (Bld) [#/Vol] 292 10*3/uL Normal 130-400 [facility] Comment on above: Performed By: #### C BCWD #### [facility] [address] [place] [address] RBC (Bld) [#/Vol] 4.60 10*6/uL Normal 4.20-5.40 [facility] Comment on above: Performed By: #### C BCWD #### [facility] [address] [place] [address] WBC (Bld) [#/Vol] 8.1 10*3/uL Normal 4.8-10.8 [facility] Comment on above: Performed By: #### C BCWD #### [facility] [address] [place] [address] Comprehensive Metabolic Pane [place] 08-12-2020 Albumin [Mass/Vol] 4.8 g/dL Critically high 3.5-4.6 [facility] Comment on above: Performed By: #### C MP #### [facility] [address] [place] [address] ALP [Catalytic activity/Vol] 87 U/L Normal 40-130 [facility] Comment on above: Performed By: #### C MP #### [facility] [address] [place] [address] ALT [Catalytic activity/Vol] 8 U/L Normal 0-33 [facility] Comment on above: Performed By: #### C MP #### [facility] [address] [place] [address] Anion gap [Moles/Vol] 11 mmol/L Normal 9-15 [facility] Comment on above: Performed By: #### C MP #### [facility] [address] [place] [address] AST [Catalytic activity/Vol] 20 U/L Normal 0-35 [facility] Comment on above: Performed By: #### C MP #### [facility] [address] [place] [address] Bilirubin [Mass/Vol] 0.5 mg/dL Normal 0.2-0.7 [facility] Comment on above: Performed By: #### C MP #### [facility] [address] [place] [address] Calcium [Mass/Vol] 9.4 mg/dL Normal 8.5-9.9 [facility] Comment on above: Performed By: #### C MP #### [facility] [address] [place] [address] Chloride [Moles/Vol] 103 mmol/L Normal 95-107 [facility] Comment on above: Performed By: #### C MP #### [facility] [address] [place] [address] CO2 [Moles/Vol] 23 mmol/L Normal 20-31 [facility] Comment on above: Performed By: #### C MP #### [facility] [address] [place] [address] Creatinine [Mass/Vol] 0.60 mg/dL Normal 0.50-0.90 [facility] Comment on above: Performed By: #### C MP #### [facility] [address] [place] [address] GFR/1.73 sq M predicted among blacks MDRD (S/P/Bld) [Vol rate/Area] mL/min/{1.73_m2} Normal >60 [facility] Comment on above: Result Comment: >60 mL/min/1.73m2 EGFR, calc. for ages 18 and older using the MDRD formula (not corrected for weight), is valid for stable renal function. Performed By: #### C MP #### [facility] [address] [place] [address] GFR/1.73 sq M.predicted MDRD (S/P/Bld) [Vol rate/Area] mL/min/{1.73_m2} Normal >60 [facility] Comment on above: Result Comment: >60 mL/min/1.73m2 EGFR, calc. for ages 18 and older using the MDRD formula (not corrected for weight), is valid for stable renal function. Performed By: #### C MP #### [facility] [address] [place] [address] Globulin (S) [Mass/Vol] 2.4 g/dL Normal 2.3-3.5 [facility] Comment on above: Performed By: #### C MP #### [facility] [address] [place] [address] Glucose [Mass/Vol] 89 mg/dL Normal 70-99 [facility] Comment on above: Performed By: #### C MP #### [facility] [address] [place] [address] Potassium [Moles/Vol] 4.4 mmol/L Normal 3.4-4.9 [facility] Comment on above: Performed By: #### C MP #### [facility] [address] [place] [address] Protein [Mass/Vol] 7.2 g/dL Normal 6.3-8.0 [facility] Comment on above: Performed By: #### C MP #### [facility] [address] [place] [address] Sodium [Moles/Vol] 137 mmol/L Normal 135-144 [facility] Comment on above: Performed By: #### C MP #### [facility] [address] [place] [address] Urea nitrogen [Mass/Vol] 7 mg/dL Normal 6-20 [facility] Comment on above: Performed By: #### C MP #### [facility] [address] [place] [address] Lipid Panelon 08-12-2020 Cholesterol [Mass/Vol] 198 mg/dL Normal 0-199 [facility] Comment on above: Result Comment: ATP III Cholesterol classification is Desirable. Performed By: #### L IPID #### [facility] [address] [place] [address] Cholesterol in HDL [Mass/Vol] 43 mg/dL Normal 40-59 [facility] Comment on above: Result Comment: ATP III [...] CHD Performed By: #### L IPID #### [facility] [address] [place] [address] Cholesterol in LDL [Mass/Vol] 117 mg/dL Normal 0-129 [facility] Comment on above: Result Comment: ATP III LDL Classification is Near Optimal. Performed By: #### L IPID #### [facility] [address] [place] [address] Triglyceride [Mass/Vol] 191 mg/dL Critically high 0-150 [facility] Comment on above: Result Comment: ATP III Triglycerides Classification is Borderline High. Performed By: #### L IPID #### [facility] [address] [place] [address] MRI LUMBAR SPINE WO IVCONon 11-22-2018 MRI [...] crest and there are 5 lumbar-type vertebrae. Cork Cutter: PSCBeck Transcribe Date/Time: Nov 22 2018 4:20P Dictated by : DELORIS RAM MD This examination was interpreted and the report reviewed and electronically signed by: DELORIS RAM MD on Nov 22 2018 4:35PM EST [id number] Normal [facility] PROGRESSon 11-22-2018 PROGRESS HNO ID: [id number] Author: Jose Armando Perdue [place] Service: ? Author Type: ? Type: Progress [...] Not applicable SIGNED BY: Jose Armando Perdue [place] November 22, 2018 3:49 PM Normal [facility] CNOVon 11-08-2018 CNOV Office Visit (PAINLN ) JAYLA PERLA ([id number]) 1985 F Date Time Provider Department 11/08/18 [...] supervised home exercise program (HEP): No 5. Dike Supervisor: No Passive conservative therapy lasting 6 weeks [...] > 1 time per night or hematuria MOTOR GRADER ROUGH GRADE: Negative for abnormal vaginal bleeding, abnormal vaginal [...] HISTORY OF 07/28/2015 left breast ductotomy EXAMINATION: [id number]: Scoliosis: No Pelvic Tilt: No Leg Length [...] Suraj Danielson MD Referring Provider: CHUYITA CLAY [[id number]] Allergies As of Date: 11/08/2018 Noted Allergy Reaction AVOCADO 07/27/2015 16 - Unknown VICODIN (HYDROCODONE-ACETAMINOPHE* 2 - Rash Date Reviewed: 11/08/2018 Reviewed by: Deb Hsu Ma - Fully Assessed Reason for Visit: Low Back Pain [126] rt hip pain [Other] Visit Diagnosis:Chronic bilateral low back pain without sciatica [M54.5, G89.29] Order(s):MRI LUMBAR SPINE WO IVCON [[id number]] Order #: [id number] FUTURE Prescriptions as of 11/08/2018 Sig: FLEXERIL [...] by SURAJ DANIELSON MD on 11/25/18 Normal [facility] PROGRESSon 11-08-2018 PROGRESS HNO ID: [id number] Author: Suraj Danielson Service: ? Author Type: [...] supervised home exercise program (HEP): No 5. Dike Supervisor: No Passive conservative therapy lasting 6 weeks [...] > 1 time per night or hematuria MOTOR GRADER ROUGH GRADE: Negative for abnormal vaginal bleeding, abnormal vaginal [...] HISTORY OF 07/28/2015 left breast ductotomy EXAMINATION: [id number]: Scoliosis: No Pelvic Tilt: No Leg Length [...] at that time. Suraj Danielson MD Normal [facility] PROGRESS HNO ID: [id number] Author: Lis Morales (Rt) Hasmukh Service: ? Author Type: Marine Insulator Type: Progress Notes Filed: 11/08/2018 3:33 PM [...] 08, 2018 3:32 PM [facility] XR LUMBAR 2V AP/LATon 2018 XR [...] level. IMPRESSION: Transitional L5 vertebral body. Levoscoliosis. 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 Author Type: [...] recommendations. Chuyita Clay MD [facility] PROGRESS HNO ID: [id number] Author: Lis Hickey (Rt) Service: ? Author Type: Marine Insulator Type: Progress Notes Filed: 10/30/2018 3:16 PM [...] 30, 2018 3:15 PM [facility] PROGRESS HNO ID: [id number] Author: Krissy Peace (Fel) Service: ? 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 Follow-up: Following above. rKissy Peace MD Sports Medicine/Orthopaedic Surgery Normal [facility] XR ASP/INJ HIP JT/BURSA RTon 10-30-2018 [...] HIP DESCRIBED ABOVE. Attending Radiologist: Dr. Smith Ha MD Triple Valve Mechanic: Dr. Vivian Bustos DO The procedure was performed by the payroll administrative assistant, and the attending radiologist was not present but immediately available to furnish services during the entire procedure. Cork Cutter: LAVERNE Transcribe Date/Time: Oct 30 2018 3:29P Dictated by : VIVIAN BUSTOS MD This examination was interpreted and the report reviewed and electronically signed by: SMITH HA MD on Oct 30 2018 3:45PM EST [id number] Normal [facility] NURSING PROGon 10-15-2018 Protein mass conc HNO ID: [id number] Author: Yu (Rn) KATIE Vargas Service: Radiology [...] None Electronically Signed By: Yu Vargas RN [facility] XR INJ ARTHROGRAM HIP RTon 0 10-15-2018 XR INJ ARTHROGRAM HIP RT * * *Final Report* * * DATE OF EXAM: Oct 15 2018 2:51PM KENNEDY 0065 - XR INJ ARTHROGRAM HIP RT / PROCEDURE REASON: ACETABULAR TEAR RT HIP * * * * Physician Interpretation * * * * PROCEDURE NOTE: PATIENT: JAYLA PERLA. . PRIMARY PROVIDER: Ayleen Ha MD. [employer] OFFICER(S): RT. Yu Ayala RN. PROCEDURE: XR INJ [...] (DAP): 0.0 mGy*cmS2 Fluoro time: 0:18 min:sec Cork Cutter: LAVERNE Transcribe Date/Time: Oct 15 2018 3:04P Dictated by : Pawel HA MD This examination was interpreted and the report reviewed and electronically signed by: Pawel HA MD on Oct 15 2018 3:12PM EST [id number] [facility] HOSPon 10-10-2018 HOSP Patient:Imer Perla MRN: [...] for the following basenames: K,HCT Progress Notes ([facility]): Yarelis Danielle PA-C 10/11/2018 3:07 PM Signed Responded via [employer]. Yarelis Danielle PA-C Progress Notes ([facility]): RT Ion 09/21/2018 12:59 PM Signed Radiology [...] JHONY James September 21, 2018 12:56 PM [facility] BRIEF OP NOTon 10-05-2018 BRIEF OP NOT HNO ID: [id number] Author: Sri Weber Service: Radiology Author Type: Physician Type: Brief Op Note Filed: 10/05/2018 3:35 PM Note Text: Procedure: Joint injection right hip Pre-procedure Diagnosis: Joint pain Post-procedure Diagnosis Joint pain Anesthesia: local Findings: none Estimated blood loss: none Complication: none Specimen: none Sri Weber MD [facility] MRI ARTHROGRAM HIP RTon 09-21 MRI [...] FROM PRIOR REPAIR. MILD ACETABULAR CHONDRAL FISSURING. Cork Cutter: PSCB Transcribe Date/Time: Oct 05 2018 2:32P Dictated by : MARY KAY KEMP MD This examination was interpreted and the report reviewed and electronically signed by: CARSON CARRASQUILLO MD on Oct 15 2018 4:08PM EST [id number] [facility] XR INJ ARTHROGRAM HIP RTon 0 [...] a subsequent day with repeat MR imaging. Cork Cutter: PSCB Transcribe Date/Time: Oct 05 2018 3:32P Dictated by : SRI WEBER MD This examination was interpreted and the report reviewed and electronically signed by: SRI WEBER MD on Oct 05 2018 3:34PM EST [id number] [facility] HOSPon 09-24-2018 HOSP Patient:Imer Perla MRN: [...] for the following basenames: K,HCT Progress Notes ([facility]): RT Ion 09/21/2018 12:59 PM Signed Radiology [...] September 21, 2018 12:56 PM Progress Notes ([facility]): Epifanio Mosley Jr, MD 09/21/2018 1:32 PM [...] experiencing run in your family? 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 PROCEDURE: None. [facility] Office Visit (ANASTACIOORRM ) GARFIELDJAYLA PETERSEN ([id number]) 1985 F Date Time Provider Department 09/21/18 1:00 PM EPIFANIO MOSLEY JR During your visit today, we recorded the following information about you: Epifanio Mosley Jr, MD 09/21/2018 1:32 PM Signed HISTORY OF PRESENT ILLNESS: Jayal is a 33 year old female. She [...] experiencing run in your family? 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 Service: (none) Author [...] experiencing run in your family? 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 Epifanio Mosley Jr, MD Normal [facility] PROGRESS HNO ID: [id number] Author: Pat (RtAlysha Horowitz Service: (none) Author Type: Marine Insulator Type: Progress Notes Filed: 09/21/2018 12:59 PM [...] James September 21, 2018 12:56 PM Normal [facility] XR HIP 3V PELV+ AP/LAT RTon [...] of the hip since the prior study. Cork Cutter: PSCB Transcribe Date/Time: Sep 21 2018 1:10P Dictated by : YOVANY ROGERS MD This examination was interpreted and the report reviewed and electronically signed by: YOVANY ROGERS MD on Sep 21 2018 5:33PM EST [id number] Normal [facility] BRAIN W AND WO CONTRASTon BRAIN W AND WO CONTRAST STUDY:BRAIN W WO CONTRAST; 05/16/2018 7:10 pmINDICATION:CERVICOGENIC HEADACHE.COMPARISON:None.ACC ESSION NUMBER(S):[id number] RING CLINICIAN:Jayson MercedesTECHNIQUE:Axial diffusion, axial T2, axial [...] masslesion is noted.The study was interpreted at [facility]. Normal [facility] CERVICAL SP APANDLAT OR 2-3 VWSon 05-07-2018 CERVICAL SP APANDLAT OR 2-3 VWS STUDY:CERVICAL SP AP LAT OR 2-3 VWS; 05/07/2018 11:39 amINDICATION:CERVICOGENIC HEADACHE.COMPARISON:None.[facility] ESSION NUMBER(S):[id number] RING CLINICIAN:Jayson MercedesFINDINGS:Multiple views of the cervical spine are obtained. Alignment isintact except for straightening of the lower cervical lordosis.. Thevertebral body heights and disc heights are preserved. . No acutefracture-dislocation.IM PRESSION:Straightening of normal cervical lordosis. Otherwise unremarkableexam. Normal [facility] Office Visit (Neuro-General) on 05-07-2018 Office Visit [...] reviewed family history. I personally reviewed 12-system ieegrt-kw-fuzzsb checklist completed by patient, included in medical [...] of myocardial infarction (V17.3) (Z82.49) FHx: early [place] (V17.3) (Z82.49) Family history of malignant neoplasm [...] MG Oral Tablet Vitals Vital Signs Recorded: 24Vge7153 09:59AMHeart Zrtf12Bugiqv0 ft 4 zvAlvurk351 lb BMI Jrorqmffhw71.9BSA Calculated1.87 Physical ExamConstitutional: General appearance: no acute [...] w/wo Contrast; Status:Hold For - Scheduling; Requested for:[id number]; Perform:[facility]; Due:31Jak2951;Ordered; For:Cervicogenic headache; Ordered By:Jayson Mercedes;Radiologist to Determine Optimal Study : YWhat are the patient's signs and symptoms? : Headache Xray Cervical Spine 2 or 3 View; Status:Hold For - Scheduling; Requestedfor:[id number]; Perform:[facility]; Due:13Nwo9884;Ordered; For:Cervicogenic headache; Ordered By:Jayson Mercedes;Radiologist to Determine Optimal Study : YWhat are the patient's signs and symptoms? : Headache Physical Medicine and Rehab Referral Evaluation and Treatment Evaluate AND Treat Status:Hold For - Scheduling Requested for: [id number] Ordered;For: Cervicogenic headache; Ordered By: Jayson Mercedes Performed: Due: 84Jnz9226 Physical Therapy Referral Evaluation and Treatment Evaluate AND Treat Status: Hold For -Scheduling Requested for: 91Vod7677 Ordered;For: Cervicogenic headache; Ordered By: Jaysno Mercedes Performed: Due: [id number] Provider ImpressionsPatient most likely has migraine headache [...] Joy VELAZQUEZ MD Out: 05/10/17 16:45:00 Normal [facility] XR FOOT LEFT COMPLETEon 04-22 XR FOOT LEFT COMPLETE Clinical Indicatio n: Remote injury/persistent painFindings: LeftThe soft tissues are unremarkable, the osseous structures are wellmineralized. There is no evidence of fracture, dislocation or otherosseous abnormality. The joint spaces are intact. Incidentally notedmild hammertoe deformity.Impression:Negativ e left foot.Technologist: KMDictated By: Joy VELAZQUEZ MD By: Joy VELAZQUEZ MD Out: 05/10/17 16:43:48 Normal [facility] Vital Signs Date Time Vital Sign Value Performing Clinician Facility 05-15-2024 14:49-0400 Body mass index (BMI) [Ratio] 30.04 kg/m2 Mahesh Zapata MD Work Phone: [facility] 05-15-2024 14:49-0400 Body weight 79.38 kg Mahesh Zapata MD Work Phone: [facility] 05-15-2024 14:49-0400 Diastolic blood pressure 78 mm[Hg] Mahesh Zapata MD Work Phone: [facility] 05-15-2024 14:49-0400 Systolic blood pressure 122 mm[Hg] Mahesh Zapata MD Work Phone: [facility] 03-19-2022 18:37-0400 Body height 162.6 cm Anna Rubi MD Work Phone[facility] 03-19-2022 18:37-0400 Body mass index (BMI) [Ratio] 30.04 kg/m2 Anna Rubi MD Work Phone: [employer] 03-19-2022 18:37-0400 Body temperature 98.2 [degF] Anna Rubi MD Work Phone: [facility] [employer] [facility] 03-19-2022 18:37-0400 Body weight 79.38 kg Anna Rubi MD Work Phone: [facility] [employer] [facility] 03-19-2022 18:37-0400 Diastolic blood pressure 96 mm[Hg] Anna Rubi MD Work Phone: [employer] 03-19-2022 18:37-0400 Heart rate 83 /min Anna Rubi MD Work Phone: [employer] 03-19-2022 18:37-0400 SaO2% (BldA) [Mass fraction] 100 % Anna Rubi MD Work Phone: [employer] 03-19-2022 18:37-0400 Systolic blood pressure 151 mm[Hg] Anna Rubi MD Work Phone: [facility] Encounters Encounter Date Encounter Type Care Provider Facility Start: 06-06-2024 End: 06-06-2024 Patient encounter procedure DO Saad Bunting Work Phone: [facility] Start: 06-06-2024 End: 06-06-2024 ambulatory DO Saad Bunting Work Phone: [facility] Work Phone: Start: 06-04-2024 End: 06-04-2024 ambulatory MICHAEL LEIGH Not Available Start: 05-29-2024 End: 05-29-2024 Patient encounter procedure DO Saad Bunting Work Phone: [facility] [place] Work Phone: Start: 05-29-2024 End: 05-29-2024 ambulatory DO Saad Bunting Work Phone: [facility] Work Phone: Start: 05-29-2024 Encounter for genera l adult medical examination without abnormal findings Saad Bunting [facility] Start: 05-15-2024 End: 05-15-2024 ambulatory MAHESH ZAPATA Not Available Start: 05-15-2024 End: 05-15-2024 Initial preventive medicine new pt age 18-39yrs Mahesh Zapata MD Work Phone: [facility] Comment on above: Well woman exam with routine gynecological exam; Cervical cancer screening; Screening for HPV (human papillomavirus); Mild dysplasia of cervix (CHAS I); Abdominal cramping Start: 05-15-2024 End: 05-15-2024 Patient encounter procedure Mahesh Zapata MD Work Phone: [facility] Start: 05-15-2024 End: 05-15-2024 Bamboo flowsheet Mahesh Zapata MD Work Phone: [facility] Start: 05-15-2024 End: 05-15-2024 Bamboo flowsheet Mahesh Zapata MD Work Phone: [facility] Start: 05-15-2024 End: 05-21-2024 Orders Only Mahesh Zapata MD Work Phone: [facility] Unsolicited Start: 10-19-2023 End: 10-19-2023 ambulatory MICHAEL LEIGH Not Available Start: 09-07-2023 End: 09-07-2023 ambulatory MICHAEL LEIGH Not Available Start: 11-02-2022 End: 11-02-2022 ambulatory DO Saad Bunting Work Phone: [facility] Work Phone: Start: 11-02-2022 End: 11-02-2022 Patient encounter procedure DO Saad Bunting Work Phone: [facility] Start: 10-04-2022 End: 10-04-2022 ambulatory DO Saad Bunting Work Phone: [facility] Work Phone: Start: 10-04-2022 End: 10-04-2022 Patient encounter procedure DO Saad Bunting Work Phone: [facility] [place] Work Phone: Start: 05-25-2022 End: 05-25-2022 ambulatory DO Saad Bunting Work Phone: [facility] Work Phone: Start: 05-25-2022 End: 05-25-2022 Patient encounter procedure DO Saad Bunting Work Phone: [facility] [place] Start: 03-19-2022 End: 03-19-2022 Emergency department patient visit ANNA RUBI [facility] Start: 03-19-2022 End: 03-19-2022 Emergency department patient visit Anna Rubi MD Work Phone: [facility] ED Comment on above: Contusion of right f orearm, initial encounter (Primary Dx) Start: 10-15-2018 Patient encounter procedure J NANCY [facility] Start: 10-05-2018 Patient encounter procedure EPIFANIO MOSLEY [facility] Start: 05-16-2018 Patient encounter Jayson Salinas ility:[facility] Start: 05-16-2018 Patient encounter Humaira Salinas ility:[id number] Start: 05-07-2018 Patient encounter Jayson Salinas ility:[facility] Start: 05-07-2018 Patient encounter Jayson Mercedes Facility:[id number] Start: 05-07-2018 Patient encounter Humaira Salinas ility:[id number] Start: 05-10-2017 End: 05-11-2017 Ambulatory DEANGELO MUKHERJEE Facility:[id number] Procedures Date Procedure Procedure Detail Performing Clinician [...] 06/04/2024 8:30 AM EDT Ancillary Procedure [facility] [address] [place] [id number] [facility] Start: 04-21-2022 Influenza vaccination Flu vaccine (# 1) [employer] Start: 08-12-2021 Depression Screen Depression Screen [employer] Start: 01-10-2020 Screening for malign ant neoplasm of cervix [employer] Start: 2016 Screening for malign ant neoplasm of cervix HPV (without or with Pap) [facility] Start: 2005 DTaP/Tdap/Td vaccine (1 - Tdap) DTaP/Tdap/Td vaccine (1 - Tdap) [facility] Start: 2004 Hepatitis C screening Hepatitis C sc reen [employer] Start: 2001 HIV screening HIV screen [facility] Start: 1992 Pneumococcal 0-64 ye ars Vaccine (1 - PCV) Pneumococcal 0-64 years Vaccine (1 - PCV) [facility] Start: 1987 Varicella vaccine (1 of 2 - 2-dose childhood series) Varicella vaccine (1 of 2 - 2-dose childhood series) [facility] Start: 1986 COVID-19 Vaccine (#1) COVID-19 Vacci ne (#1) [facility] IGP, APTIMA HPV, RFX 16/18,45 ([facility] [place] IGP, APTIMA HPV, RFX 16/18,45 ([facility] [place] Lab Routine Cervical cancer screening Screening for HPV (human papillomavirus) Ordered: 05/15/2024 [facility] Work Phone: Comment on above: Ordered: 05/15/2024 End: 03-19-2022 XR RADIUS ULNA RIGHT (2 VIEWS) [facility] Work Phone: Comment on above: Once for 1 Occurrenc es starting 03/19/2022 until 03/19/2022 Payers Date Payer Category Payer Self-pay 2020 Unknown BCBS BCBS [id number] 2020-Present [phone] [address] [place] [address] [id number] 2019 [facility] ISM11 [id number] 1986 Unknown [id number] 56 1986 Unknown [id number] 56 1986 Unknown [id number] 56 1986 Unknown [id number] 85 1986 Unknown [id number] 259 1986 Unknown [id number] 259 1986 Unknown [id number] 259 1986 Unknown [id number] 259 1986 Unknown [id number] 259 Unknown [id number] 31 Unknown [id number] 31 Social History Date Type Detail Facility Start: 03-19-2022 End: 05-15-2024 Tobacco smoking status [facility] Ex-smoker [employer] History of tobacco use Current smoker [employer] Phone: History of tobacco use Cigarette Smoker [employer] Phone: Start: 03-19-2022 End: 05-15-2024 Cigarettes smoked current (pack per day) - Reported 1 [employer] Phone: Start: 03-19-2022 End: 05-15-2024 Tobacco use and exposure Smokeless tobacco non-user [employer] Phone: Start: 03-19-2022 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) [employer] Phone: Start: 08-12-2020 History 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 5 [employer] Phone: Start: 08-12-2020 History SDOH 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 Worry 1 [employer] Phone: Start: 1985 Sex Assigned At Not on file B ON [employer] Phone: Start: 03-09-2022 End: 03-19-2022 Exposure to SARS-CoV-2 (event) Not sure [facility] [employer] Phone: Start: 1985 Sex Assigned At Female F [facility] Start: 05-14-2024 End: 05-15-2024 Alcoholic beverage intake Ex-drinker (finding) [facility] Start: 10-19-2023 End: 05-15-2024 Tobacco use panel [facility] Start: 09-04-2023 Alcohol Comment caffeine intak e: 2-3 cups per day Coffee [facility] Start: 09-07-2023 Tobacco smoking status NHIS Smokes tobacco daily [facility] NEGATED: Highlighted rowStart: NINF History of tobacco use Passive smoker [employer] Phone: History of Present illness Narrative 05-15-2024 [...] Review Audit Reviewed by Angie Goode MA ([employer]) on 05/15/24 at 1451 Medication Order Taking? Sig Documenting Provider Last Dose Status acetaminophen (Tylenol) 325 MG suppository [id number] No Insert into the rectum Michael Gail Leigh, DO Taking Active ibuprofen 200 MG tablet [id number] No Take by mouth Michael Leigh, DO [...] screening Z12.4 IGP, APTIMA HPV, RFX 16/18,45 ([facility] [place] 3. Screening for HPV (human papillomavirus) Z11.51 IGP, APTIMA HPV, RFX 16/18,45 ([facility] [place] 4. Mild dysplasia of cervix (CHAS I) N87.0 5. Abdominal cramping R10.9 I suspect adenomyosis. Check sono Assessment/Plan Orders Placed This Encounter Procedures IGP, APTIMA HPV, RFX 16/18,45 ([facility] [place] Order Specific Question: Print requisition? Answer: No documented in this encounter [facility] Evaluation note Note Date & Type Note Facility Evaluation note Diagnosis Contusion of right forearm, initial encounter- Primary documented in this encounter [facility] [employer] Phone: Evaluation note Note Date & Type Note Facility Evaluation note No assessment information availa [facility] Work Phone: Evaluation note Note Date [...] pain, unspecified site documented in this encounter [facility] Hospital Discharge instructions Attachments Note Date & Type Note Facility Hospital Discharge instructions The following attachments cannot be sent through Care Everywhere.Contusion (Georgian)documented in this encounter [facility]ALE[facility] Work Phone: Summary Purpose Family History No [...] section and content) DATE CREATED AUTHOR 02/14/2018 [facility] DATE CREATED AUTHOR AUTHOR'S ORGANIZ ATION 06/02/2018 [employer] DATE CREATED AUTHOR AUTHOR'S ORGANIZ ATION 06/16/2018 [facility] DATE CREATED AUTHOR AUTHOR'S ORGANIZ ATION 06/21/2018 [facility] DATE CREATED AUTHOR AUTHOR'S ORGANIZ ATION 10/15/2018 [facility] DATE CREATED AUTHOR AUTHOR'S ORGANIZ ATION 03/29/2019 [facility] DATE CREATED AUTHOR AUTHOR'S ORGANIZ ATION [facility] [place] DATE CREATED AUTHOR AUTHOR'S ORGANIZ ATION 03/22/2022 [facility] DATE CREATED AUTHOR AUTHOR'S ORGANIZ ATION 06/06/2024 [facility] DATE CREATED AUTHOR AUTHOR'S ORGANIZ ATION 06/11/2024 [facility] Reason for Visit (unrecogniz [...] Active Bharath Soto DO 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[employer] Relationship Specialty Start Date End Date Saad Mcclain [address] [place] [address] PCP - General Family Medicine 09/07/23 Team Status: Inactive Member Role Status Dates Saad Bunting , DO Primary Care Provide r, Attending Provider Active Start: May 29, 2024 End: May 29, 2024 Team Status: Inactive Member Role Status Dates Saad Mcclain DO Primary Care Provide r, Attending Provider Active Start: June 06, 2024 End: June 06, 2024 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 [facility] [employer] [facility]. provides no warranty or guarantee of the accuracy or completeness of information in this document.
== END 2024-12-09 09:22 | disposition home or self-care (01) ==
LOC: MRI 09:21
PROVIDERS: PCP Family Medicine; Visit Provider Physician Assistant
DX: S69.91XD Unspecified injury of right wrist, hand and finger(s), subsequent encounter (principal)
CPT/HCPCS: 73221